=== PATIENT | male | born 1970 | race Caucasian/White ===

== ENCOUNTER 2025-02-18 12:21 | Inpatient (IN) | payer BC, SELFPAY ==
[2025-02-18 07:44] VITALS: BP 159/95
--- NOTE | 2025-02-18 08:11 | ED.GENMED ---
History of Present Illness
General
Chief Complaint: Male Genito-Urinary Symptoms
Source: patient and spouse
Time Seen by Provider: 02/18/25 07:55
History of Present Illness
History of Present Illness:
Note:
CHIEF COMPLAINT(S)
Left groin pain and lump.
HISTORY OF PRESENT ILLNESS
The patient is a 55-year-old male with a history of hypertension and type 2 diabetes who presents with pain and a lump in the left groin area. The symptoms began after moving furniture on Monday, and while taking a shower, the patient felt a lump
that felt inner and potentially like a boil. The pain has increased, and in addition to taking fluids excessively yesterday, the patient reports feeling dehydrated and 'delusional,' with a stated fever of 99.9�F initially recorded outside. The
patient has been managing pain with Ibuprofen and Tylenol but notes significant discomfort, particularly when leaning forward. The patient denies any specific injury but noted discomfort began during the shower after the incident. The patient is
concerned whether the issue is a hernia or an abscess.
CHRONIC MEDICAL CONDITIONS SIGNIFICANTLY AFFECTING CARE
- Hypertension
- Type 2 diabetes
SOCIAL HISTORY
The patient denies smoking tobacco currently but admits to occasional alcohol use. 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
MEDICATIONS
- Lisinopril (for hypertension)
- Metformin (for type 2 diabetes)
- Glipizide (for type 2 diabetes)
PHYSICAL EXAM
- Alert, awake, and oriented; no neurologic deficits; moving all extremities with no edema.
- Temperature: 99.9�F
- Cardiac: S1S2 heart sounds normal, no murmurs, tachycardia present.
- Respiratory: Lungs clear to auscultation, no respiratory distress.
- Abdomen: No costovertebral angle tenderness, no rebound tenderness or guarding; tenderness noted in the left inguinal canal with a mass palpated.
- Extremities: Normal distal pulses, no edema.
PROBLEM LIST
Acute:
- Left groin pain and palpable lump
- Tachycardia
Chronic:
- Hypertension
- Type 2 diabetes
PLAN
- Initiate an intravenous line and conduct blood tests to evaluate infection markers and general health status.
- Administer non-narcotic analgesics for pain relief, considering the patients preference to avoid narcotics due to adverse reactions.
- Assess further for possible hernia or abscess.
- Continue monitoring vital signs and ensure patient is comfortable.
DIFFERENTIAL DIAGNOSIS
The Differential Diagnosis includes, in no particular order and is not limited to:
- Inguinal hernia
- Abscess
- Lymphadenopathy
- Lipoma
- Soft tissue mass
- Testicular torsion
- Varicocele
- Hydrocele
- Epididymitis
- Urinary tract infection
CARE-UPDATE
02/18/25 - 13:12
CT scan shows soft tissue density in the posterior aspect of the left hemiscrotum with soft tissue stranding, suggesting contusion versus inflammation and infection. Ultrasound of testicles indicates normal appearance bilaterally, with noted
left-sided scrotal skin thickening, left hydrocele, and right hydrocele. Patient discussed results and will be admitted under hospitalist care, with urology consultation for scrotal cellulitis and fever, due to concerns for sepsis. Initiated IV
Zosyn per discussion with pharmacists.
Disposition:
DIAGNOSIS
- Scrotal cellulitis with associated fever (ICD-10: L03.319)
SUMMARY OF ENCOUNTER
A 55-year-old male with a history of hypertension and type 2 diabetes presented with left groin pain and a noticeable lump. The symptoms began after moving furniture, leading to the discovery of a lump during a shower. Initial management included
pain relief with Ibuprofen and Tylenol. Due to the development of fever and concerns for potential infection, further evaluation was conducted. Imaging revealed left-sided scrotal skin thickening and hydrocele. The patient exhibited signs of
potential sepsis, prompting admission for further management.
DISPOSITION
Admit
CONSIDERATION FOR ADMISSION
The patient was admitted under hospitalist care for further evaluation and management of scrotal cellulitis and potential sepsis.
ASSESSMENT
The patient presented with left groin pain, a palpable mass, fever, and tachycardia, with imaging suggesting scrotal cellulitis and inflammation, raising concerns for possible sepsis.
EMERGENCY TREATMENTS ADMINISTERED
Intravenous antibiotics (IV Zosyn) were administered per urology consultation for scrotal cellulitis.
MANAGEMENT OF THE PATIENTS CARE WAS DISCUSSED WITH
The case was discussed with the hospitalist and a urology wireless sales consultant for further management of scrotal cellulitis and monitoring for sepsis.
PLAN
- Admit for IV antibiotic therapy and close monitoring for signs of sepsis.
- Urology consultation for further evaluation and management.
- Initiate supportive care with ongoing monitoring of vital signs and symptoms.
INDEPENDENT INTERPRETATION OF TESTS
- My independent interpretation of the CT scan shows a soft tissue density in the posterior aspect of the left hemiscrotum, suggesting contusion versus inflammation and infection.
- My independent interpretation of the ultrasound indicates normal testicular appearance bilaterally, with left-sided scrotal skin thickening and hydrocele.
MEDICATION RECONCILIATION
- Initiated IV Zosyn for treatment of scrotal cellulitis.
MEDICAL DECISION MAKING
Number and Complexity of Problems Addressed:
The patient presented with acute left groin pain and a potential infectious process. Concerns of sepsis necessitated admission and aggressive antibiotic therapy, significantly increasing the complexity of this encounter.
Data:
Reviewed CT scan and ultrasound to guide diagnosis and management plan. Consistency between imaging findings supported the diagnosis of cellulitis.
Risk:
Consideration for hospitalization due to severity of presentation and potential for sepsis was warranted. Radiation exposure from CT scan and the initiation of IV antibiotics were necessary steps in managing the patients condition.
Phy Exam
Physical Exam
Physical Exam:
.
Sepsis
Sepsis Screening
Sepsis Assessment: Sepsis Ruled Out
Sepsis Screen
Sepsis Screen: Sepsis Ruled Out
Date: 02/18/25
Time: 13:16
Course
Orders/Labs/Results
Orders:
Orders
02/18/25 08:08
Ketorolac [Toradol] 15 mg IV NOW STA
02/18/25 08:09
CT Abd/pelvis W Iv Cont Urgent
Comment:
Reason For Exam: llq/ inguinal mass, fever
Urinalysis Reflex To Culture Urgent
02/18/25 08:10
IV Insert/Care/Rem.- Treatment PRN
02/18/25 08:16
Complete Blood Count/With Diff Urgent
Comprehensive Metabolic Panel Urgent
Lactic Acid Q4H
Comment: CANCEL 2nd LACTIC ACID IF 1st LACTIC ACID IS LESS THAN 2
Blood Culture Q30M
TODD Source: Blood/Venous
Specimen Description:
02/18/25 08:26
Lactated Ringers [Lr] 1,000 ml IV BOLUS
02/18/25 08:42
Blood Culture Q30M
TODD Source: Blood/Venous
Specimen Description:
02/18/25 Lunch
2000 calorie (17 carb) Diabetic
At Your Request: Full Participation
Does patient need a safe tray?: No
02/18/25 10:14
Piperacillin/Tazo 4.5 Gram [Zosyn] 4.5 gram in 100 ml IV NOW
02/18/25 10:30
US Scrotum Urgent
Comment:
Reason For Exam: left groin swelling, fever
02/18/25 11:32
Admit/Transfer Patient As Directed
Co-Sign Provider:
Level of Care: Inpatient admission
Assign to:: Medical/Surgical
Physician / Group: Amalia Walter
Diagnosis: sepsis 2/2 left scrotal cellulitis
Reason for Hospitalization: sepsis 2/2 left scrotal cellulitis
Expected length of stay greater than two midnights?: Yes
ELOS- Estimated Length of Stay in days: 3
I certify the patient meets the requirements for IP care: Yes
PRN Pain Medication Management As Directed
May give lesser potent ordered pain med per pt: Yes
preference::
Protocol:: Medication orders for pain may be administered in a
manner that supports deferring to patient preference
when the pt is:
- Requesting an ordered lesser potent pain medication.
Least to most potent pain medications are defined
as: acetaminophen < NSAID < tramadol < opioids
(morphine, oxycodone, hydromorphone).
- Requesting a lesser dose of the same medication IF
ORDERED.
- Requesting a less intrusive route of administration
if both routes are prescribed by the provider (PO <
IV).
02/18/25 11:33
Code Status As Directed
Resuscitation Status: Full Code
02/18/25 11:37
Bedside Glucose Monitoring-ONCE As Directed
02/18/25 11:39
Lactated Ringers [Lr] 500 ml IV BOLUS
02/18/25 12:58
Acetaminophen [Tylenol] 650 mg PO Q4HPRN PRN
Bisacodyl [Dulcolax] 10 mg RECTAL [id number] PRN
Dextrose 50%-Water [Dextrose 50% Syringe] 12.5 grams IV [id number] PRN
Docusate W/Senna [Senokot-S] 1 tablet PO BIDPRN PRN
Glucagon [GlucaGen] 1 mg IM PRN PRN
HYDROmorphone [Dilaudid] 0.5 mg IV Q3HPRN PRN
Lactated Ringers [Lr] 1,000 ml IV 125 mls/hr
Polyethylene Glycol Powder [Miralax] 17 grams PO DAILYPRN PRN
02/18/25 12:58
Activity As Directed
Activity Level: As Tolerated
Bedside Glucose Monitoring As Directed
Frequency: AC&HS
Additional Instructions:: Change to q6h if pt on TPN, tube feeding or not eating
Vital Signs As Directed
Frequency: Per unit guidelines
DX Deep Vein Thrombosis Video Routine
02/18/25 16:30
Insulin Aspart Corrective Low [Novolog Flexpen-Low Resistance] See Protocol SC AC
Piperacillin/Tazo 3.375 Gram [Zosyn] 3.375 gram in 50 ml IV Q6H
02/18/25 17:00
Glipizide [Glucotrol] 10 mg PO BID@0800,1700
02/18/25 20:00
Heparin 5,000 units SC Q12
02/18/25 22:00
Atorvastatin [Lipitor] 40 mg PO HS
02/19/25 06:00
Basic Metabolic Panel IN AM
Complete Blood Count/With Diff IN AM
Glycohemoglobin (HgbA1c) IN AM
Magnesium IN AM
Abnormal Lab Results
02/18/25
08:16
WBC 20.0 H 10^3/uL
(4.8-10.8)
Abs Immat Gran (auto) 0.2 H 10^3/uL
(0-0.05)
Absolute Neuts (auto) 16.9 H 10^3/uL
(1.4-6.5)
Absolute Monos (auto) 1.3 H 10^3/uL
(0.1-0.6)
Immature Gran % 0.8 H %
(0-0.5)
Neutrophils % 84.4 H %
(42.2-75.2)
Lymphocytes % 8.1 L %
(20.5-51.1)
Sodium 133 L mmol/L
(135-145)
BUN 25 H mg/dl
(9-20)
Creatinine 1.6 H mg/dL
(0.7-1.3)
Glucose 320 H mg/dl
(70-99)
Total Bilirubin 1.6 H mg/dl
(0.2-1.3)
AST 16 L U/L
(17-59)
02/18/25 08:16
02/18/25 08:16
Vital Signs
Initial and Last Documented VS:
Initial Vital Signs
Temp Pulse Resp BP Pulse Ox
99.9 F 120 20 159/95 96
02/18/25 07:44 02/18/25 07:44 02/18/25 07:44 02/18/25 07:44 02/18/25 07:44
Last Documented Vital Signs
Temp Pulse Resp BP Pulse Ox
98.4 F 78 18 138/84 98
02/18/25 11:35 02/18/25 11:35 02/18/25 11:35 02/18/25 11:35 02/18/25 11:35
*Pulse Oximetry
Patient hypoxic: no (98% room air)
*Critical Care Note
Total Time (30-74mins, 75-104mins- exclusive of procedures): Not Applicable
ED Attending Note
-
Portions of this chart may have been created with voice recognition software.� Occasional wrong word or��sound alike� substitutions may have occurred due to the inherent limitations of voice recognition software.
Discharge Plan
Departure
Patient Disposition: Admit
Date of Disposition: 02/18/25
Time of Disposition: 10:20
Admit to: Telemetry
Presentation/result/management discussed w/ accepting MD/DO: Hospitalist
Patient with high blood pressure during this ER visit?: Yes
Condition: Fair
Discharge Problem:
Cellulitis of scrotum
Interventions
Interventions:
*Risk Screen - Suicide Last Done: 02/18/25 07:44
*General Assessment Last Done: 02/18/25 12:24
*Neglect/Abuse Screening Last Done: 02/18/25 12:49
*ED- Fall Risk Assessment Last Done: 02/18/25 12:49
*ED COVID-19 Vaccine History Last Done: 02/18/25 07:44
*Nursing Disposition Last Done: 02/18/25 12:49
ED-Male Genitourinary Assessment Last Done: 02/18/25 12:26
Discharge Date and Time
Discharge Date/Time: 02/18/25 12:50
[2025-02-18] MEDS: TORADOL 15 MG IV (08:24)
[2025-02-18 08:26] VITALS: BMI 31.0
[2025-02-18 08:33] LABS: % Basophils 0.4 % (0-2); % Immature Granulocytes 0.8 % (0-0.5); % Lymphocytes 8.1 % (20.5-51.1); % Monocytes 6.3 % (1.7-9.3); % Neutrophils 84.4 % (42.2-75.2); Absolute Basophils 0.1 10^3/uL (0-0.2); Absolute Immature Granulocytes 0.2 10^3/uL (0-0.05); Absolute Lymphocytes 1.6 10^3/uL (1.2-3.4); Absolute Monocytes 1.3 10^3/uL (0.1-0.6); Absolute Neutrophils 16.9 10^3/uL (1.4-6.5); Mean Corp Hgb Conc. 33.3 g/dL (33.0-37.0); Mean Corpuscular Hgb 28.7 pg (27.0-31.0); Mean Platelet Volume 10.1 fL (7.4-10.4); Nucleated Red Blood Cells % 0 % (-); Platelet Count 198 10^3/uL (130-400); Red Blood Cell Count 5.23 10^6/uL (4.70-6.10); Red Cell Dist. Width 13.2 % (11.5-14.5)
[2025-02-18] MEDS: LR 1000 IV ×3 (08:39→19:59)
[2025-02-18 09:01] LABS: ALT (SGPT) 17 U/L (0-50); AST (SGOT) 16 U/L (17-59); Albumin 3.6 g/dl (3.5-5.0); Alkaline Phosphatase 116 U/L (38-126); Blood Urea Nitrogen 25 mg/dl (9-20); Carbon Dioxide 24 mmol/L (22-30); Chloride 102 mmol/L (98-107); Estimated Creatinine Clearance 59 ml/min; Glucose 320 mg/dl (70-99); Potassium 4.4 mmol/L (3.5-5.1); Sodium 133 mmol/L (135-145); Total Bilirubin 1.6 mg/dl (0.2-1.3); Total Protein 6.6 g/dl (6.3-8.2); eGFR 50.57
[2025-02-18 10:18] LABS: Lactic Acid 1.5 mmol/L (0.7-2.0)
[2025-02-18] MEDS: ZOSYN 100 IV (10:29)
--- NOTE | 2025-02-18 11:11 | HPS.HSE ---
Family Physician
-
Family Physician: Merlin Smiley MD
Chief Complaint
-
left scrotal swelling
History of Present Illness
Mr. Rodney Cabrera is a 55 yo man with hx ex-smoker, HTN, DM presents to the ER with left scrotal swelling and fevers.
Patient states on Monday he was listed something heavy and felt a strain in left groin. Yesterday he had increased pain and fevers. Per he felt warm and had some delirium. He has had progressive redness and swelling of left testicle and so
came to the ER.
+ headache earlier today. No chest pain or shortness of breath. No nausea/vomiting/diarrhea; eating and drinking OK. No LE swelling.
Medical History
Past Medical History
Past Medical History: Reports HTN and NIDDM
Past Surgical History: Reports Other
Social History
Tobacco: Former Smoker
Family History
Family History: Not pertinent
Allergies / Home Medications
Allergies reflects when Allergies were last updated in [facility].
Home Medications with original date entered in [facility]
Allergy/Medication List:
Allergies
Allergy/AdvReac Type Severity Reaction Status Date / Time
No Known Allergies Allergy Verified 02/18/25 07:48
Home Medications
atorvastatin 40 mg tablet 40 mg PO HS High Cholesterol 02/18/25
glipizide 10 mg tablet 10 mg PO BID@0800,1700 Diabetes 02/18/25
hydrochlorothiazide 12.5 mg tablet 12.5 mg PO HS Blood Pressure 02/18/25
lisinopril 40 mg tablet 40 mg PO HS Blood Pressure 02/18/25
metformin 1,000 mg tablet 1,000 mg PO BID@0800,1700 Diabetes 02/18/25
Review of Systems
-
History Source: Patient
A 12 point ROS was completed and negative except as noted: Yes
Physical Exam
Vital Signs
Vital Signs
Temp Pulse Resp BP Pulse Ox
99.9 F 120 20 159/95 96
02/18/25 07:44 02/18/25 07:44 02/18/25 07:44 02/18/25 07:44 02/18/25 07:44
Physical Exam
General: No Apparent Distress
Respiratory: Clear; No Wheezes
Cardiac: S1/S2 and Regular Rhythm
GI: Soft and Non Tender
Musculoskeletal: No Edema
Skin: Warm and Dry; No Rash
Neuro: Awake and AO x 3
Psych: Calm
Laboratory Results
-
02/18/25 08:16
02/18/25 08:16
Laboratory Results
Lactic Acid 1.5 mmol/L (0.7-2.0) 02/18/25 08:16
Total Bilirubin 1.6 mg/dl (0.2-1.3) H 02/18/25 08:16
AST 16 U/L (17-59) L 02/18/25 08:16
ALT 17 U/L (0-50) 02/18/25 08:16
Alkaline Phosphatase 116 U/L (38-126) 02/18/25 08:16
Data Reviewed
-
Diagnostic Radiology: Report Reviewed by me
Lab Data: Labs Reviewed by me
Impression/Plan
-
Mr. Rodney Cabrera is a 55 yo man with hx ex-smoker, HTN, DM presents to the ER with left scrotal swelling and fevers.
Triage VS: T 99.9, P 120, RR 20, BP 159/95, SpO2 96%
LABS: WBC 20, Hg 15, PLT 198, Na 133, K+ 4.4, CO2 24, BUN 25, Cr 1.6, Glucose 320, lactate 1.5, T. Bili 1.6, AST 16, ALT 17, Alk Phos 116
Abdomen/Pelvis CT 02/18/25
IMPRESSION: Stranding soft tissue density involving the visualized superior left hemiscrotum. Reported history of recent injury. This could represent stranding from contusion. Main differential consideration of stranding from inflammation/infection.
Of note, the entire scrotum including the testicles are not fully included on the puttc-un-cver of this examination.
There is no evidence for bowel herniation.
Fatty infiltration the liver.
Two 2 mm calcification within the pancreas, compatible with benign dystrophic calcifications. No CT findings to suggest acute pancreatitis.
Mild to moderate atrophy of the left kidney, asymmetric compared to the right.
Bony degenerative changes as described.
Mild to moderate atrophy of the left kidney, asymmetric compared to the right. No gross evidence for significant narrowing of the left renal artery. No other focal abnormality of the kidneys. The visualized pelvicalyceal systems and ureters appear
within normal limits. No abnormality of the urinary bladder.
Scrotal US 02/18/25
IMPRESSION: Normal sonographic appearance of both testes.
Small to moderate-sized right hydrocele. Minimal left hydrocele.
Suggestion of mild left-sided scrotal skin thickening, greater than on the right.
Sepsis secondary to left scrotal cellulitis
-lactate WNL
-admit to med/surg
-CT with stranding left hemiscrotum; US with minimal left hydrocele; mild left-sided scrotal skin thickening
-Urology consulted
-continue IV Zosyn
-IVF
-F/U blood cultures
-F/U UA
NIVIA
-no hydro or bladder abnormality seen on CT
-IVF as above
-hold [employer] lisinopril; HCTZ; Metformin
-no NSAIDs
Essential HTN
-hold [employer]IST lisinopril; HCTZ
NIDDM
-hold [employer]IST Metformin
-[employer]IST Glipizide
-ISS low
HLD - [employer] SPECIALIST Statin
DVT PPx hep subQ
FULL CODE
76 MINUTES spent on patient care
[2025-02-18 11:35] VITALS: BP 138/84
[2025-02-18] MEDS: LR 500 IV (11:55)
[2025-02-18 13:09] LABS: Glucose - Point of Care 315 mg/dl (70-99)
[2025-02-18 13:10] VITALS: BP 129/75
[2025-02-18 13:11] VITALS: BMI 40.8
[2025-02-18] MEDS: NOVOLOG FLEXPEN-LOW RESISTANCE 4 UNITS SC (13:23)
--- NOTE | 2025-02-18 13:34 | PTCARENOTE ---
Received pt as admit from ED. AAOX3. VSS. +2 edema and erythema noted to scrotum. Elevated with towel. Pt denies need for pain medication at this time. IVF infusing per order. Assessment documented. Pt resting in bed, call katz in reach.
--- NOTE | 2025-02-18 14:14 | CM ---
CM reviewed chart and met with pt and his bedside in rm 410. Lives with his in multistory home, [address]. 1st floor bath. Pt independent in ADLs. No history of VN or SNF. CM will continue to follow for all discharge planning needs.
PCP: Merlin Smiley
Pharmacy: [address]
Discharge plan: Anticipate home pending ongoing medical evaluation, continue to follow for needs
[2025-02-18] MEDS: TYLENOL 650 MG PO (15:23)
[2025-02-18 15:57] VITALS: BP 143/83
[2025-02-18] MEDS: ZOSYN 50 IV ×2 (16:30→21:39)
[2025-02-18 16:46] LABS: Urine Albumin 4+ (Neg - Trace); Urine Bilirubin Negative (Negative); Urine Character Clear (Clear); Urine Color Yellow; Urine Glucose 4+ (Negative); Urine Ketone 1+ (Negative); Urine Leukocyte Negative (Negative); Urine Nitrite Negative (Negative); Urine Occult Blood 1+ (Negative); Urine Specific Gravity 1.015 (<1.030); Urine Urobilinogen Negative (Neg - 1+)
[2025-02-18 16:46] LABS: Glucose - Point of Care 379 mg/dl (70-99)
[2025-02-18 17:10] LABS: Urine Squamous Cell 16-20 /LPF (Few)
[2025-02-18 17:11] LABS: Urine Bacteria Few (Negative); Urine Red Blood Cell 0-2 /HPF (0-2)
[2025-02-18] MEDS: GLUCOTROL 10 MG PO (17:23)
[2025-02-18] MEDS: NOVOLOG FLEXPEN 5 UNITS SC (18:31)
[2025-02-18] MEDS: HEPARIN 5000 UNITS SC (19:24)
--- NOTE | 2025-02-18 19:40 | CONS.URO ---
Consultation
-
Date/Time Consultation Performed: 02/18/251939
Performing Provider: Peffer
Reason for Consultation: Cellulitis
Medical History
History of Present Illness
55M admitted for fever and scrotal pain over past few days after some manual work over the weekend
Suspected cellulitis on exam
CT scan showed scrotal skin stranding and some concern for a lesion, for which urology was consulted
Follow up US showed no concerning mass, only scrotal skin thickening
No prior urologic hx
No urinary symptoms
No abscess or purulent drainage
Past Medical History
Past Medical History: HTN and NIDDM
Social History
Tobacco: Former Smoker
Family History
Family History: Reviewed & Not Pertinent
Allergies/Home Medications
Allergies
Allergy/AdvReac Type Severity Reaction Status Date / Time
No Known Allergies Allergy Verified 02/18/25 07:48
Home Medications
�Medication �Instructions �Recorded �Confirmed �Type
atorvastatin 40 mg tablet 40 mg PO HS High Cholesterol 02/18/25 02/18/25 History
glipizide 10 mg tablet 10 mg PO BID@0800,1700 Diabetes 02/18/25 02/18/25 History
hydrochlorothiazide 12.5 mg tablet 12.5 mg PO HS Blood Pressure 02/18/25 02/18/25 History
lisinopril 40 mg tablet 40 mg PO HS Blood Pressure 02/18/25 02/18/25 History
metformin 1,000 mg tablet 1,000 mg PO BID@0800,1700 Diabetes 02/18/25 02/18/25 History
Physical Exam
Vital Signs
Vital Signs
Temp Pulse Resp BP Pulse Ox
100.2 F 106 22 143/83 96
02/18/25 15:57 02/18/25 15:57 02/18/25 15:57 02/18/25 15:57 02/18/25 15:57
Lab / Testing Results
Laboratory Results
02/18/25 08:16
02/18/25 08:16
Physical Exam
General: Well Developed, Well Nourished and No Apparent Distress
Respiratory: Clear and Non Labored Respirations
GI: Soft and Non Tender
Genito-urinary: No Costovertebral Tend and Other (scrotal skin erythematous and slightly tender. Normal testicles b/l. No abscess or collection. No crepitus)
Neuro: AO x 3
Psych: Calm and Intact Judgement
Assessment / Plan
-
55M with sepsis from scrotal cellulitis
No concern on exam or imaging for drainable collection/abscess or Moncho's gangrene
No obstructive uropathy contributing to NIVIA
- Continue antibiotic course for cellulitis
- No urologic intervention necessary
- Will sign off - please call with any further questions
[2025-02-18 21:37] LABS: Glucose - Point of Care 277 mg/dl (70-99)
[2025-02-18] MEDS: LIPITOR 40 MG PO (21:39)
[2025-02-18 23:00] VITALS: BP 156/84
[2025-02-19] MEDS: ZOSYN 50 IV ×2 (03:57→09:54)
[2025-02-19] MEDS: LR 1000 IV (03:58)
[2025-02-19 07:31] LABS: % Basophils 0.4 % (0-2); % Eosinophils 0.7 % (0-6); % Immature Granulocytes 1.3 % (0-0.5); % Lymphocytes 7.2 % (20.5-51.1); % Monocytes 7.1 % (1.7-9.3); % Neutrophils 83.3 % (42.2-75.2); Absolute Basophils 0.1 10^3/uL (0-0.2); Absolute Eosinophils 0.1 10^3/uL (0-0.7); Absolute Immature Granulocytes 0.2 10^3/uL (0-0.05); Absolute Lymphocytes 1.3 10^3/uL (1.2-3.4); Absolute Monocytes 1.3 10^3/uL (0.1-0.6); Absolute Neutrophils 15.2 10^3/uL (1.4-6.5); Hematocrit 39.5 % (39.0-52.0); Hemoglobin 13.4 g/dL (13.0-18.0); Mean Corp Hgb Conc. 33.9 g/dL (33.0-37.0); Mean Corpuscular Volume 85.5 fL (80.0-94.0); Mean Platelet Volume 9.8 fL (7.4-10.4); Nucleated Red Blood Cells % 0 % (-); Platelet Count 187 10^3/uL (130-400); Red Blood Cell Count 4.62 10^6/uL (4.70-6.10); Red Cell Dist. Width 13.2 % (11.5-14.5); White Blood Cell Count 18.3 10^3/uL (4.8-10.8)
[2025-02-19 08:03] LABS: Blood Urea Nitrogen 24 mg/dl (9-20); Calcium 8.7 mg/dl (8.4-10.2); Carbon Dioxide 25 mmol/L (22-30); Chloride 105 mmol/L (98-107); Estimated Creatinine Clearance 73 ml/min; Glucose 220 mg/dl (70-99); Magnesium 1.8 mg/dl (1.6-2.3); Potassium 3.9 mmol/L (3.5-5.1); Sodium 135 mmol/L (135-145); eGFR 54.64
[2025-02-19 08:07] LABS: Glucose - Point of Care 234 mg/dl (70-99)
[2025-02-19] MEDS: NOVOLOG FLEXPEN-LOW RESISTANCE 2 UNITS SC (08:11)
[2025-02-19] MEDS: HEPARIN 5000 UNITS SC ×2 (08:11→20:49)
[2025-02-19] MEDS: GLUCOTROL 10 MG PO (08:11)
[2025-02-19 08:19] VITALS: BP 137/89
[2025-02-19 09:06] LABS: Glycohemoglobin (HgbA1c) 12.8 % (4.0-5.6)
[2025-02-19] MEDS: KCL 20 MEQ PO (10:34)
[2025-02-19] MEDS: LASIX 20 MG IV (10:34)
--- NOTE | 2025-02-19 10:38 | PHA.VAN.IN ---
Assessment
- Assessment
Renal Function: Unknown baseline (1.6-> 1.5 )
Renal Function may be Overestimated due to: obesity
Maximum Temperature: 100.4 - 02/18/25 23:00
Concomitant Antimicrobials: ancef
AUC Dosing Plan
- Dosing Variables
Dosing Weight (kg): 125
Dosing CrCl (ml/min): 73
Vd coefficient (L/kg): 0.6
- Empiric Dosing
Initial / Loading Dose: 1250 mg - administration pending
Maintenance Regimen: 1250 mg q12h
Estimated AUC (mcg*h/mL): 538
Estimated Peak (mcg*h/mL): 30.8
Estimated Trough (mcg/ml): 10.7
in lieu of loading dose start 1250 mg now - then 1250 mg BID at 1800
- Monitoring
No levels ordered at this time: consider levels after 1800 dose tomorrow
Pharmacokinetics Vancomycin I
- -
Patient Age: 55
Patient Sex: Male
Vancomycin Day #: 1
Indication: Skin And Soft Tissue
Requesting Provider: Jose Angel
Height / Weight:
Height 5 ft 9 in
Actual Weight 125.333 kg
Pertinent Past Medical History: BMI ~ 40.8;
- Vital Signs / Lab Results
Temp Pulse Resp BP Pulse Ox
99.1 F 98 18 137/89 94
02/19/25 08:19 02/19/25 08:19 02/19/25 08:19 02/19/25 08:19 02/19/25 08:19
Lab Results - Hematology
02/18/25 02/19/25
08:16 06:46
WBC 20.0 H 18.3 H
Lab Results - Chemistry
02/18/25 02/19/25
08:16 06:46
BUN 25 H 24 H
Creatinine 1.6 H 1.5 H
Estimated Creat Clear 59 73
Albumin 3.6
02/18/25 02/18/25
08:16 12:15
Lactic Acid 1.5 Cancelled
Lab Results - Urine
02/18/25
16:00
Urine Nitrite (Reflex) Negative
Leukocyte Esterase Rfl Negative
Urine WBC (Reflex) 3-5
Ur Squamous Epith Cells 16-20
Urine Bacteria (Reflex) Few A
Microbiology Results
02/18/25 08:42 Blood Culture - Preliminary
Blood/Venous No Growth in 24 hours- Final report to follow
02/18/25 08:16 Blood Culture - Preliminary
Blood/Venous No Growth in 24 hours- Final report to follow
--- NOTE | 2025-02-19 10:40 | W.PN.HOSP.TC ---
Addendum entered and electronically signed by Amalia Walter MD 02/20/25 10:39:
Obesity
-patient reports recent dietary changes
Addendum entered and electronically signed by Amalia Walter MD 02/19/25 12:25:
will order IV Ceftriaxone instead of Cefazolin
Original Note:
Today's Communication/Plan
-
see plan
Assessment / Plan
Assessment / Plan
Mr. Rodney Cabrera is a 55 yo man with hx ex-smoker, HTN, DM presents to the ER with left scrotal swelling and fevers.
Abdomen/Pelvis CT 02/18/25
IMPRESSION: Stranding soft tissue density involving the visualized superior left hemiscrotum. Reported history of recent injury. This could represent stranding from contusion. Main differential consideration of stranding from inflammation/infection.
Of note, the entire scrotum including the testicles are not fully included on the ubdsm-uj-jkxe of this examination.
There is no evidence for bowel herniation.
Fatty infiltration the liver.
Two 2 mm calcification within the pancreas, compatible with benign dystrophic calcifications. No CT findings to suggest acute pancreatitis.
Mild to moderate atrophy of the left kidney, asymmetric compared to the right.
Bony degenerative changes as described.
Mild to moderate atrophy of the left kidney, asymmetric compared to the right. No gross evidence for significant narrowing of the left renal artery. No other focal abnormality of the kidneys. The visualized pelvicalyceal systems and ureters appear
within normal limits. No abnormality of the urinary bladder.
Scrotal US 02/18/25
IMPRESSION: Normal sonographic appearance of both testes.
Small to moderate-sized right hydrocele. Minimal left hydrocele.
Suggestion of mild left-sided scrotal skin thickening, greater than on the right.
Sepsis secondary to left scrotal cellulitis
-lactate WNL
-admit to med/surg
-CT with stranding left hemiscrotum; US with minimal left hydrocele; mild left-sided scrotal skin thickening
-Urology consult appreciated
-change abx to vanc/cefazolin for cellulitis without e/o deeper infection
NIVIA
-no hydro or bladder abnormality seen on CT
-s/p IVF now swollen, will give one dose lasix 20mg IV x 1 (not heart failure; iatrogenic swelling)
-hold FINISH REPAIR WORKER lisinopril; HCTZ; Metformin
-no NSAIDs
Essential HTN
-hold FINISH REPAIR WORKER lisinopril; HCTZ
NIDDM
-hold FINISH REPAIR WORKER Metformin
-FINISH REPAIR WORKER Glipizide
-ISS low
-A1c > 12 --> consult DM MIXER CRANE OPERATOR
HLD - FINISH REPAIR WORKER Statin
DVT PPx hep subQ
FULL CODE
51 minutes spent on patient care
Anticipated Discharge: 24 - 48 hours
Subjective/Interval History
-
Date of Service: February 19, 2025
scrotum remains swollen
he also feels he has lower extremity swelling from fluids
urinating a lot
Objective Data
-
Labs:
Laboratory Results
02/19/25
06:46
WBC 18.3 H
Hgb 13.4
Hct 39.5
Plt Count 187
Sodium 135
Potassium 3.9
Chloride 105
Carbon Dioxide 25
BUN 24 H
Creatinine 1.5 H
Glucose 220 H
Calcium 8.7
Vital Signs:
Vital Signs
Temp Pulse Resp BP Pulse Ox
99.1 F 98 18 137/89 94
02/19/25 08:19 02/19/25 08:19 02/19/25 08:19 02/19/25 08:19 02/19/25 08:19
I&O
02/18/25 02/19/25 02/20/25
06:59 06:59 06:59
Intake Total 240 / 240
Output Total 700 / 700
Balance -460 / -460
Review of Systems
-
History Source: Patient
All other systems: Reviewed and negative
Physical Exam
-
General: No Apparent Distress
HEENT: PERRLA
Respiratory: Clear to Auscultation; Negative Wheezes
Cardiac: Regular Rhythm and S1/S2
GI: Soft and Nontender
Genito-urinary: Other (left scrotum with persistent redness, mildly improved and persistent swelling )
Musculoskeletal: Other (bilateral 1+ pedal edema )
Skin: Warm and Dry; Negative Rash
Neuro: AO x 3
Psych: Calm
Data Reviewed
-
Diagnostic Radiology: Report Reviewed by me
Labs: Labs Reviewed by me
[2025-02-19] MEDS: VANCOCIN 275 MG IV ×2 (11:01→17:14)
[2025-02-19 12:12] LABS: Glucose - Point of Care 344 mg/dl (70-99)
[2025-02-19] MEDS: NOVOLOG FLEXPEN-LOW RESISTANCE 4 UNITS SC (12:15)
--- NOTE | 2025-02-19 13:09 | PN.DE.MGMTRT ---
Insulin Management
- -
02/19/2025 Diabetes Management Consult
Patient admitted 02/18 with scrotal swelling, fever. PMH HTN, diabetes. Prior to admission was taking glipizide 10 mg BID and metformin 1000 mg BID. A1C 12.8%, cr 1.5, eGFR 54.64..
Patient is awake alert and oriented resting in bed able to discuss diabetes care. at bedside and supportive.Patient states his last A1C was 9 something and doctor suggested Mandy. Patient and admit it was over $1,000 per month and
they could not afford it. Patient states he used to test his glucose years ago but has not tested 'in a long time'. Needs a new monitor,
Lengthy discussion with patient regarding options and importance of glucose control. I provided with a list of other GLP-1's to call insurance to see if any other is covered. In light of A1C will start lantus and novolog. 18 units lantus @
hs with novolog 6 units ac and low corrective.
I demonstrated prep and injection technique and provided printed instructions for pen use.
Will change diet from 2000 calorie to 1800. Will ask dietitian to see patient for dietary guidelines.
Discussed with nurse. Patient to prepare and self inject AC novolg with nursing supervision.
Will follow
Diabetes History
- -
Type of Diabetes: 2 requiring insulin
Pre-Admission Diabetes Regimen
02/19/25
06:46
Creatinine 1.5 H
Lab Results
Hemoglobin A1c 12.8 % (4.0-5.6) H 02/19/25 06:46
Insulin Pump Settings
IP Diabetes Regimen
02/18/25 02/18/25 02/18/25
13:08 16:44 21:35
Glucose
POC Glucose 315 H 379 H 277 H
02/19/25 02/19/25 02/19/25
06:46 08:04 12:11
Glucose 220 H
POC Glucose 234 H 344 H
Patient Education
--- NOTE | 2025-02-19 13:42 | CM ---
Chart reviewed and plan is to home no needs when stable.
Plan; Home no needs when stable.
--- NOTE | 2025-02-19 13:48 | PN.CDI ---
CDI
- -
CDI:
Physician Documentation Request
Admit Date: 02/18/25 12:21
Dear Doctor Jose Angel,
Clinical Indicators:
Height: 5 ft 9 in
Weight: 276 lbs 5 oz
BMI:
02/18/25
13:11
Body Mass Index (BMI) 40.8
02/19 RD note, 'BMI 40.8 morbidly obese range (02/18).
If possible, please provide an associated diagnosis related to the abnormal BMI ( > or = to 40), such as:
Morbid obesity
Obesity
BMI is not significant
Other
Use of terms such as suspected, likely, concern for, or probable (associated with a specific diagnosis that is being evaluated, monitored, or treated as if it exists) are acceptable and can be coded in the inpatient setting, when documented at the
time of discharge.
Thank you,
YAHAIRA Ingram RN
CDI Specialist
available via tiger text
Please use your independent medical judgment in providing your response.
[2025-02-19] MEDS: NOVOLOG FLEXPEN 6 UNITS SC ×2 (14:50→17:14)
[2025-02-19 15:54] VITALS: BP 178/83
[2025-02-19] MEDS: ROCEPHIN 2000 MG IV (15:59)
[2025-02-19] MEDS: STERILE WATER FOR INJECTION 20 ML IV (15:59)
[2025-02-19] MEDS: TYLENOL 650 MG PO (16:02)
[2025-02-19] MEDS: CATAPRES 0.1 MG PO (16:10)
[2025-02-19 17:12] LABS: Glucose - Point of Care 267 mg/dl (70-99)
[2025-02-19] MEDS: NOVOLOG FLEXPEN-LOW RESISTANCE 3 UNITS SC (17:14)
[2025-02-19 17:15] VITALS: BP 132/91
[2025-02-19] MEDS: LIPITOR 40 MG PO (20:57)
[2025-02-19 21:25] LABS: Glucose - Point of Care 253 mg/dl (70-99)
[2025-02-19] MEDS: LANTUS 0.18 UNITS SC (21:32)
[2025-02-19 23:45] VITALS: BP 154/103
[2025-02-20 03:39] VITALS: BP 135/65
[2025-02-20] MEDS: VANCOCIN 275 MG IV ×2 (05:50→17:36)
[2025-02-20 07:20] VITALS: BP 152/90
--- NOTE | 2025-02-20 08:15 | PN.DIAED06 ---
Meal Plans - Regular
- Meal Plan
Diabetic Meal Plan Name: 1800 calories
Breakfast - Total Carbohydrate (grams): 45
Breakfast - Starch Carbohydrate: 0
Breakfast - Fruit Carbohydrate: 0
Breakfast - Milk Carbohydrate: 0
Breakfast - Nonstarchy Vegetables: Yes
Breakfast - Meat/Protein: 1
Breakfast - Fat: 2
Morning Snack - Total Carbohydrate (grams): 15
Morning Snack - Starch Carbohydrate: 0
Morning Snack - Fruit Carbohydrate: 0
Morning Snack - Milk Carbohydrate: 0
Morning Snack - Nonstarchy Vegetables: Yes
Morning Snack - Meat/Protein: 0.5
Morning Snack - Fat: 0
Lunch - Total Carbohydrate (grams): 45
Lunch - Starch Carbohydrate: 0
Lunch - Fruit Carbohydrate: 0
Lunch - Milk Carbohydrate: 0
Lunch - Nonstarchy Vegetables: Yes
Lunch - Meat/Protein: 3
Lunch - Fat: 1
Afternoon Snack - Total Carbohydrate (grams): 15
Afternoon Snack - Starch Carbohydrate: 0
Afternoon Snack - Fruit Carbohydrate: 0
Afternoon Snack - Milk Carbohydrate: 0
Afternoon Snack - Nonstarchy Vegetables: Yes
Afternoon Snack - Meat/Protein: 0.5
Afternoon Snack - Fat: 0
Dinner - Total Carbohydrate (grams): 45
Dinner - Starch Carbohydrate: 0
Dinner - Fruit Carbohydrate: 0
Dinner - Milk Carbohydrate: 0
Dinner - Nonstarchy Vegetables: Yes
Dinner - Meat/Protein: 3
Dinner - Fat: 2
Evening Snack - Total Carbohydrate (grams): 15
Evening Snack - Starch Carbohydrate: 0
Evening Snack - Fruit Carbohydrate: 0
Evening Snack - Milk Carbohydrate: 0
Evening Snack - Nonstarchy Vegetables: Yes
Evening Snack - Meat/Protein: 0
Evening Snack - Fat: 0
[2025-02-20 08:19] LABS: Glucose - Point of Care 197 mg/dl (70-99)
[2025-02-20] MEDS: NOVOLOG FLEXPEN-LOW RESISTANCE 1 UNITS SC (08:27)
[2025-02-20] MEDS: HEPARIN 5000 UNITS SC ×2 (08:29→22:39)
[2025-02-20] MEDS: NOVOLOG FLEXPEN SC (08:46)
--- NOTE | 2025-02-20 10:35 | W.PN.HOSP.TC ---
Today's Communication/Plan
-
see plan
IV Vanc/Ceftriaxone
awaiting labs
new start insulin - appreciate DM INDIVIDUALIZED EDUCATION PLAN AIDE
likely DC tomorrow
Assessment / Plan
Assessment / Plan
Mr. Rodney Cabrera is a 55 yo man with hx ex-smoker, HTN, DM presents to the ER with left scrotal swelling and fevers.
Abdomen/Pelvis CT 02/18/25
IMPRESSION: Stranding soft tissue density involving the visualized superior left hemiscrotum. Reported history of recent injury. This could represent stranding from contusion. Main differential consideration of stranding from inflammation/infection.
Of note, the entire scrotum including the testicles are not fully included on the nusff-ng-rcox of this examination.
There is no evidence for bowel herniation.
Fatty infiltration the liver.
Two 2 mm calcification within the pancreas, compatible with benign dystrophic calcifications. No CT findings to suggest acute pancreatitis.
Mild to moderate atrophy of the left kidney, asymmetric compared to the right.
Bony degenerative changes as described.
Mild to moderate atrophy of the left kidney, asymmetric compared to the right. No gross evidence for significant narrowing of the left renal artery. No other focal abnormality of the kidneys. The visualized pelvicalyceal systems and ureters appear
within normal limits. No abnormality of the urinary bladder.
Scrotal US 02/18/25
IMPRESSION: Normal sonographic appearance of both testes.
Small to moderate-sized right hydrocele. Minimal left hydrocele.
Suggestion of mild left-sided scrotal skin thickening, greater than on the right.
Sepsis secondary to left scrotal cellulitis
-lactate WNL
-admit to med/surg
-CT with stranding left hemiscrotum; US with minimal left hydrocele; mild left-sided scrotal skin thickening
-Urology consult appreciated
-change abx to vanc/ceftriaxone for cellulitis without e/o deeper infection
-*awaiting AM labs
NIVIA
-no hydro or bladder abnormality seen on CT
-s/p IVF with swelling s/p one dose lasix 20mg IV x 1 (not heart failure; iatrogenic swelling)
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
-no NSAIDs
-*awaiting AM labs
Essential HTN
-hold SOW FARM BARN TECHNICIAN lisinopril; HCTZ
NIDDM
-hold SOW FARM BARN TECHNICIAN Metformin
-stop Glipizide
-A1c > 12 --> DM INDIVIDUALIZED EDUCATION PLAN AIDE consult appreciated, and patient started on insulin - will DC on insulin
HLD - SOW FARM BARN TECHNICIAN Statin
DVT PPx hep subQ
FULL CODE
51 minutes spent on patient care
Anticipated Discharge: 24 - 48 hours
Subjective/Interval History
-
Date of Service: February 20, 2025
scrotum feels less swollen and tender today per patient
in general he feels less swollen
no chest pain or shortness of breath
Objective Data
-
Labs:
Laboratory Results
02/20/25
10:28
WBC Pending
Hgb Pending
Hct Pending
Plt Count Pending
Sodium Pending
Potassium Pending
Chloride Pending
Carbon Dioxide Pending
BUN Pending
Creatinine Pending
Glucose Pending
Calcium Pending
Vital Signs:
Vital Signs
Temp Pulse Resp BP Pulse Ox
98.2 F 92 16 152/90 94
02/20/25 07:20 02/20/25 07:20 02/20/25 07:20 02/20/25 07:20 02/20/25 07:20
I&O
02/19/25 02/20/25 02/21/25
06:59 06:59 06:59
Intake Total 240 / 240
Output Total 700 / 700 400 / 400
Balance -460 / -460 -400 / -400
Review of Systems
-
History Source: Patient
All other systems: Reviewed and negative
Physical Exam
-
General: No Apparent Distress
HEENT: PERRLA
Respiratory: Clear to Auscultation; Negative Wheezes
Cardiac: Regular Rhythm and S1/S2
GI: Soft and Nontender
Genito-urinary: Other (left scrotum with persistent redness, improved with improved swelling)
Musculoskeletal: Other (bilateral 1+ pedal edema )
Skin: Warm and Dry; Negative Rash
Neuro: AO x 3
Psych: Calm
Data Reviewed
-
Diagnostic Radiology: Report Reviewed by me
Labs: Labs Reviewed by me
--- NOTE | 2025-02-20 10:55 | PN.DE.MGMTRT ---
Insulin Management
- -
02/20/2025 Diabetes Management Consult Follow up
Patient admitted 02/18 with scrotal swelling, fever. PMH HTN, diabetes. Prior to admission was taking glipizide 10 mg BID and metformin 1000 mg BID. A1C 12.8%, cr 1.5, eGFR 54.64..
Patient is awake alert and oriented resting in bed able to discuss diabetes care. Patient states his last A1C was 9 something and doctor suggested Mandy. Patient admits it was over $1,000 per month and they could not afford it. Patient states
he used to test his glucose years ago but has not tested 'in a long time'. Needs a new monitor,
Lengthy discussion with patient regarding options and importance of glucose control.
02/19 Glucose range 220 to 344. Started 18 units lantus @ hs with novolog 6 units ac and low corrective.
02/20 Fasting glucose 197. AC novolog increased to 8 units, not given with breakfast as pharmacy pushed first dose to lunch. Will increase hs lantus to 22 units.
I demonstrated prep and injection technique and provided printed instructions for pen use.
Will change diet from 2000 calorie to 1800. Will ask dietitian to see patient for dietary guidelines.
I provided patient with Nutrition education booklet and 1800 calorie diet and reviewed extensively. Patient verbalized understanding.
Provided Contour next glucose monitor and instructed.
Discussed with nurse. Patient to prepare and self inject AC novolg with nursing supervision.
Will follow
Diabetes History
- -
Type of Diabetes: 2 requiring insulin
Pre-Admission Diabetes Regimen
Lab Results
Hemoglobin A1c 12.8 % (4.0-5.6) H 02/19/25 06:46
Insulin Pump Settings
IP Diabetes Regimen
02/19/25 02/19/25 02/19/25
12:11 17:07 21:23
POC Glucose 344 H 267 H 253 H
02/20/25
08:17
POC Glucose 197 H
Meal type: Breakfast
Amount consumed: 100%
Patient Education
[2025-02-20 11:05] LABS: Blood Urea Nitrogen 23 mg/dl (9-20); Calcium 8.7 mg/dl (8.4-10.2); Carbon Dioxide 26 mmol/L (22-30); Chloride 103 mmol/L (98-107); Estimated Creatinine Clearance 84 ml/min; Glucose 391 mg/dl (70-99); Potassium 4.5 mmol/L (3.5-5.1); Sodium 134 mmol/L (135-145); eGFR > 60.00
[2025-02-20 11:12] LABS: % Basophils 0.4 % (0-2); % Immature Granulocytes 0.8 % (0-0.5); % Lymphocytes 7.9 % (20.5-51.1); % Monocytes 6.2 % (1.7-9.3); % Neutrophils 84.7 % (42.2-75.2); Absolute Basophils 0.1 10^3/uL (0-0.2); Absolute Immature Granulocytes 0.2 10^3/uL (0-0.05); Absolute Lymphocytes 1.5 10^3/uL (1.2-3.4); Absolute Monocytes 1.2 10^3/uL (0.1-0.6); Absolute Neutrophils 15.6 10^3/uL (1.4-6.5); Hematocrit 41.5 % (39.0-52.0); Hemoglobin 13.6 g/dL (13.0-18.0); Mean Corp Hgb Conc. 32.8 g/dL (33.0-37.0); Mean Corpuscular Hgb 28.7 pg (27.0-31.0); Mean Corpuscular Volume 87.6 fL (80.0-94.0); Mean Platelet Volume 9.7 fL (7.4-10.4); Nucleated Red Blood Cells % 0 % (-); Platelet Count 231 10^3/uL (130-400); Red Blood Cell Count 4.74 10^6/uL (4.70-6.10); White Blood Cell Count 18.5 10^3/uL (4.8-10.8)
--- NOTE | 2025-02-20 11:15 | PHA.VAN.FU ---
Vancomycin Assessment / Plan
- Assessment
Renal Function: SCR Decreasing (1.6->1.5->1.3)
In the past 24 hrs, patient has been: Afebrile
Concomitant Antimicrobials: ceftriaxone
- Dosing Plan
Continue: vancomycin 1250 mg q12h - started 1100 02/19
- Monitoring Plan
No level(s) ordered at this time: consider levels after 1800 dose 02/21 if pt still on(likely discharge tomorr
- Follow Up
Pharmacy will continue to follow.
Vancomycin Follow UP
- -
Patient Age: 55
Patient Sex: Male
Vancomycin Day #: 2
Indication: Skin And Soft Tissue
Requesting Provider: Jose Angel
Height / Weight:
Height 5 ft 9 in
Actual Weight 125.333 kg
Pertinent Past Medical History: BMI ~ 40.8;
- Vital Signs / Lab Results
Temp Pulse Resp BP Pulse Ox
98.2 F 92 16 152/90 94
02/20/25 07:20 02/20/25 07:20 02/20/25 07:20 02/20/25 07:20 02/20/25 08:45
Lab Results - Hematology
02/18/25 02/19/25 02/20/25
08:16 06:46 10:38
WBC 20.0 H 18.3 H 18.5 H
Lab Results - Chemistry
02/18/25 02/19/25 02/20/25
08:16 06:46 10:38
BUN 25 H 24 H 23 H
Creatinine 1.6 H 1.5 H 1.3
Estimated Creat Clear 59 73 84
Albumin 3.6
02/18/25 02/18/25
08:16 12:15
Lactic Acid 1.5 Cancelled
Microbiology Results
02/18/25 08:42 Blood Culture - Preliminary
Blood/Venous No Growth in 48 hours- Final report to follow
02/18/25 08:16 Blood Culture - Preliminary
Blood/Venous No Growth in 48 hours- Final report to follow
[2025-02-20 13:52] LABS: Glucose - Point of Care 285 mg/dl (70-99)
[2025-02-20] MEDS: TUMS CHEWABLE TABLET 400 MG PO ×2 (13:52→18:35)
[2025-02-20] MEDS: NOVOLOG FLEXPEN-LOW RESISTANCE 3 UNITS SC (13:53)
[2025-02-20] MEDS: NOVOLOG FLEXPEN 8 UNITS SC ×2 (13:54→17:34)
--- NOTE | 2025-02-20 14:21 | CM ---
Diabetes management asked CM to assist in inquiring patient's rx coverage for long lasting insulin (Semglee, Lantus, Basaglar, Toujeo, Tresiba)
CM called [facility], spoke w/ Suni to review patient's benefit coverage and estimated co pays.
Semglee would require an appeal as it is not included, Lantus and Toujeo are the preferred alternatives w/ a $0 co pay
Basaglar kwikpen would be a $0 co pay, covered, Basaglar tempo pen is not covered
Tresiba is not covered
Updated diabetes SHELL CORE AND MOLDING SUPERVISOR
--- NOTE | 2025-02-20 14:54 | PTCARENOTE ---
Educated patient about steps with injecting insulin. Patient injected himself with insulin for lunch with no issue. Will continue for dinner.
[2025-02-20 15:20] VITALS: BP 157/94
[2025-02-20] MEDS: ROCEPHIN 2000 MG IV (16:04)
[2025-02-20] MEDS: STERILE WATER FOR INJECTION 20 ML IV (16:04)
[2025-02-20 16:06] LABS: Glucose - Point of Care 374 mg/dl (70-99)
[2025-02-20] MEDS: NOVOLOG FLEXPEN-LOW RESISTANCE 5 UNITS SC (17:34)
[2025-02-20 21:20] LABS: Glucose - Point of Care 250 mg/dl (70-99)
[2025-02-20] MEDS: ZESTRIL 20 MG PO (22:38)
[2025-02-20] MEDS: ORETIC 12.5 MG PO (22:38)
[2025-02-20] MEDS: LIPITOR 40 MG PO (22:38)
[2025-02-20] MEDS: LANTUS 0.22 UNITS SC (22:39)
[2025-02-20 23:00] VITALS: BP 153/98
[2025-02-21] MEDS: VANCOCIN 275 MG IV (05:26)
[2025-02-21 07:28] LABS: % Basophils 0.6 % (0-2); % Lymphocytes 10.7 % (20.5-51.1); % Monocytes 7.9 % (1.7-9.3); % Neutrophils 78.8 % (42.2-75.2); Absolute Basophils 0.1 10^3/uL (0-0.2); Absolute Eosinophils 0.2 10^3/uL (0-0.7); Absolute Immature Granulocytes 0.2 10^3/uL (0-0.05); Absolute Lymphocytes 1.7 10^3/uL (1.2-3.4); Absolute Monocytes 1.2 10^3/uL (0.1-0.6); Absolute Neutrophils 12.4 10^3/uL (1.4-6.5); Hematocrit 40.6 % (39.0-52.0); Hemoglobin 13.4 g/dL (13.0-18.0); Mean Corpuscular Hgb 28.8 pg (27.0-31.0); Mean Corpuscular Volume 87.1 fL (80.0-94.0); Mean Platelet Volume 9.7 fL (7.4-10.4); Nucleated Red Blood Cells % 0 % (-); Platelet Count 252 10^3/uL (130-400); Red Blood Cell Count 4.66 10^6/uL (4.70-6.10); Red Cell Dist. Width 13.1 % (11.5-14.5); White Blood Cell Count 15.8 10^3/uL (4.8-10.8)
--- NOTE | 2025-02-21 07:52 | PN.DE.MGMTRT ---
Insulin Management
- -
02/21/2025: Diabetes Management Follow up
Patient admitted 02/18 with scrotal swelling, fever. PMH HTN, diabetes. Prior to admission was taking glipizide 10 mg BID and metformin 1000 mg BID. A1C 12.8%, cr 1.5, eGFR 54.64. Patient states his last A1C was 9 something and doctor suggested
Mandy. Patient admits it was over $1,000 per month and they could not afford it. Patient states he used to test his glucose years ago but has not tested 'in a long time'. Needs a new monitor.
Patient is awake alert and oriented sitting up @ edge of bed, offers no complaints, able to discuss diabetes care.
02/19 Glucose range 220 to 344. Started 18 units Lantus @ hs with NovoLog 6 units AC and low corrective.
02/20 Fasting glucose 197. AC NovoLog increased to 8 units in AM, breakfast dose was not given, HS Lantus was increased to 22 units.
02/20 premeal glucose remained elevated, 197 to 374, requiring 1-5 units of additional corrective insulin
Will increase AC NovoLog to 12 units. Fasting glucose 198 V, 212 POC, will increase Lantus to 25 units. Cont moderate corrective with meals.
Lengthy discussion with patient regarding options and importance of glucose control.
I demonstrated prep and injection technique and provided printed instructions for pen use.
I provided patient with Nutrition education booklet and 1800 calorie diet and reviewed extensively. Patient verbalized understanding.
Provided Contour next glucose monitor and instructed, script added to ambulatory orders.
Discussed with nurse. Patient to prepare and self inject AC NovoLog with nursing supervision.
Will cont to follow
Diabetes History
- -
Type of Diabetes: 2 requiring insulin
Pre-Admission Diabetes Regimen
02/20/25
10:38
Creatinine 1.3
Lab Results
Hemoglobin A1c 12.8 % (4.0-5.6) H 02/19/25 06:46
Insulin Pump Settings
IP Diabetes Regimen
02/20/25 02/20/25 02/20/25
08:17 10:38 13:50
Glucose 391 H
POC Glucose 197 H 285 H
02/20/25 02/20/25
16:05 21:18
Glucose
POC Glucose 374 H 250 H
Meal type: Lunch
Meal type: Breakfast
Amount consumed: 100%
Amount consumed: 100%
Patient Education
[2025-02-21 08:05] VITALS: BP 174/99
[2025-02-21 08:35] LABS: Blood Urea Nitrogen 18 mg/dl (9-20); Carbon Dioxide 27 mmol/L (22-30); Chloride 105 mmol/L (98-107); Estimated Creatinine Clearance 84 ml/min; Glucose 198 mg/dl (70-99); Potassium 4.1 mmol/L (3.5-5.1); Sodium 138 mmol/L (135-145); eGFR > 60.00
[2025-02-21] MEDS: NOVOLOG FLEXPEN-LOW RESISTANCE 2 UNITS SC (08:38)
[2025-02-21] MEDS: HEPARIN 5000 UNITS SC ×2 (08:39→21:03)
[2025-02-21] MEDS: NOVOLOG FLEXPEN 12 UNITS SC ×3 (08:39→17:29)
[2025-02-21 08:43] LABS: Glucose - Point of Care 216 mg/dl (70-99)
[2025-02-21] MEDS: NOVOLOG FLEXPEN SC (08:45)
[2025-02-21 10:49] VITALS: BP 153/105
--- NOTE | 2025-02-21 11:19 | W.PN.HOSP.TC ---
Today's Communication/Plan
-
scrotal US
ID consult
Assessment / Plan
Assessment / Plan
Mr. Rodney Cabrera is a 55 yo man with hx ex-smoker, HTN, DM presents to the ER with left scrotal swelling and fevers.
Abdomen/Pelvis CT 02/18/25
IMPRESSION: Stranding soft tissue density involving the visualized superior left hemiscrotum. Reported history of recent injury. This could represent stranding from contusion. Main differential consideration of stranding from inflammation/infection.
Of note, the entire scrotum including the testicles are not fully included on the dndli-vq-guxl of this examination.
There is no evidence for bowel herniation.
Fatty infiltration the liver.
Two 2 mm calcification within the pancreas, compatible with benign dystrophic calcifications. No CT findings to suggest acute pancreatitis.
Mild to moderate atrophy of the left kidney, asymmetric compared to the right.
Bony degenerative changes as described.
Mild to moderate atrophy of the left kidney, asymmetric compared to the right. No gross evidence for significant narrowing of the left renal artery. No other focal abnormality of the kidneys. The visualized pelvicalyceal systems and ureters appear
within normal limits. No abnormality of the urinary bladder.
Scrotal US 02/18/25
IMPRESSION: Normal sonographic appearance of both testes.
Small to moderate-sized right hydrocele. Minimal left hydrocele.
Suggestion of mild left-sided scrotal skin thickening, greater than on the right.
Sepsis secondary to left scrotal cellulitis
-CT with stranding left hemiscrotum; US with minimal left hydrocele; mild left-sided scrotal skin thickening
-lactate WNL
-admitted to med/surg
-Urology consult appreciated
-abx changed from IV Zosyn to IV Vanc/Ceftriaxone on 02/19
-repeat US today
-with slow improvement will consult ID
NIVIA
-no hydro or bladder abnormality seen on CT
-s/p IVF with swelling s/p one dose lasix 20mg IV x 1 (not heart failure; iatrogenic swelling)
-renal function WNL now
Essential HTN
-resume RETARDER OPERATOR lisinopril; HCTZ
NIDDM
-hold RETARDER OPERATOR Metformin
-stop Glipizide
-A1c > 12 --> DM SENIOR HR GENERALIST consult appreciated, and patient started on insulin - will DC on insulin
HLD - RETARDER OPERATOR Statin
DVT PPx hep subQ
FULL CODE
51 minutes spent on patient care
Anticipated Discharge: 24 - 48 hours
Subjective/Interval History
-
Date of Service: February 21, 2025
overall feeling better but reports scrotum is very swollen still and feels it's becoming more so
Objective Data
-
Labs:
Laboratory Results
02/21/25
07:00
WBC 15.8 H
Hgb 13.4
Hct 40.6
Plt Count 252
Sodium 138
Potassium 4.1
Chloride 105
Carbon Dioxide 27
BUN 18
Creatinine 1.3
Glucose 198 H
Calcium 9.0
Vital Signs:
Vital Signs
Temp Pulse Resp BP Pulse Ox
98.3 F 99 18 153/105 98
02/21/25 08:05 02/21/25 10:49 02/21/25 08:05 02/21/25 10:49 02/21/25 08:05
I&O
02/20/25 02/21/25 02/22/25
06:59 06:59 06:59
Intake Total 480 / 480
Output Total 400 / 400 1700 / 1700
Balance -400 / -400 -1220 / -1220
Review of Systems
-
History Source: Patient
All other systems: Reviewed and negative
Physical Exam
-
General: No Apparent Distress
HEENT: PERRLA
Respiratory: Clear to Auscultation; Negative Wheezes
Cardiac: Regular Rhythm and S1/S2
GI: Soft and Nontender
Genito-urinary: Other (left scrotum with persistent redness and swelling with increased area induration)
Musculoskeletal: Other (bilateral 1+ pedal edema )
Skin: Warm and Dry; Negative Rash
Neuro: AO x 3
Psych: Calm
Data Reviewed
-
Diagnostic Radiology: Report Reviewed by me
Labs: Labs Reviewed by me
--- NOTE | 2025-02-21 11:48 | CM ---
Chart reviewed. Care ongoing at this time.
ID consult
CM will cont to follow for d/c needs
Plan: Home, no needs at this time
[2025-02-21 11:50] LABS: Glucose - Point of Care 278 mg/dl (70-99)
--- NOTE | 2025-02-21 13:07 | PHA.VAN.FU ---
Vancomycin Assessment / Plan
- Assessment
Renal Function: SCR Decreasing
WBC's are: Trending Down
In the past 24 hrs, patient has been: Afebrile
Concomitant Antimicrobials: ceftriaxone
- Dosing Plan
Continue: vanc 1250 mg q12h
- Monitoring Plan
Peak Level: 02/21 2100
Trough Level: 02/22 0530
- Follow Up
Pharmacy will continue to follow.
Vancomycin Follow UP
- -
Patient Age: 55
Patient Sex: Male
Vancomycin Day #: 3
Indication: Skin And Soft Tissue
Requesting Provider: Jose Angel
Height / Weight:
Height 5 ft 9 in
Actual Weight 125.333 kg
Pertinent Past Medical History: BMI ~ 40.8;
- Vital Signs / Lab Results
Temp Pulse Resp BP Pulse Ox
98.3 F 99 18 153/105 98
02/21/25 08:05 02/21/25 10:49 02/21/25 08:05 02/21/25 10:49 02/21/25 12:13
Lab Results - Hematology
02/19/25 02/20/25 02/21/25
06:46 10:38 07:00
WBC 18.3 H 18.5 H 15.8 H
Lab Results - Chemistry
02/19/25 02/20/25 02/21/25
06:46 10:38 07:00
BUN 24 H 23 H 18
Creatinine 1.5 H 1.3 1.3
Estimated Creat Clear 73 84 84
Microbiology Results
02/18/25 08:42 Blood Culture - Preliminary
Blood/Venous No Growth in 72 hours- Final report to follow
02/18/25 08:16 Blood Culture - Preliminary
Blood/Venous No Growth in 72 hours- Final report to follow
[2025-02-21] MEDS: NOVOLOG FLEXPEN-LOW RESISTANCE 3 UNITS SC ×2 (13:40→17:29)
[2025-02-21] MEDS: TYLENOL 650 MG PO (13:43)
[2025-02-21 14:55] VITALS: BP 166/88
[2025-02-21] MEDS: ROCEPHIN 2000 MG IV (16:07)
[2025-02-21] MEDS: STERILE WATER FOR INJECTION 20 ML IV (16:07)
--- NOTE | 2025-02-21 16:41 | CON.ID ---
Consultation
-
Date/Time Consultation Requested: 02/21/2025 1117
Date/Time Consultation Performed: 02/21/2025 1640
Requesting Provider: Dr. Walter
Performing Provider: Dr. Rodriguez
Reason for Consultation: Scrotal cellulitis
Chief Complaint / Past History
History of Present Illness
Rodney Cabrera is a 55-year-old man being evaluated at the request of Dr. Walter regarding left scrotal cellulitis. History is obtained from chart review, along with patient interview. Additional history was obtained from the patient's who is
at the bedside.
The patient reports that 6 days ago he had been moving furniture with his son. Later in the day he felt a small lump on the left side of his scrotum, which he thought might be a boil. The next day he noted that the bump was slightly increased, and
he began to use warm compresses to the area. The next day he reports that he 'felt feverish' although he did go to work, but left left early as he did not feel well. The next day (3 days ago) he reports fever at home, and an increase in the size
of the left scrotal lump. At this point in time he came to the emergency room for further evaluation. Here, he was found to have a leukocytosis, and was started on empiric antibiotics.
At this time, he notes ongoing discomfort of the left scrotal area, although he notes that it is improved. He has noted some mild increase in the swelling, but notes that his fevers are down. He has noted some increase in pain today. No pain with
urination.
Past History
Additional Past Medical History:
HTN
DM type II
HLD
Past Surgical History: None
Allergy History:
No Known Allergies Allergy (Verified 02/18/25 07:48)
Medications Reviewed: Yes
Current Antibiotics:
Ceftriaxone 2 g IV every 24 hours
Discontinued: Zosyn; vancomycin
Social History
Tobacco: Non-Smoker
Alcohol: Occasional
Drug: None
Personal:
Living: With Family
Employment: Employed
Family History
Family History: Not Pertinent
Review of Systems
Vital Signs
Temp Pulse Resp BP Pulse Ox
98.3 F 99 18 153/105 98
02/21/25 08:05 02/21/25 10:49 02/21/25 08:05 02/21/25 10:49 02/21/25 12:13
Physical Exam
Physical Exam
Constitutional: No Acute Distress, Comfortable and Non-toxic
Eyes: No Conjunctival Hemorrhage and Sclera Anicteric
Oral: No Thrush and No Ulcers
Cardiovascular: S1/S2; Negative S3/S4 or Murmur
Pulmonary: Non Labored
Gastrointestinal: Soft and Non Tender
Genito-Urinary: Other (Left scrotal area with marked induration along the entire left side. No fluctuant areas noted. Mild tenderness appreciated.)
Extremities: Negative Edema, Cyanosis or Erythema
Skin: Warm and Dry; Negative Rash or Jaundice
Neurological: Awake and Alert
Psychological: Calm
Lab / Diagnostic Study Results
02/21/25 07:00
02/21/25 07:00
Abs Immat Gran (auto) 0.2 10^3/uL (0-0.05) H 02/21/25 07:00
Absolute Neuts (auto) 12.4 10^3/uL (1.4-6.5) H 02/21/25 07:00
Absolute Lymphs (auto) 1.7 10^3/uL (1.2-3.4) 02/21/25 07:00
Absolute Monos (auto) 1.2 10^3/uL (0.1-0.6) H 02/21/25 07:00
Absolute Basos (auto) 0.1 10^3/uL (0-0.2) 02/21/25 07:00
Immature Gran % 1.0 % (0-0.5) H 02/21/25 07:00
Neutrophils % 78.8 % (42.2-75.2) H 02/21/25 07:00
Lymphocytes % 10.7 % (20.5-51.1) L 02/21/25 07:00
Monocytes % 7.9 % (1.7-9.3) 02/21/25 07:00
Eosinophils % 1.0 % (0-6) 02/21/25 07:00
Basophils % 0.6 % (0-2) 02/21/25 07:00
Lactic Acid Cancelled 02/18/25 12:15
Ur Squamous Epith Cells 16-20 /LPF (Few) 02/18/25 16:00
Microbiology Results
Micro:
02/18/25 08:42 Blood Culture - Preliminary
Blood/Venous No Growth in 72 hours- Final report to follow
02/18/25 08:16 Blood Culture - Preliminary
Blood/Venous No Growth in 72 hours- Final report to follow
Imaging:
02/18/2025 CT abdomen/pelvis: Stranding soft tissue density involving the visualized superior left hemiscrotum.
Assessment / Plan
Left scrotal cellulitis
- Suspect staph or strep as etiology
Leukocytosis
Fever; improved
HTN
DM type II
HLD
Recommendations:
Overall appearance would be consistent with a staph or strep infection (although suspect staph, possibly MRSA)
Discontinue further ceftriaxone.
Begin daptomycin 1000 mg IV every 24 hours
Warm compress/K-pad to the area.
Follow white count and temperature curve.
Will hold atorvastatin while patient is on daptomycin.
Further recommendations as additional data is returned.
[2025-02-21 17:24] LABS: Glucose - Point of Care 296 mg/dl (70-99)
[2025-02-21] MEDS: CUBICIN 20 MG IV (18:05)
[2025-02-21] MEDS: ORETIC 12.5 MG PO (21:03)
[2025-02-21] MEDS: ZESTRIL 40 MG PO (21:04)
[2025-02-21 21:05] LABS: Glucose - Point of Care 276 mg/dl (70-99)
[2025-02-21] MEDS: LANTUS 0.22 UNITS SC (21:07)
[2025-02-21 21:40] LABS: Vancomycin Peak 11.6 ug/ml (18-26)
[2025-02-21 23:14] VITALS: BP 146/85
[2025-02-22 02:39] LABS: Glucose - Point of Care 235 mg/dl (70-99)
[2025-02-22] MEDS: TYLENOL 650 MG PO ×2 (02:42→11:45)
[2025-02-22 05:20] LABS: % Basophils 0.7 % (0-2); % Eosinophils 1.7 % (0-6); % Immature Granulocytes 1.5 % (0-0.5); % Lymphocytes 11.1 % (20.5-51.1); % Monocytes 7.3 % (1.7-9.3); % Neutrophils 77.7 % (42.2-75.2); Absolute Basophils 0.1 10^3/uL (0-0.2); Absolute Eosinophils 0.3 10^3/uL (0-0.7); Absolute Immature Granulocytes 0.2 10^3/uL (0-0.05); Absolute Lymphocytes 1.7 10^3/uL (1.2-3.4); Absolute Monocytes 1.1 10^3/uL (0.1-0.6); Absolute Neutrophils 11.8 10^3/uL (1.4-6.5); Hematocrit 41.8 % (39.0-52.0); Hemoglobin 13.9 g/dL (13.0-18.0); Mean Corp Hgb Conc. 33.3 g/dL (33.0-37.0); Mean Corpuscular Hgb 28.8 pg (27.0-31.0); Mean Corpuscular Volume 86.5 fL (80.0-94.0); Mean Platelet Volume 9.7 fL (7.4-10.4); Nucleated Red Blood Cells % 0 % (-); Platelet Count 257 10^3/uL (130-400); Red Blood Cell Count 4.83 10^6/uL (4.70-6.10); White Blood Cell Count 15.1 10^3/uL (4.8-10.8)
[2025-02-22 05:39] LABS: Blood Urea Nitrogen 20 mg/dl (9-20); Calcium 9.2 mg/dl (8.4-10.2); Carbon Dioxide 25 mmol/L (22-30); Chloride 104 mmol/L (98-107); Estimated Creatinine Clearance 91 ml/min; Glucose 251 mg/dl (70-99); Potassium 3.9 mmol/L (3.5-5.1); Sodium 137 mmol/L (135-145); eGFR > 60.00
[2025-02-22 05:48] LABS: Vancomycin Trough 8.7 ug/ml (5-20)
[2025-02-22 06:00] VITALS: BMI 40.2
[2025-02-22 07:15] VITALS: BP 168/104
[2025-02-22 07:35] LABS: Glucose - Point of Care 224 mg/dl (70-99)
[2025-02-22] MEDS: NOVOLOG FLEXPEN-LOW RESISTANCE 2 UNITS SC (08:24)
[2025-02-22] MEDS: NOVOLOG FLEXPEN 12 UNITS SC ×3 (08:25→17:21)
[2025-02-22] MEDS: HEPARIN 5000 UNITS SC ×2 (08:25→21:19)
--- NOTE | 2025-02-22 11:04 | W.PN.HOSP.TC ---
Today's Communication/Plan
-
IV Daptomycin
appreciate ID
Assessment / Plan
Assessment / Plan
Mr. Rodney Cabrera is a 55 yo man with hx ex-smoker, HTN, DM presents to the ER with left scrotal swelling and fevers.
Abdomen/Pelvis CT 02/18/25
IMPRESSION: Stranding soft tissue density involving the visualized superior left hemiscrotum. Reported history of recent injury. This could represent stranding from contusion. Main differential consideration of stranding from inflammation/infection.
Of note, the entire scrotum including the testicles are not fully included on the kyiaj-un-alna of this examination.
There is no evidence for bowel herniation.
Fatty infiltration the liver.
Two 2 mm calcification within the pancreas, compatible with benign dystrophic calcifications. No CT findings to suggest acute pancreatitis.
Mild to moderate atrophy of the left kidney, asymmetric compared to the right.
Bony degenerative changes as described.
Mild to moderate atrophy of the left kidney, asymmetric compared to the right. No gross evidence for significant narrowing of the left renal artery. No other focal abnormality of the kidneys. The visualized pelvicalyceal systems and ureters appear
within normal limits. No abnormality of the urinary bladder.
Scrotal US 02/18/25
IMPRESSION: Normal sonographic appearance of both testes.
Small to moderate-sized right hydrocele. Minimal left hydrocele.
Suggestion of mild left-sided scrotal skin thickening, greater than on the right.
Sepsis secondary to left scrotal cellulitis
-CT with stranding left hemiscrotum; US with minimal left hydrocele; mild left-sided scrotal skin thickening
-lactate WNL
-admitted to med/surg
-Urology consult appreciated
-abx changed from IV Zosyn to IV Vanc/Ceftriaxone on 02/19; persistent leukocytosis and swelling; ID consulted on 02/21 and IV antibiotics changed to Daptomycin
-appreciate ID consult
NIVIA
-no hydro or bladder abnormality seen on CT
-s/p IVF with swelling s/p one dose lasix 20mg IV x 1 (not heart failure; iatrogenic swelling)
-renal function WNL now
Essential HTN
-resume ELECTRONIC MAINTENANCE SUPERVISOR lisinopril; HCTZ
NIDDM
-hold ELECTRONIC MAINTENANCE SUPERVISOR Metformin
-stop Glipizide
-A1c > 12 --> DM FUNDS TRANSFER CLERK consult appreciated, and patient started on insulin - will DC on insulin
HLD - ELECTRONIC MAINTENANCE SUPERVISOR Statin
DVT PPx hep subQ
FULL CODE
51 minutes spent on patient care
Anticipated Discharge: 24 - 48 hours
Subjective/Interval History
-
Date of Service: February 22, 2025
persistent pain/swelling left testicle
Objective Data
-
Labs:
Laboratory Results
02/22/25
04:52
WBC 15.1 H
Hgb 13.9
Hct 41.8
Plt Count 257
Sodium 137
Potassium 3.9
Chloride 104
Carbon Dioxide 25
BUN 20
Creatinine 1.2
Glucose 251 H
Calcium 9.2
Vital Signs:
Vital Signs
Temp Pulse Resp BP Pulse Ox
97.8 F 91 18 168/104 97
02/22/25 07:15 02/22/25 07:15 02/22/25 07:15 02/22/25 07:15 02/22/25 08:00
I&O
02/21/25 02/22/25 02/23/25
06:59 06:59 06:59
Intake Total 480 / 480 1440 / 1440
Output Total 1700 / 1700 1350 / 1350
Balance -1220 / -1220 90 / 90
Review of Systems
-
History Source: Patient
All other systems: Reviewed and negative
Physical Exam
-
General: No Apparent Distress
HEENT: PERRLA
Respiratory: Clear to Auscultation; Negative Wheezes
Cardiac: Regular Rhythm and S1/S2
GI: Soft and Nontender
Genito-urinary: Other (left scrotum with persistent redness and swelling with increased area induration)
Musculoskeletal: No Edema
Skin: Warm and Dry; Negative Rash
Neuro: AO x 3
Psych: Calm
Data Reviewed
-
Diagnostic Radiology: Report Reviewed by me
Labs: Labs Reviewed by me
[2025-02-22 11:49] VITALS: BP 164/100
--- NOTE | 2025-02-22 12:07 | W.PN.ID1 ---
Date of Service
Date of Service: February 22, 2025
Today's Communication
Continue daptomycin
Assessment / Plan
Left scrotal cellulitis
- Suspect staph or strep as etiology
Leukocytosis
Fever; improved
HTN
DM type II
HLD
Recommendations:
Overall appearance would be consistent with a staph or strep infection (although suspect staph, possibly MRSA)
Continue daptomycin 1000 mg IV every 24 hours
Warm compress/K-pad to the area.
Follow white count and temperature curve.
Will hold atorvastatin while patient is on daptomycin.
Monitor for clinical improvement.
����������������������������������������������������������
Chief Complaint
-: Other (Left scrotal cellulitis)
Subjective / Review of Systems
Patient seen and examined. Notes continued left scrotal discomfort.
Review of Systems: No Fever and No Chills
Vital Signs / Physical Exam
Vital Signs
Vital Signs
Temp Pulse Resp BP Pulse Ox
97.8 F 94 18 164/100 97
02/22/25 07:15 02/22/25 11:49 02/22/25 07:15 02/22/25 11:49 02/22/25 08:00
Physical Exam
Constitutional: No Acute Distress, Comfortable and Non-toxic
Eyes: Sclera Anicteric
Pulmonary: Non Labored
Gastrointestinal: Non Distended
Neurological: Awake and Alert
Psychological: Calm
Objective Data
Lab Data
Lab Results
Laboratory Tests
02/21/25
07:00
WBC 15.8 H
02/22/25 04:52
02/22/25 04:52
Estimated Creat Clear 91 ml/min 02/22/25 04:52
Lactic Acid Cancelled 02/18/25 12:15
Total Bilirubin 1.6 mg/dl (0.2-1.3) H 02/18/25 08:16
AST 16 U/L (17-59) L 02/18/25 08:16
ALT 17 U/L (0-50) 02/18/25 08:16
Alkaline Phosphatase 116 U/L (38-126) 02/18/25 08:16
Most recent labs reviewed.
Micro Results:
02/18/25 08:42 Blood Culture - Preliminary
Blood/Venous No Growth in 4 days- Final report to follow
02/18/25 08:16 Blood Culture - Preliminary
Blood/Venous No Growth in 4 days- Final report to follow
Imaging:
02/18/2025 CT abdomen/pelvis: Stranding soft tissue density involving the visualized superior left hemiscrotum.
[2025-02-22 12:20] LABS: Glucose - Point of Care 314 mg/dl (70-99)
[2025-02-22] MEDS: NOVOLOG FLEXPEN-LOW RESISTANCE 4 UNITS SC ×2 (13:14→17:22)
[2025-02-22 15:00] VITALS: BP 165/102
[2025-02-22 16:27] LABS: Glucose - Point of Care 305 mg/dl (70-99)
[2025-02-22] MEDS: TUMS CHEWABLE TABLET 400 MG PO (18:28)
[2025-02-22] MEDS: CUBICIN 20 MG IV (18:28)
--- NOTE | 2025-02-22 19:34 | PTCARENOTE ---
Pt complaining of 10/10 heartburn pain with frequent belching. EKG performed and showed NSR. PRN tums administered. Pt states relief after tums.
[2025-02-22] MEDS: ORETIC 12.5 MG PO (21:19)
[2025-02-22] MEDS: ZESTRIL 20 MG PO (21:19)
[2025-02-22 21:27] LABS: Glucose - Point of Care 206 mg/dl (70-99)
[2025-02-22] MEDS: LANTUS 0.22 UNITS SC (21:27)
[2025-02-22] MEDS: PROTONIX 40 MG PO (22:18)
[2025-02-22 23:22] VITALS: BP 132/73
[2025-02-23 05:58] LABS: % Eosinophils 1.4 % (0-6); % Immature Granulocytes 3.4 % (0-0.5); % Lymphocytes 16.7 % (20.5-51.1); % Monocytes 7.4 % (1.7-9.3); % Neutrophils 70.1 % (42.2-75.2); Absolute Basophils 0.1 10^3/uL (0-0.2); Absolute Eosinophils 0.2 10^3/uL (0-0.7); Absolute Immature Granulocytes 0.5 10^3/uL (0-0.05); Absolute Lymphocytes 2.4 10^3/uL (1.2-3.4); Absolute Monocytes 1.1 10^3/uL (0.1-0.6); Absolute Neutrophils 10.2 10^3/uL (1.4-6.5); Hematocrit 43.9 % (39.0-52.0); Hemoglobin 14.7 g/dL (13.0-18.0); Mean Corp Hgb Conc. 33.5 g/dL (33.0-37.0); Mean Corpuscular Hgb 28.7 pg (27.0-31.0); Mean Corpuscular Volume 85.6 fL (80.0-94.0); Mean Platelet Volume 9.5 fL (7.4-10.4); Nucleated Red Blood Cells % 0 % (-); Platelet Count 325 10^3/uL (130-400); Red Blood Cell Count 5.13 10^6/uL (4.70-6.10); Red Cell Dist. Width 12.7 % (11.5-14.5); White Blood Cell Count 14.6 10^3/uL (4.8-10.8)
[2025-02-23 06:14] LABS: Blood Urea Nitrogen 19 mg/dl (9-20); Calcium 9.5 mg/dl (8.4-10.2); Carbon Dioxide 26 mmol/L (22-30); Chloride 102 mmol/L (98-107); Estimated Creatinine Clearance 90 ml/min; Glucose 205 mg/dl (70-99); Potassium 4.3 mmol/L (3.5-5.1); Sodium 136 mmol/L (135-145); eGFR > 60.00
[2025-02-23 07:53] LABS: Glucose - Point of Care 208 mg/dl (70-99)
[2025-02-23] MEDS: TYLENOL 650 MG PO (08:48)
[2025-02-23 08:49] VITALS: BP 142/95
[2025-02-23] MEDS: NOVOLOG FLEXPEN-LOW RESISTANCE 2 UNITS SC (08:49)
[2025-02-23] MEDS: HEPARIN 5000 UNITS SC ×2 (08:50→21:52)
[2025-02-23] MEDS: ZESTRIL 20 MG PO ×2 (08:50→21:50)
[2025-02-23] MEDS: NOVOLOG FLEXPEN 12 UNITS SC ×3 (08:50→17:36)
[2025-02-23] MEDS: PROTONIX 40 MG PO (08:50)
--- NOTE | 2025-02-23 11:03 | W.PN.ID1 ---
Date of Service
Date of Service: February 23, 2025
Today's Communication
Continue antibiotics
Assessment / Plan
Left scrotal cellulitis
- Suspect staph or strep as etiology
Leukocytosis
Fever; improved
HTN
DM type II
HLD
Recommendations:
Overall appearance would be consistent with a staph or strep infection (although suspect staph, possibly MRSA)
Continue daptomycin 1000 mg IV every 24 hours
Warm compress/K-pad to the area.
Follow white count and temperature curve. White count mildly improved today. Decreased pain is encouraging.
Will hold atorvastatin while patient is on daptomycin.
Continue to monitor for clinical improvement.
����������������������������������������������������������
Chief Complaint
-: Other (Left scrotal cellulitis)
Subjective / Review of Systems
Patient seen and examined. Reports feeling somewhat improved today, with decreased pain of the left scrotal area no fevers or chills. Has been using warming pad to the area intermittently
Vital Signs / Physical Exam
Vital Signs
Vital Signs
Temp Pulse Resp BP Pulse Ox
97.5 F 92 18 142/95 98
02/23/25 08:49 02/23/25 08:49 02/23/25 08:49 02/23/25 08:49 02/23/25 08:49
Physical Exam
Constitutional: No Acute Distress, Comfortable and Non-toxic
Eyes: Sclera Anicteric
Pulmonary: Non Labored
Gastrointestinal: Non Distended
Neurological: Awake and Alert
Psychological: Calm
Objective Data
Lab Data
Lab Results
02/23/25 05:04
02/23/25 05:04
Estimated Creat Clear 90 ml/min 02/23/25 05:04
Lactic Acid Cancelled 02/18/25 12:15
Total Bilirubin 1.6 mg/dl (0.2-1.3) H 02/18/25 08:16
AST 16 U/L (17-59) L 02/18/25 08:16
ALT 17 U/L (0-50) 02/18/25 08:16
Alkaline Phosphatase 116 U/L (38-126) 02/18/25 08:16
Most recent labs reviewed.
Micro Results:
02/18/25 08:42 Blood Culture - Final
Blood/Venous No Growth - Final Report
02/18/25 08:16 Blood Culture - Final
Blood/Venous No Growth - Final Report
Imaging:
02/18/2025 CT abdomen/pelvis: Stranding soft tissue density involving the visualized superior left hemiscrotum.
--- NOTE | 2025-02-23 12:17 | W.PN.HOSP.TC ---
Today's Communication/Plan
-
IV Daptomycin, appreciate ID
Assessment / Plan
Assessment / Plan
Mr. Rodney Cabrera is a 55 yo man with hx ex-smoker, HTN, DM presents to the ER with left scrotal swelling and fevers admitted for sepsis 2/2 scrotal cellulitis.
Abdomen/Pelvis CT 02/18/25
IMPRESSION: Stranding soft tissue density involving the visualized superior left hemiscrotum. Reported history of recent injury. This could represent stranding from contusion. Main differential consideration of stranding from inflammation/infection.
Of note, the entire scrotum including the testicles are not fully included on the evybr-qk-hojj of this examination.
There is no evidence for bowel herniation.
Fatty infiltration the liver.
Two 2 mm calcification within the pancreas, compatible with benign dystrophic calcifications. No CT findings to suggest acute pancreatitis.
Mild to moderate atrophy of the left kidney, asymmetric compared to the right.
Bony degenerative changes as described.
Mild to moderate atrophy of the left kidney, asymmetric compared to the right. No gross evidence for significant narrowing of the left renal artery. No other focal abnormality of the kidneys. The visualized pelvicalyceal systems and ureters appear
within normal limits. No abnormality of the urinary bladder.
Scrotal US 02/18/25
IMPRESSION: Normal sonographic appearance of both testes.
Small to moderate-sized right hydrocele. Minimal left hydrocele.
Suggestion of mild left-sided scrotal skin thickening, greater than on the right.
Sepsis secondary to left scrotal cellulitis
-CT with stranding left hemiscrotum; US with minimal left hydrocele; mild left-sided scrotal skin thickening
-lactate WNL
-admitted to med/surg
-Urology consult appreciated
-abx changed from IV Zosyn to IV Vanc/Ceftriaxone on 02/19; persistent leukocytosis and swelling; ID consulted on 02/21 and IV antibiotics changed to Daptomycin
-appreciate ID consult - continue IV Daptomycin
NIVIA
-no hydro or bladder abnormality seen on CT
-s/p IVF with swelling s/p one dose lasix 20mg IV x 1 (not heart failure; iatrogenic swelling)
-renal function WNL now
Essential HTN
-resumed CONTACT LENS INSPECTOR lisinopril; HCTZ
-I changed Lisinopril to 20mg PO BID to better have daytime control HTN
NIDDM
-hold CONTACT LENS INSPECTOR Metformin
-stop Glipizide
-A1c > 12 --> DM LIQUOR COMMISSIONER consult appreciated, and patient started on insulin - will DC on insulin, patient has been practicing injections
HLD - CONTACT LENS INSPECTOR Statin
DVT PPx hep subQ
FULL CODE
51 minutes spent on patient care
Anticipated Discharge: 24 - 48 hours
Subjective/Interval History
-
Date of Service: February 23, 2025
finally starting to feel better
less pain and swelling
Objective Data
-
Labs:
Laboratory Results
02/23/25
05:04
WBC 14.6 H
Hgb 14.7
Hct 43.9
Plt Count 325 D
Sodium 136
Potassium 4.3
Chloride 102
Carbon Dioxide 26
BUN 19
Creatinine 1.2
Glucose 205 H
Calcium 9.5
Vital Signs:
Vital Signs
Temp Pulse Resp BP Pulse Ox
97.5 F 92 18 142/95 98
02/23/25 08:49 02/23/25 08:49 02/23/25 08:49 02/23/25 08:49 02/23/25 08:49
I&O
02/22/25 02/23/25 02/24/25
06:59 06:59 06:59
Intake Total 1440 / 1440 900 / 900
Output Total 1350 / 1350 1475 / 1475
Balance 90 / 90 -575 / -575
Review of Systems
-
History Source: Patient
All other systems: Reviewed and negative
Physical Exam
-
General: No Apparent Distress
HEENT: PERRLA
Respiratory: Clear to Auscultation; Negative Wheezes
Cardiac: Regular Rhythm and S1/S2
GI: Soft and Nontender
Genito-urinary: Other (left scrotum with redness and swelling)
Musculoskeletal: No Edema
Skin: Warm and Dry; Negative Rash
Neuro: AO x 3
Psych: Calm
Data Reviewed
-
Diagnostic Radiology: Report Reviewed by me
Labs: Labs Reviewed by me
[2025-02-23 13:53] LABS: Glucose - Point of Care 342 mg/dl (70-99)
[2025-02-23] MEDS: NOVOLOG FLEXPEN-LOW RESISTANCE 4 UNITS SC ×2 (13:53→17:36)
[2025-02-23 16:53] VITALS: BP 148/91
[2025-02-23 17:36] LABS: Glucose - Point of Care 330 mg/dl (70-99)
[2025-02-23] MEDS: CUBICIN 20 MG IV (17:40)
[2025-02-23 21:10] LABS: Glucose - Point of Care 230 mg/dl (70-99)
[2025-02-23] MEDS: LANTUS 0.22 UNITS SC (21:53)
[2025-02-23] MEDS: ORETIC 12.5 MG PO (22:03)
[2025-02-23 23:04] VITALS: BP 141/81
[2025-02-24] MEDS: TYLENOL 650 MG PO ×3 (01:27→18:17)
[2025-02-24 06:36] LABS: % Eosinophils 2.5 % (0-6); % Immature Granulocytes 4.3 % (0-0.5); % Lymphocytes 17.3 % (20.5-51.1); % Monocytes 7.4 % (1.7-9.3); % Neutrophils 67.5 % (42.2-75.2); Absolute Basophils 0.2 10^3/uL (0-0.2); Absolute Eosinophils 0.4 10^3/uL (0-0.7); Absolute Immature Granulocytes 0.6 10^3/uL (0-0.05); Absolute Lymphocytes 2.5 10^3/uL (1.2-3.4); Absolute Monocytes 1.1 10^3/uL (0.1-0.6); Absolute Neutrophils 9.9 10^3/uL (1.4-6.5); Hematocrit 42.6 % (39.0-52.0); Hemoglobin 14.3 g/dL (13.0-18.0); Mean Corp Hgb Conc. 33.6 g/dL (33.0-37.0); Mean Corpuscular Hgb 28.8 pg (27.0-31.0); Mean Corpuscular Volume 85.7 fL (80.0-94.0); Mean Platelet Volume 9.1 fL (7.4-10.4); Nucleated Red Blood Cells % 0 % (-); Platelet Count 343 10^3/uL (130-400); Red Blood Cell Count 4.97 10^6/uL (4.70-6.10); Red Cell Dist. Width 12.9 % (11.5-14.5); White Blood Cell Count 14.7 10^3/uL (4.8-10.8)
[2025-02-24 07:31] LABS: Blood Urea Nitrogen 22 mg/dl (9-20); Calcium 9.2 mg/dl (8.4-10.2); Carbon Dioxide 28 mmol/L (22-30); Chloride 101 mmol/L (98-107); Estimated Creatinine Clearance 77 ml/min; Glucose 247 mg/dl (70-99); Potassium 4.3 mmol/L (3.5-5.1); Sodium 136 mmol/L (135-145); eGFR 59.36
--- NOTE | 2025-02-24 07:40 | PN.DE.MGMTRT ---
Insulin Management
- -
02/24/2025: Diabetes Management Follow up
Patient admitted 02/18 with scrotal swelling, fever. PMH HTN, diabetes. Prior to admission was taking glipizide 10 mg BID and metformin 1000 mg BID. A1C 12.8%, cr 1.5, eGFR 54.64. Patient states his last A1C was 9 something and doctor suggested
Mandy. Patient admits it was over $1,000 per month and they could not afford it. Patient states he used to test his glucose years ago but has not tested 'in a long time'. Needs a new monitor.
Patient is awake alert and oriented sitting up @ edge of bed, offers no complaints, able to discuss diabetes care.
02/23 Glucose range 208 to 342. Received 22 units lantus @ hs with NovoLog 12 units AC and low corrective.
02/24 Fasting glucose 247 this AM. Will increase AC NovoLog to 20 units, will increase Lantus to 26 units. Cont moderate corrective with meals.
Lengthy discussion with patient regarding options and importance of glucose control.
I demonstrated prep and injection technique and provided printed instructions for pen use.
I provided patient with Nutrition education booklet and 1800 calorie diet and reviewed extensively. Patient verbalized understanding.
Provided Contour next glucose monitor and instructed, script added to ambulatory orders.
Discussed with nurse. Patient to prepare and self inject AC NovoLog with nursing supervision.
Will cont to follow
Diabetes History
- -
Type of Diabetes: 2 requiring insulin
Pre-Admission Diabetes Regimen
02/24/25
06:29
Creatinine 1.4 H
Lab Results
Hemoglobin A1c 12.8 % (4.0-5.6) H 02/19/25 06:46
Insulin Pump Settings
IP Diabetes Regimen
02/23/25 02/23/25 02/23/25
07:51 13:52 17:34
Glucose
POC Glucose 208 H 342 H 330 H
02/23/25 02/24/25
21:08 06:29
Glucose 247 H
POC Glucose 230 H
Meal type: Breakfast
Amount consumed: 100%
Patient Education
[2025-02-24 08:15] VITALS: BP 148/94
[2025-02-24] MEDS: NOVOLOG FLEXPEN 16 UNITS SC ×2 (08:18→12:23)
[2025-02-24] MEDS: NOVOLOG FLEXPEN-LOW RESISTANCE 3 UNITS SC (08:18)
[2025-02-24] MEDS: HEPARIN 5000 UNITS SC ×2 (08:19→21:00)
[2025-02-24] MEDS: PROTONIX 40 MG PO (08:19)
[2025-02-24] MEDS: ZESTRIL 20 MG PO ×2 (08:19→21:00)
[2025-02-24 08:40] LABS: Glucose - Point of Care 251 mg/dl (70-99)
[2025-02-24] MEDS: NOVOLOG FLEXPEN SC (08:41)
--- NOTE | 2025-02-24 08:44 | W.PN.HOSP.TC ---
Today's Communication/Plan
-
See plan
Assessment / Plan
Assessment / Plan
Physical Exam
General: No Apparent Distress
HEENT: Normocephalic
Respiratory: Clear to Auscultation Bilaterally
Cardiac: Regular Rhythm and S1/S2
GI: Soft and Nontender. Positive bowel sounds.
Genito-urinary: Other (left scrotum with redness and swelling)
Musculoskeletal: No Edema
Skin: Warm and Dry
Neuro: AO x 3
Psych: Calm
Assessment/Plan
Mr. Rodney Cabrera is a 55 yo man with hx ex-smoker, HTN, DM presents to the ER with left scrotal swelling and fevers admitted for sepsis 2/2 scrotal cellulitis.
Abdomen/Pelvis CT 02/18/25
IMPRESSION: Stranding soft tissue density involving the visualized superior left hemiscrotum. Reported history of recent injury. This could represent stranding from contusion. Main differential consideration of stranding from inflammation/infection.
Of note, the entire scrotum including the testicles are not fully included on the vzjar-pk-maby of this examination.
There is no evidence for bowel herniation.
Fatty infiltration the liver.
Two 2 mm calcification within the pancreas, compatible with benign dystrophic calcifications. No CT findings to suggest acute pancreatitis.
Mild to moderate atrophy of the left kidney, asymmetric compared to the right.
Bony degenerative changes as described.
Mild to moderate atrophy of the left kidney, asymmetric compared to the right. No gross evidence for significant narrowing of the left renal artery. No other focal abnormality of the kidneys. The visualized pelvicalyceal systems and ureters appear
within normal limits. No abnormality of the urinary bladder.
Scrotal US 02/18/25
IMPRESSION: Normal sonographic appearance of both testes.
Small to moderate-sized right hydrocele. Minimal left hydrocele.
Suggestion of mild left-sided scrotal skin thickening, greater than on the right.
Sepsis secondary to left scrotal cellulitis
-CT with stranding left hemiscrotum; US with minimal left hydrocele; mild left-sided scrotal skin thickening
-lactate WNL
-admitted to med/surg
-Urology consult appreciated
-abx changed from IV Zosyn to IV Vanc/Ceftriaxone on 02/19; patient had persistent leukocytosis and swelling; ID consulted on 02/21 and IV antibiotics changed to Daptomycin
-appreciate ID consult - continue IV Daptomycin. Ertapenem added.
NIVIA
-no hydro or bladder abnormality seen on CT
-s/p IVF with swelling s/p one dose lasix 20mg IV x 1 (not heart failure; iatrogenic swelling)
-renal function WNL now
Essential HTN
-resumed FLOTATION TENDER lisinopril; HCTZ stopped given rising creatinine; start Amlodipine
-Dr. Walter changed Lisinopril to 20mg PO BID (was on 40 mg PO HS) to better have daytime control HTN
NIDDM
-hold FLOTATION TENDER Metformin
-stop Glipizide
-A1c > 12 --> DM COOK VACUUM KETTLE consult appreciated, and patient started on insulin - will DC on insulin, patient has been practicing injections
HLD - Hold Atorvastatin while on Daptomycin.
DVT PPx hep subQ
FULL CODE
Anticipated Discharge: > 48 hours
Subjective/Interval History
-
Date of Service: February 24, 2025
Patient was seen and examined. He reported some discomfort in the scrotal area, but overall feeling better.
Objective Data
-
Labs:
Laboratory Results
02/24/25
06:29
WBC 14.7 H
Hgb 14.3
Hct 42.6
Plt Count 343
Sodium 136
Potassium 4.3
Chloride 101
Carbon Dioxide 28
BUN 22 H
Creatinine 1.4 H
Glucose 247 H
Calcium 9.2
Vital Signs:
Vital Signs
Temp Pulse Resp BP Pulse Ox
98 F 82 18 148/94 98
02/24/25 08:15 02/24/25 08:19 02/24/25 08:15 02/24/25 08:19 02/24/25 08:15
I&O
02/23/25 02/24/25 02/25/25
06:59 06:59 06:59
Intake Total 900 / 900 1680 / 1680
Output Total 1475 / 1475 700 / 700
Balance -575 / -575 980 / 980
[2025-02-24 12:02] LABS: Glucose - Point of Care 396 mg/dl (70-99)
[2025-02-24] MEDS: NOVOLOG FLEXPEN-LOW RESISTANCE 5 UNITS SC (12:22)
--- NOTE | 2025-02-24 14:41 | W.PN.ID1 ---
Date of Service
Date of Service: February 24, 2025
Today's Communication
Continue daptomycin. Add ertapenem. See below�
Assessment / Plan
Left scrotal cellulitis
- Suspect staph or strep as etiology
Leukocytosis
Fever; improved
HTN
DM type II
HLD
Recommendations:
Overall appearance would be consistent with a staph or strep infection (although suspect staph, possibly MRSA)
Continue daptomycin 1000 mg IV every 24 hours.
To date, not significant improvement, though.
Warm compress/K-pad to the area.
Follow white count and temperature curve.
Will hold atorvastatin while patient is on daptomycin.
Will add ertapenem.
Consider repeat CT imaging of the area, and possibly asking Urology to reassess.
����������������������������������������������������������
Chief Complaint
-: Other (Left scrotal cellulitis)
Subjective / Review of Systems
Patient seen and examined. Reports ongoing swelling and induration in the left scrotal area.
Review of Systems: No Fever and No Chills
Vital Signs / Physical Exam
Vital Signs
Vital Signs
Temp Pulse Resp BP Pulse Ox
98 F 82 18 148/94 98
02/24/25 08:15 02/24/25 08:19 02/24/25 08:15 02/24/25 08:19 02/24/25 08:15
Physical Exam
Constitutional: No Acute Distress, Comfortable and Non-toxic
Eyes: Sclera Anicteric
Pulmonary: Non Labored
Gastrointestinal: Non Distended
Genito-Urinary: Other (Ongoing marked induration of the left scrotal area. Moderate tenderness. No fluctuance)
Neurological: Awake and Alert
Psychological: Calm
Objective Data
Lab Data
Lab Results
02/24/25 06:29
02/24/25 06:29
Estimated Creat Clear 77 ml/min 02/24/25 06:29
Lactic Acid Cancelled 02/18/25 12:15
Total Bilirubin 1.6 mg/dl (0.2-1.3) H 02/18/25 08:16
AST 16 U/L (17-59) L 02/18/25 08:16
ALT 17 U/L (0-50) 02/18/25 08:16
Alkaline Phosphatase 116 U/L (38-126) 02/18/25 08:16
Most recent labs reviewed.
Micro Results:
02/18/25 08:42 Blood Culture - Final
Blood/Venous No Growth - Final Report
02/18/25 08:16 Blood Culture - Final
Blood/Venous No Growth - Final Report
Imaging:
02/18/2025 CT abdomen/pelvis: Stranding soft tissue density involving the visualized superior left hemiscrotum.
--- NOTE | 2025-02-24 15:20 | CM ---
Patient continues on IV ABX. Medical staff monitoring for improvement of symptoms. Patient still requiring acute care. Patient physically functioning at baseline level.
Plan: Case management will continue to follow and assist with discharge planning. Will watch for any IV ABX needs.
[2025-02-24] MEDS: INVANZ 60 MG IV (15:25)
[2025-02-24 15:46] VITALS: BP 128/79
[2025-02-24] MEDS: NORVASC 2.5 MG PO (17:27)
[2025-02-24] MEDS: CUBICIN 20 MG IV (17:27)
[2025-02-24 17:44] LABS: Glucose - Point of Care 318 mg/dl (70-99)
[2025-02-24] MEDS: NOVOLOG FLEXPEN 20 UNITS SC (17:51)
[2025-02-24] MEDS: NOVOLOG FLEXPEN-LOW RESISTANCE 4 UNITS SC (17:51)
[2025-02-24 21:19] LABS: Glucose - Point of Care 203 mg/dl (70-99)
[2025-02-24] MEDS: LANTUS 0.26 UNITS SC (21:27)
[2025-02-24 23:31] VITALS: BP 128/77
[2025-02-25] MEDS: TYLENOL 650 MG PO ×2 (01:25→08:35)
[2025-02-25 07:20] VITALS: BP 162/92
[2025-02-25 07:34] LABS: % Basophils 0.9 % (0-2); % Immature Granulocytes 4.6 % (0-0.5); % Lymphocytes 16.2 % (20.5-51.1); % Monocytes 6.4 % (1.7-9.3); % Neutrophils 71.9 % (42.2-75.2); Absolute Basophils 0.2 10^3/uL (0-0.2); Absolute Immature Granulocytes 0.8 10^3/uL (0-0.05); Absolute Lymphocytes 2.8 10^3/uL (1.2-3.4); Absolute Monocytes 1.1 10^3/uL (0.1-0.6); Absolute Neutrophils 12.6 10^3/uL (1.4-6.5); Hematocrit 46.4 % (39.0-52.0); Hemoglobin 15.5 g/dL (13.0-18.0); Mean Corp Hgb Conc. 33.4 g/dL (33.0-37.0); Mean Corpuscular Hgb 28.9 pg (27.0-31.0); Mean Corpuscular Volume 86.4 fL (80.0-94.0); Nucleated Red Blood Cells % 0 % (-); Platelet Count 397 10^3/uL (130-400); Red Blood Cell Count 5.37 10^6/uL (4.70-6.10); White Blood Cell Count 17.5 10^3/uL (4.8-10.8)
[2025-02-25 07:54] LABS: Blood Urea Nitrogen 22 mg/dl (9-20); Calcium 9.4 mg/dl (8.4-10.2); Carbon Dioxide 25 mmol/L (22-30); Chloride 102 mmol/L (98-107); Estimated Creatinine Clearance 83 ml/min; Glucose 217 mg/dl (70-99); Magnesium 2.1 mg/dl (1.6-2.3); Potassium 4.6 mmol/L (3.5-5.1); Sodium 136 mmol/L (135-145); eGFR > 60.00
--- NOTE | 2025-02-25 08:18 | PN.DE.MGMTRT ---
Insulin Management
- -
02/25/2025: Diabetes Management Follow up
Patient admitted 02/18 with scrotal swelling, fever. PMH HTN, diabetes. Prior to admission was taking glipizide 10 mg BID and metformin 1000 mg BID. A1C 12.8%, cr 1.5, eGFR 54.64. Patient states his last A1C was 9 something and doctor suggested
Mandy. Patient admits it was over $1,000 per month and they could not afford it. Patient states he used to test his glucose years ago but has not tested 'in a long time'. Needs a new monitor.
Patient is awake alert and oriented sitting up @ edge of bed, offers no complaints, able to discuss diabetes care.
02/24 Glucose range 203 to 396. Received 26 units lantus @ hs with NovoLog 20 units AC and low corrective.
02/25 Fasting glucose 217 this AM. Will increase AC NovoLog to 24 units, will increase Lantus to 30 units. Cont low corrective with meals.
I demonstrated prep and injection technique and provided printed instructions for pen use. Patient states he is comfortable self injecting insulin.
I provided patient with Nutrition education booklet and 1800 calorie diet and reviewed extensively. Patient verbalized understanding.
Provided Contour next glucose monitor and instructed, script added to ambulatory orders.
Discussed with nurse. Patient to prepare and self inject AC NovoLog with nursing supervision.
Will cont to follow
Diabetes History
- -
Type of Diabetes: 2 requiring insulin
Pre-Admission Diabetes Regimen
02/25/25
07:06
Creatinine 1.3
Lab Results
Hemoglobin A1c 12.8 % (4.0-5.6) H 02/19/25 06:46
Insulin Pump Settings
IP Diabetes Regimen
02/24/25 02/24/25 02/24/25
08:29 12:00 17:42
Glucose
POC Glucose 251 H 396 H 318 H
02/24/25 02/25/25
21:17 07:06
Glucose 217 H
POC Glucose 203 H
Meal type: Lunch
Meal type: Breakfast
Amount consumed: 100%
Amount consumed: 100%
Patient Education
[2025-02-25 08:20] LABS: Glucose - Point of Care 201 mg/dl (70-99)
[2025-02-25] MEDS: PROTONIX 40 MG PO (08:34)
[2025-02-25] MEDS: NORVASC 2.5 MG PO (08:35)
[2025-02-25] MEDS: ZESTRIL 20 MG PO ×2 (08:35→21:13)
[2025-02-25] MEDS: HEPARIN 5000 UNITS SC ×2 (08:35→21:13)
[2025-02-25] MEDS: NOVOLOG FLEXPEN-LOW RESISTANCE 2 UNITS SC ×2 (09:48→18:36)
[2025-02-25] MEDS: NOVOLOG FLEXPEN 20 UNITS SC (09:48)
[2025-02-25 12:02] LABS: Glucose - Point of Care 327 mg/dl (70-99)
[2025-02-25] MEDS: NOVOLOG FLEXPEN-LOW RESISTANCE 4 UNITS SC (12:22)
[2025-02-25 14:06] LABS: Glucose - Point of Care 261 mg/dl (70-99)
--- NOTE | 2025-02-25 14:22 | W.PN.HOSP.TC ---
Today's Communication/Plan
-
Repeat CT Pelvis
Urology re-evaluation since affected area is not improving much, as discussed with ID
Continue antibiotics
Assessment / Plan
Assessment / Plan
Physical Exam
General: No Apparent Distress
HEENT: Normocephalic
Respiratory: Clear to Auscultation Bilaterally
Cardiac: Regular Rhythm and S1/S2
GI: Soft and Nontender. Positive bowel sounds.
Genito-urinary: Other (left scrotum with redness and swelling)
Musculoskeletal: No Edema
Skin: Warm and Dry
Neuro: AO x 3
Psych: Calm
Assessment/Plan
Mr. Rodney Cabrera is a 55 yo man with hx ex-smoker, HTN, DM presents to the ER with left scrotal swelling and fevers admitted for sepsis 2/2 scrotal cellulitis.
Abdomen/Pelvis CT 02/18/25
IMPRESSION: Stranding soft tissue density involving the visualized superior left hemiscrotum. Reported history of recent injury. This could represent stranding from contusion. Main differential consideration of stranding from inflammation/infection.
Of note, the entire scrotum including the testicles are not fully included on the [id number] of this examination.
There is no evidence for bowel herniation.
Fatty infiltration the liver.
Two 2 mm calcification within the pancreas, compatible with benign dystrophic calcifications. No CT findings to suggest acute pancreatitis.
Mild to moderate atrophy of the left kidney, asymmetric compared to the right.
Bony degenerative changes as described.
Mild to moderate atrophy of the left kidney, asymmetric compared to the right. No gross evidence for significant narrowing of the left renal artery. No other focal abnormality of the kidneys. The visualized pelvicalyceal systems and ureters appear
within normal limits. No abnormality of the urinary bladder.
Scrotal US 02/18/25
IMPRESSION: Normal sonographic appearance of both testes.
Small to moderate-sized right hydrocele. Minimal left hydrocele.
Suggestion of mild left-sided scrotal skin thickening, greater than on the right.
Sepsis secondary to left scrotal cellulitis with suspected staph or strep infection (although suspect staph, possibly MRSA)
-CT with stranding left hemiscrotum; US with minimal left hydrocele; mild left-sided scrotal skin thickening
-Urology consult appreciated
-abx changed from IV Zosyn to IV Vanc/Ceftriaxone on 02/19; patient had persistent leukocytosis and swelling; ID consulted on 02/21 and IV antibiotics changed to Daptomycin
-appreciate ID consult - continue IV Daptomycin. Ertapenem added on 02/24/25.
-Discussed with Dr. Rodriguez on 02/25/25 -- given patient's scrotal infection is not improving much: recheck CT Pelvis with IV contrast, requested urology re-evaluation
NIVIA
-no hydro or bladder abnormality seen on CT
-s/p IVF with swelling s/p one dose lasix 20mg IV x 1 (not heart failure; iatrogenic swelling)
-HCTZ stopped
Essential HTN
-resumed SILICATOR lisinopril; HCTZ stopped given rising creatinine; started Amlodipine 02/24/25
-Dr. Walter changed Lisinopril to 20mg PO BID (was on 40 mg PO HS) to better have daytime control HTN
NIDDM
-hold SILICATOR Metformin
-stop Glipizide
-A1c > 12 --> DM BUSINESS INFORMATION ANALYST consult appreciated, and patient started on insulin - will DC on insulin, patient has been practicing injections
HLD - Hold Atorvastatin while on Daptomycin.
DVT Prophylaxis: Heparin SUBQ
Code Status: FULL CODE
Anticipated Discharge: > 48 hours
Subjective/Interval History
-
Date of Service: February 25, 2025
Patient was seen and examined. He reported that his scrotum infection has not been improving much.
Objective Data
-
Labs:
Laboratory Results
02/25/25
07:06
WBC 17.5 H
Hgb 15.5
Hct 46.4
Plt Count 397
Sodium 136
Potassium 4.6
Chloride 102
Carbon Dioxide 25
BUN 22 H
Creatinine 1.3
Glucose 217 H
Calcium 9.4
Vital Signs:
Vital Signs
Temp Pulse Resp BP Pulse Ox
97.9 F 92 16 162/92 98
02/25/25 07:20 02/25/25 08:35 02/25/25 07:20 02/25/25 08:35 02/25/25 07:20
I&O
02/24/25 02/25/25 02/26/25
06:59 06:59 06:59
Intake Total 1680 / 1680 1200 / 1200
Output Total 700 / 700 150 / 150
Balance 980 / 980 1050 / 1050
--- NOTE | 2025-02-25 14:25 | W.PN.ID1 ---
Date of Service
Date of Service: February 25, 2025
Today's Communication
Continue antibiotic. See below
Assessment / Plan
Left scrotal cellulitis
- Suspect staph or strep as etiology
Leukocytosis
- increasing
Fever; improved
HTN
DM type II
HLD
Recommendations:
Overall appearance would be consistent with a staph or strep infection (although suspect staph, possibly MRSA)
Continue daptomycin 1000 mg IV every 24 hours.
To date, not significant improvement, though.
Ertapenem added yesterday.
Warm compress/K-pad to the area.
Follow white count and temperature curve.
Will hold atorvastatin while patient is on daptomycin.
Consider repeat CT imaging of the area, and possibly asking Urology to reassess.
����������������������������������������������������������
Chief Complaint
-: Other (Left scrotal cellulitis)
Subjective / Review of Systems
Patient seen and examined. Reports ongoing left scrotal discomfort.
Review of Systems: No Fever and No Chills
Vital Signs / Physical Exam
Vital Signs
Vital Signs
Temp Pulse Resp BP Pulse Ox
97.9 F 92 16 162/92 98
02/25/25 07:20 02/25/25 08:35 02/25/25 07:20 02/25/25 08:35 02/25/25 07:20
Physical Exam
Constitutional: No Acute Distress, Comfortable and Non-toxic
Eyes: Sclera Anicteric
Pulmonary: Non Labored
Gastrointestinal: Non Distended
Genito-Urinary: Other (Ongoing marked induration of the left scrotal area. Moderate tenderness. No fluctuance palpated.)
Extremities: Negative Edema or Cyanosis
Neurological: Awake and Alert
Psychological: Calm
Objective Data
Lab Data
Lab Results
02/25/25 07:06
02/25/25 07:06
Estimated Creat Clear 83 ml/min 02/25/25 07:06
Lactic Acid Cancelled 02/18/25 12:15
Total Bilirubin 1.6 mg/dl (0.2-1.3) H 02/18/25 08:16
AST 16 U/L (17-59) L 02/18/25 08:16
ALT 17 U/L (0-50) 02/18/25 08:16
Alkaline Phosphatase 116 U/L (38-126) 02/18/25 08:16
Most recent labs reviewed.
Micro Results:
02/18/25 08:42 Blood Culture - Final
Blood/Venous No Growth - Final Report
02/18/25 08:16 Blood Culture - Final
Blood/Venous No Growth - Final Report
Imaging:
02/18/2025 CT abdomen/pelvis: Stranding soft tissue density involving the visualized superior left hemiscrotum.
[2025-02-25] MEDS: NOVOLOG FLEXPEN SC (14:41)
[2025-02-25] MEDS: NOVOLOG FLEXPEN 24 UNITS SC ×2 (14:49→18:36)
[2025-02-25 15:20] VITALS: BP 137/82
[2025-02-25] MEDS: INVANZ 60 MG IV (17:11)
[2025-02-25 18:09] LABS: Glucose - Point of Care 244 mg/dl (70-99)
[2025-02-25] MEDS: CUBICIN 20 MG IV (18:23)
--- NOTE | 2025-02-25 20:25 | W.PN.URO.CBU ---
Today's Communication / Plan
-
situation d/w pt
Rec: continued abx
Assessment / Plan
-
persistent left hemiscrotal cellulitis w/o abscess development [yet]
Diagnosis
-
Date of Service: February 25, 2025
-
Patient Diagnosis:
Left scrotal cellulitis
Subjective
-
persistent pain
Objective
-
Vital Signs
Temp Pulse Resp BP Pulse Ox
97.8 F 107 18 137/82 97
02/25/25 15:20 02/25/25 15:20 02/25/25 15:20 02/25/25 15:20 02/25/25 15:20
Intake and Output
02/24/25 02/25/25 02/26/25
06:59 06:59 06:59
Intake Total 1680 / 1680 1200 / 1200
Output Total 700 / 700 150 / 150
Balance 980 / 980 1050 / 1050
Intake:
Oral fluids 1680 / 1680 1200 / 1200
Output:
Urine, Voided 700 / 700 150 / 150
Other:
Number of approximated SMALL 1
amounts of urine
Number of approximated MODERATE 3
amounts of urine
Laboratory Results
02/25/25 07:06
02/25/25 07:06
CT: no abscess detected
Physical Exam
-
General - well developed, well nourished, no acute distress
Abdomen - soft, non-tender, positive bowel sounds, no distention
Genitalia -Left hemiscrotum is enlarged and indurated; tissue is erythematous without evidence of necrosis or abscess
[2025-02-25 21:17] LABS: Glucose - Point of Care 149 mg/dl (70-99)
[2025-02-25] MEDS: LANTUS 0.3 UNITS SC (21:19)
[2025-02-25 23:18] VITALS: BP 127/72
[2025-02-26] MEDS: TYLENOL 650 MG PO ×3 (01:10→15:45)
--- NOTE | 2025-02-26 04:24 | DOWNTIME ---
Addendum entered by Batsheva Story RN 02/26/25 14:22:
Correction: Downtime was 02/26/2025 from 0100 to 02/26/2025 at 0415
Original Note:
There was a [employer] Downtime on 02/25/2025 from 0100 to 02/26/2025 at 0415. Downtime documentation of patient's care, including medication administrations, has been reconciled in the electronic record per guidelines. Refer to the
patient's paper chart under the miscellaneous tab to see printed paper medication records and downtime forms.
[2025-02-26 07:27] LABS: Glucose - Point of Care 157 mg/dl (70-99)
[2025-02-26 07:37] VITALS: BP 149/89
--- NOTE | 2025-02-26 07:37 | PN.DE.MGMTRT ---
Insulin Management
- -
02/26/2025: Diabetes Management Follow up
Patient admitted 02/18 with scrotal swelling, fever - scrotal cellulitis. PMH HTN, diabetes. Prior to admission was taking glipizide 10 mg BID and metformin 1000 mg BID. A1C 12.8%, cr 1.5, eGFR 54.64. Patient states his last A1C was 9 something
and doctor suggested Mandy. Patient admits it was over $1,000 per month and they could not afford it. Patient states he used to test his glucose years ago but has not tested 'in a long time'. Needs a new monitor.
Patient is awake alert and oriented sitting up @ edge of bed, offers no complaints, able to discuss diabetes care.
02/25 Glucose range 217 to 149. Received increased dose of Lantus 30 units @ hs with increased dose of NovoLog 24 units AC and low corrective.
02/26 Fasting glucose 157 this AM. Received 24 units novolog with breakfast @ 10 AM, 12 noon glucose 331. Will increase AC NovoLog 26 units, with Lantus to 30 units @ HS. Cont low corrective with meals.
I demonstrated prep and injection technique and provided printed instructions for pen use. Patient states he is comfortable self injecting insulin.
I provided patient with Nutrition education booklet and 1800 calorie diet and reviewed extensively. Patient verbalized understanding.
Provided Contour next glucose monitor and instructed, script added to ambulatory orders.
Discussed with nurse. Patient to prepare and self inject AC NovoLog with nursing supervision.
Will cont to follow
Diabetes History
- -
Type of Diabetes: 2 requiring insulin
Pre-Admission Diabetes Regimen
02/25/25
07:06
Creatinine 1.3
Lab Results
Hemoglobin A1c 12.8 % (4.0-5.6) H 02/19/25 06:46
Insulin Pump Settings
IP Diabetes Regimen
02/25/25 02/25/25 02/25/25
07:06 08:19 12:01
Glucose 217 H
POC Glucose 201 H 327 H
02/25/25 02/25/25 02/25/25
14:04 18:08 21:16
Glucose
POC Glucose 261 H 244 H 149 H
02/26/25
07:26
Glucose
POC Glucose 157 H
Patient Education
[2025-02-26 07:57] LABS: % Basophils 0.6 % (0-2); % Immature Granulocytes 3.8 % (0-0.5); % Lymphocytes 9.8 % (20.5-51.1); % Monocytes 5.4 % (1.7-9.3); % Neutrophils 80.4 % (42.2-75.2); Absolute Basophils 0.1 10^3/uL (0-0.2); Absolute Immature Granulocytes 0.5 10^3/uL (0-0.05); Absolute Lymphocytes 1.3 10^3/uL (1.2-3.4); Absolute Monocytes 0.7 10^3/uL (0.1-0.6); Absolute Neutrophils 10.7 10^3/uL (1.4-6.5); Hematocrit 45.1 % (39.0-52.0); Hemoglobin 14.9 g/dL (13.0-18.0); Mean Corpuscular Hgb 28.3 pg (27.0-31.0); Mean Corpuscular Volume 85.7 fL (80.0-94.0); Mean Platelet Volume 9.2 fL (7.4-10.4); Nucleated Red Blood Cells % 0 % (-); Platelet Count 346 10^3/uL (130-400); Red Blood Cell Count 5.26 10^6/uL (4.70-6.10); Red Cell Dist. Width 12.9 % (11.5-14.5); White Blood Cell Count 13.3 10^3/uL (4.8-10.8)
[2025-02-26 08:19] LABS: Glucose - Point of Care 147 mg/dl (70-99)
[2025-02-26 08:35] LABS: Blood Urea Nitrogen 22 mg/dl (9-20); Carbon Dioxide 24 mmol/L (22-30); Chloride 104 mmol/L (98-107); Estimated Creatinine Clearance 77 ml/min; Glucose 152 mg/dl (70-99); Potassium 4.5 mmol/L (3.5-5.1); Sodium 136 mmol/L (135-145); eGFR 59.36
[2025-02-26] MEDS: PROTONIX 40 MG PO (09:10)
[2025-02-26] MEDS: HEPARIN 5000 UNITS SC ×2 (09:10→19:34)
[2025-02-26] MEDS: NORVASC 2.5 MG PO (09:10)
[2025-02-26] MEDS: ZESTRIL 20 MG PO ×2 (09:10→19:35)
[2025-02-26] MEDS: NOVOLOG FLEXPEN-LOW RESISTANCE 1 UNITS SC ×2 (10:00→17:58)
[2025-02-26] MEDS: NOVOLOG FLEXPEN 24 UNITS SC (10:00)
--- NOTE | 2025-02-26 11:55 | W.PN.ID1 ---
Date of Service
Date of Service: February 26, 2025
Today's Communication
Continue abx.
Assessment / Plan
Left scrotal cellulitis
- Suspect staph or strep as etiology
Leukocytosis
- increasing
Fever; improved
HTN
DM type II
HLD
Recommendations:
Overall appearance would be consistent with a staph or strep infection (although suspect staph, possibly MRSA)
Little improvement despite 7 days anti-staphylococcal therapy.
Continue daptomycin 1000 mg IV every 24 hours (d#6)
Continue Ertapenem (d#3)
Continue warm compress/K-pad to the area.
Follow white count and temperature curve.
Holding atorvastatin while patient is on daptomycin.
����������������������������������������������������������
Chief Complaint
-: Other (Left scrotal cellulitis)
Subjective / Review of Systems
Patient seen and examined. Continues to have left scrotal swelling and discomfort.
Review of Systems: No Fever and No Chills
Vital Signs / Physical Exam
Vital Signs
Vital Signs
Temp Pulse Resp BP Pulse Ox
98.1 F 97 20 149/89 94
02/26/25 07:37 02/26/25 07:37 02/26/25 07:37 02/26/25 07:37 02/26/25 07:37
Physical Exam
Constitutional: No Acute Distress, Comfortable and Non-toxic
Eyes: Sclera Anicteric
Pulmonary: Non Labored
Gastrointestinal: Non Distended
Genito-Urinary: Other (Ongoing marked induration of the left scrotal area. Moderate tenderness. No fluctuance palpated. Erythema persists.)
Extremities: Negative Edema or Cyanosis
Neurological: Awake and Alert
Psychological: Calm
Objective Data
Lab Data
Lab Results
02/26/25 07:03
02/26/25 07:03
Estimated Creat Clear 77 ml/min 02/26/25 07:03
Lactic Acid Cancelled 02/18/25 12:15
Total Bilirubin 1.6 mg/dl (0.2-1.3) H 02/18/25 08:16
AST 16 U/L (17-59) L 02/18/25 08:16
ALT 17 U/L (0-50) 02/18/25 08:16
Alkaline Phosphatase 116 U/L (38-126) 02/18/25 08:16
Most recent labs reviewed.
Micro Results:
02/18/25 08:42 Blood Culture - Final
Blood/Venous No Growth - Final Report
02/18/25 08:16 Blood Culture - Final
Blood/Venous No Growth - Final Report
Imaging:
02/25/2025 CT pelvis with IV contrast: Swelling of the scrotum, particularly on the left, including scrotal wall and some accompanying stranding and edema. Small volume left sided hydrocele. No findings on CT to confirm intrascrotal air or
air-fluid level. No focal fluid collection seen. Please see full dictation for additional detail.
02/18/2025 CT abdomen/pelvis: Stranding soft tissue density involving the visualized superior left hemiscrotum.
CT Scan: Image Reviewed and Report Reviewed
[2025-02-26 11:57] LABS: Glucose - Point of Care 331 mg/dl (70-99)
--- NOTE | 2025-02-26 13:43 | PN.CDI ---
CDI
- -
CDI:
Physician Documentation Request
Admit Date: 02/18/25 12:21
Dear Doctor Nadine,
Clinical Indicators:
Patient admitted with Sepsis due to left scrotal cellulitis.
Cr/GFR trend:
02/18/25 02/19/25 02/20/25
08:16 06:46 10:38
Creatinine 1.6 H 1.5 H 1.3
eGFR 50.57 54.64 > 60.00
02/22/25 02/24/25 02/25/25
04:52 06:29 07:06
Creatinine 1.2 1.4 H 1.3
eGFR > 60.00 59.36 > 60.00
Please clarify which of the following most accurately represents the patient's renal status:
CKD (please specify stage)
Elevated creatinine only
NIVIA (documentation complete)
Other, please specify
Criteria for NIVIA*
1 Increase in serum creatinine by > or = to 0.3 mg/dL (> or = to 26.5 micromol/L) within 48 hours, OR
2 Increase in serum creatinine to > or = to 1.5 times baseline, which is known or presumed to have occurred within 7 days, OR
3 Urine volume < 0.5 nL/kg/hour for six hours
Stages of Chronic Kidney Disease*
Level Description GFR
G1 Normal or High >90
G2 Mildly decreased 60-89
G3a Mildly to moderately decreased 45-59
G3b Moderately to severely decreased 30-44
G4 Severely decreased 15-29
G5 Kidney failure <15
Use of terms such as suspected, likely, concern for, or probable (associated with a specific diagnosis that is being evaluated, monitored, or treated as if it exists) are acceptable and can be coded in the inpatient setting, when documented at the
time of discharge.
Thank you,
YAHAIRA Ingram RN
CDI Specialist
available via tiger text
Please use your independent medical judgment in providing your response.
*Source: Kidney Disease: Improving Global Outcomes (KDIGO) 2012
[2025-02-26 14:13] LABS: Glucose - Point of Care 243 mg/dl (70-99)
[2025-02-26] MEDS: NOVOLOG FLEXPEN SC (14:14)
[2025-02-26] MEDS: NOVOLOG FLEXPEN-LOW RESISTANCE 2 UNITS SC (14:17)
[2025-02-26] MEDS: NOVOLOG FLEXPEN 26 UNITS SC ×2 (14:24→17:59)
--- NOTE | 2025-02-26 15:04 | W.PN.HOSP.TC ---
Today's Communication/Plan
-
Continue antibiotics
See plan
Appreciate ID and urology
Assessment / Plan
Assessment / Plan
Physical Exam
General: No Apparent Distress
HEENT: Normocephalic
Respiratory: Clear to Auscultation Bilaterally
Cardiac: Regular Rhythm and S1/S2
GI: Soft and Nontender. Positive bowel sounds.
Genito-urinary: Other (left scrotum with redness and swelling)
Musculoskeletal: No Edema
Skin: Warm and Dry
Neuro: AO x 3
Psych: Calm
Assessment/Plan
Mr. Rodney Cabrera is a 55 yo man with hx ex-smoker, HTN, DM presents to the ER with left scrotal swelling and fevers admitted for sepsis 2/2 scrotal cellulitis.
Abdomen/Pelvis CT 02/18/25
IMPRESSION: Stranding soft tissue density involving the visualized superior left hemiscrotum. Reported history of recent injury. This could represent stranding from contusion. Main differential consideration of stranding from inflammation/infection.
Of note, the entire scrotum including the testicles are not fully included on the [id number] of this examination.
There is no evidence for bowel herniation.
Fatty infiltration the liver.
Two 2 mm calcification within the pancreas, compatible with benign dystrophic calcifications. No CT findings to suggest acute pancreatitis.
Mild to moderate atrophy of the left kidney, asymmetric compared to the right.
Bony degenerative changes as described.
Mild to moderate atrophy of the left kidney, asymmetric compared to the right. No gross evidence for significant narrowing of the left renal artery. No other focal abnormality of the kidneys. The visualized pelvicalyceal systems and ureters appear
within normal limits. No abnormality of the urinary bladder.
Scrotal US 02/18/25
IMPRESSION: Normal sonographic appearance of both testes.
Small to moderate-sized right hydrocele. Minimal left hydrocele.
Suggestion of mild left-sided scrotal skin thickening, greater than on the right.
Sepsis secondary to left scrotal cellulitis with suspected staph or strep infection (although suspect staph, possibly MRSA)
-CT with stranding left hemiscrotum; US with minimal left hydrocele; mild left-sided scrotal skin thickening
-Urology consult appreciated
-abx changed from IV Zosyn to IV Vanc/Ceftriaxone on 02/19; patient had persistent leukocytosis and swelling; ID consulted on 02/21 and IV antibiotics changed to Daptomycin
-appreciate ID consult - continue IV Daptomycin. Ertapenem added on 02/24/25.
-Discussed with Dr. Rodriguez on 02/25/25 -- given patient's scrotal infection is not improving much: recheck CT Pelvis with IV contrast, requested urology re-evaluation
Concern for Possible NIVIA
-no hydro or bladder abnormality seen on CT
-s/p IVF with swelling s/p one dose lasix 20mg IV x 1 (not heart failure; iatrogenic swelling)
-HCTZ stopped
Essential Hypertension
-resumed SPACE AND MISSILE OPERATIONS lisinopril; HCTZ stopped given rising creatinine; started Amlodipine 02/24/25
-Dr. Watler changed Lisinopril to 20mg PO BID (was on 40 mg PO HS) to better have daytime control HTN
NIDDM
-hold SPACE AND MISSILE OPERATIONS Metformin
-stop Glipizide
-A1c > 12 --> DM PERSONAL INJURY SPECIALIST consult appreciated, and patient started on insulin - will DC on insulin, patient has been practicing injections
HLD - Hold Atorvastatin while on Daptomycin.
DVT Prophylaxis: Heparin SUBQ
Code Status: FULL CODE
Anticipated Discharge: > 48 hours
Subjective/Interval History
-
Date of Service: February 26, 2025
Patient was seen and examined. He reported that his scrotal symptoms haven't really improved. He denied any fever, chills or any other new symptoms.
Objective Data
-
Labs:
Laboratory Results
02/26/25
07:03
WBC 13.3 H
Hgb 14.9
Hct 45.1
Plt Count 346
Sodium 136
Potassium 4.5
Chloride 104
Carbon Dioxide 24
BUN 22 H
Creatinine 1.4 H
Glucose 152 H
Calcium 9.0
Vital Signs:
Vital Signs
Temp Pulse Resp BP Pulse Ox
98.1 F 97 20 149/89 94
02/26/25 07:37 02/26/25 07:37 02/26/25 07:37 02/26/25 07:37 02/26/25 13:01
I&O
02/25/25 02/26/25 02/27/25
06:59 06:59 06:59
Intake Total 1200 / 1200 480 / 480 480 / 480
Output Total 150 / 150 700 / 700
Balance 1050 / 1050 -220 / -220 480 / 480
[2025-02-26 15:45] VITALS: BP 129/82
[2025-02-26] MEDS: INVANZ 60 MG IV (15:45)
--- NOTE | 2025-02-26 17:11 | W.PN.URO.CBU ---
Today's Communication / Plan
-
OR tomorrow
Assessment / Plan
-
55M with scrotal cellulitis poorly responsive to IV antibiotics
Negative repeat imaging multiple times over the past week
Exam today with a distinct region of soft fluctuance at L lateral aspect of scrotum consistent with developing abscess
Follow up repeat scrotal US results
NPO at [facility]
OR tomorrow for scrotal exploration, incision and drainage of scrotal abscess
Diagnosis
-
Date of Service: February 26, 2025
-
Patient Diagnosis:
Left scrotal cellulitis
Subjective
-
no improvement over the past week on antibiotics
Urology consulted again for re-eval
Objective
-
Vital Signs
Temp Pulse Resp BP Pulse Ox
98 F 105 22 129/82 100
02/26/25 15:45 02/26/25 15:45 02/26/25 15:45 02/26/25 15:45 02/26/25 15:45
Intake and Output
02/25/25 02/26/25 02/27/25
06:59 06:59 06:59
Intake Total 1200 / 1200 480 / 480 480 / 480
Output Total 150 / 150 700 / 700
Balance 1050 / 1050 -220 / -220 480 / 480
Intake:
Oral fluids 1200 / 1200 480 / 480 480 / 480
Output:
Urine, Voided 150 / 150 700 / 700
Other:
Number of approximated MODERATE 1
amounts of urine
Laboratory Results
02/26/25 07:03
02/26/25 07:03
Physical Exam
-
General - well developed, well nourished, no acute distress
Chest - clear bilaterally
Abdomen - soft, non-tender
Scrotal skin indurated diffusely with a region of soft fluctuance at L lateral aspect of scrotum consistent with developing abscess
--- NOTE | 2025-02-26 17:25 | CM ---
Per activity documentation, patient functioning at Independent level. Will watch for needs at discharge. Patient should be able to return home. Will determine if there are any needs prior to discharge in regard to medications or anything else for
successful transfer to home.
Plan: Case management will continue to follow and assist with discharge planning. Home when cleared. Will watch for needs.
[2025-02-26 17:49] LABS: Glucose - Point of Care 175 mg/dl (70-99)
[2025-02-26] MEDS: CUBICIN 20 MG IV (17:58)
[2025-02-26 21:23] LABS: Glucose - Point of Care 148 mg/dl (70-99)
[2025-02-26] MEDS: 0.45%NACL 1000 IV (21:43)
[2025-02-26] MEDS: LANTUS 0.3 UNITS SC (21:43)
[2025-02-26 23:40] VITALS: BP 121/75
[2025-02-27] VITALS (12 sets, daily range): BP systolic 123–171; BP diastolic 72–104
[2025-02-27] MEDS: TYLENOL 650 MG PO ×2 (05:22→23:47)
[2025-02-27 05:28] LABS: Glucose - Point of Care 120 mg/dl (70-99)
[2025-02-27] MEDS: NOVOLOG FLEXPEN-LOW RESISTANCE SC (05:33)
[2025-02-27] MEDS: NOVOLOG FLEXPEN SC ×2 (06:49→11:10)
--- NOTE | 2025-02-27 08:22 | PN.DE.MGMTRT ---
Insulin Management
- -
02/27/2025: Diabetes Management Follow up
Patient admitted 02/18 with scrotal swelling, fever - scrotal cellulitis. PMH HTN, diabetes. Prior to admission was taking glipizide 10 mg BID and metformin 1000 mg BID. A1C 12.8%, cr 1.5, eGFR 54.64. Patient states his last A1C was 9 something
and doctor suggested Mandy. Patient admits it was over $1,000 per month and they could not afford it. Patient states he used to test his glucose years ago but has not tested 'in a long time'. Needs a new monitor.
Patient is awake alert and oriented sitting up @ edge of bed, offers no complaints, able to discuss diabetes care.
02/26 Glucose range 148 to 331. Received increased dose of Lantus 30 units @ hs with increased dose of NovoLog 26 units AC and low corrective.
02/27 Fasting glucose 120 this AM. Patient NPO for OR today. Will resume current regimen s/p OR,
I demonstrated prep and injection technique and provided printed instructions for pen use. Patient states he is comfortable self injecting insulin.
I provided patient with Nutrition education booklet and 1800 calorie diet and reviewed extensively. Patient verbalized understanding.
Provided Contour next glucose monitor and instructed, script added to ambulatory orders.
Discussed with nurse. Patient to prepare and self inject AC NovoLog with nursing supervision.
Will cont to follow
Diabetes History
- -
Type of Diabetes: 2 requiring insulin
Pre-Admission Diabetes Regimen
02/26/25
07:03
Creatinine 1.4 H
Lab Results
Hemoglobin A1c 12.8 % (4.0-5.6) H 02/19/25 06:46
Insulin Pump Settings
IP Diabetes Regimen
02/26/25 02/26/25 02/26/25
07:03 11:56 14:11
Glucose 152 H
POC Glucose 331 H 243 H
02/26/25 02/26/25 02/27/25
17:48 21:22 05:26
Glucose
POC Glucose 175 H 148 H 120 H
Meal type: Breakfast
Meal type: Dinner
Meal type: Breakfast
Amount consumed: 100%
Amount consumed: 100%
Patient Education
[2025-02-27] MEDS: HEPARIN 5000 UNITS SC (08:31)
[2025-02-27] MEDS: ZESTRIL 20 MG PO ×2 (08:32→19:54)
[2025-02-27] MEDS: NORVASC 2.5 MG PO (08:32)
[2025-02-27] MEDS: PROTONIX 40 MG PO (08:32)
[2025-02-27 08:48] LABS: Blood Urea Nitrogen 23 mg/dl (9-20); Calcium 9.2 mg/dl (8.4-10.2); Carbon Dioxide 23 mmol/L (22-30); Chloride 106 mmol/L (98-107); Estimated Creatinine Clearance 77 ml/min; Glucose 164 mg/dl (70-99); Potassium 4.4 mmol/L (3.5-5.1); Sodium 136 mmol/L (135-145); eGFR 59.36
[2025-02-27 09:07] LABS: % Basophils 0.7 % (0-2); % Eosinophils 1.2 % (0-6); % Immature Granulocytes 2.5 % (0-0.5); % Lymphocytes 9.9 % (20.5-51.1); % Monocytes 4.9 % (1.7-9.3); % Neutrophils 80.8 % (42.2-75.2); Absolute Basophils 0.1 10^3/uL (0-0.2); Absolute Eosinophils 0.2 10^3/uL (0-0.7); Absolute Immature Granulocytes 0.4 10^3/uL (0-0.05); Absolute Lymphocytes 1.4 10^3/uL (1.2-3.4); Absolute Monocytes 0.7 10^3/uL (0.1-0.6); Absolute Neutrophils 11.8 10^3/uL (1.4-6.5); Hematocrit 43.3 % (39.0-52.0); Hemoglobin 14.1 g/dL (13.0-18.0); Mean Corp Hgb Conc. 32.6 g/dL (33.0-37.0); Mean Corpuscular Hgb 28.5 pg (27.0-31.0); Mean Corpuscular Volume 87.7 fL (80.0-94.0); Mean Platelet Volume 9.4 fL (7.4-10.4); Nucleated Red Blood Cells % 0 % (-); Platelet Count 381 10^3/uL (130-400); Red Blood Cell Count 4.94 10^6/uL (4.70-6.10); Red Cell Dist. Width 13.1 % (11.5-14.5); White Blood Cell Count 14.6 10^3/uL (4.8-10.8)
--- NOTE | 2025-02-27 09:36 | W.PN.URO.CBU ---
Today's Communication / Plan
-
OR for drainage of scrotal abscess
Assessment / Plan
-
55M with scrotal cellulitis poorly responsive to IV antibiotics
Negative repeat imaging multiple times over the past week
Exam 02/26 he has developed distinct region of soft fluctuance at L lateral aspect of scrotum consistent with developing abscess
NPO
OR today for scrotal exploration, incision and drainage of scrotal abscess
Diagnosis
-
Date of Service: February 27, 2025
-
Patient Diagnosis:
Left scrotal cellulitis
Scrotal abscess
Subjective
-
pain stable, controlled
No new sx
Objective
-
Vital Signs
Temp Pulse Resp BP Pulse Ox
97.9 F 87 22 129/75 97
02/27/25 07:40 02/27/25 08:32 02/27/25 07:40 02/27/25 08:32 02/27/25 07:40
Intake and Output
02/26/25 02/27/25 02/28/25
06:59 06:59 06:59
Intake Total 480 / 480 960 / 960
Output Total 700 / 700
Balance -220 / -220 960 / 960
Intake:
Oral fluids 480 / 480 960 / 960
Output:
Urine, Voided 700 / 700
Other:
Number of approximated MODERATE 3
amounts of urine
Laboratory Results
02/27/25 07:40
02/27/25 07:40
Physical Exam
-
General - well developed, well nourished, no acute distress
Chest - clear bilaterally
Abdomen - soft, non-tender
Scrotal induration with fluctuant region at L lateral aspect
[2025-02-27 11:44] LABS: Glucose - Point of Care 164 mg/dl (70-99)
[2025-02-27] MEDS: NOVOLOG FLEXPEN-LOW RESISTANCE 1 UNITS SC (11:47)
--- NOTE | 2025-02-27 13:31 | W.IMMPOSTOP ---
Addendum entered and electronically signed by Hector Roman Jr., MD 02/27/25 15:35:
will hold subq heparin for 48hrs due to incision/bleeding risk
Original Note:
Surgical Immed Post Op Note
-
Primary Surgeon:
sherwin
Assisting Surgeon:
ruenes
Pre-op Diagnosis:
scrotal abscess
Post-op Diagnosis:
same
Procedure Performed:
scrotal abscess drainage/exploration
Anesthesia Type:
gen
Specimen / Cultures:
wound cx
Estimated Blood Loss:
20cc
Complications:
none
Operative Findings:
Incision and drainage of left side of scrotum revealed large pus filled cavity
necrotic tissue removed
washed out and packed
cx's taken
will need wound care and outpt wound care center consult/VN
while inpatient daily dressing changes until wound stability/infx control ensured
[2025-02-27 13:46] LABS: Glucose - Point of Care 164 mg/dl (70-99)
[2025-02-27] MEDS: FLOMAX 0.4 MG PO (15:16)
[2025-02-27] MEDS: INVANZ 60 MG IV (16:03)
--- NOTE | 2025-02-27 16:53 | W.PN.HOSP.TC ---
Today's Communication/Plan
-
Scrotal drainage and exploration today with infected area noted
Follow cultures from surgery today
Continue antibiotics
Assessment / Plan
Assessment / Plan
Physical Exam
General: No Apparent Distress
HEENT: Normocephalic
Respiratory: Clear to Auscultation Bilaterally
Cardiac: Regular Rhythm and S1/S2
GI: Soft and Nontender. Positive bowel sounds.
Genito-urinary: Other (left scrotum with redness and swelling and induration)
Musculoskeletal: No Edema
Skin: Warm and Dry
Neuro: AO x 3
Psych: Calm
Assessment/Plan
Mr. Rodney Cabrera is a 55 yo man with hx ex-smoker, HTN, DM presents to the ER with left scrotal swelling and fevers admitted for sepsis 2/2 scrotal cellulitis.
Abdomen/Pelvis CT 02/18/25
IMPRESSION: Stranding soft tissue density involving the visualized superior left hemiscrotum. Reported history of recent injury. This could represent stranding from contusion. Main differential consideration of stranding from inflammation/infection.
Of note, the entire scrotum including the testicles are not fully included on the [id number] of this examination.
There is no evidence for bowel herniation.
Fatty infiltration the liver.
Two 2 mm calcification within the pancreas, compatible with benign dystrophic calcifications. No CT findings to suggest acute pancreatitis.
Mild to moderate atrophy of the left kidney, asymmetric compared to the right.
Bony degenerative changes as described.
Mild to moderate atrophy of the left kidney, asymmetric compared to the right. No gross evidence for significant narrowing of the left renal artery. No other focal abnormality of the kidneys. The visualized pelvicalyceal systems and ureters appear
within normal limits. No abnormality of the urinary bladder.
Scrotal US 02/18/25
IMPRESSION: Normal sonographic appearance of both testes.
Small to moderate-sized right hydrocele. Minimal left hydrocele.
Suggestion of mild left-sided scrotal skin thickening, greater than on the right.
Sepsis secondary to left scrotal cellulitis with suspected staph or strep infection (although suspect staph, possibly MRSA)
Scrotal abscess status post drainage/exploration (found to have large pus filled cavity and necrotic tissue) on 02/27/25
-CT with stranding left hemiscrotum; US with minimal left hydrocele; mild left-sided scrotal skin thickening
-Urology consult appreciated
-abx changed from IV Zosyn to IV Vanc/Ceftriaxone on 02/19; patient had persistent leukocytosis and swelling; ID consulted on 02/21 and IV antibiotics changed to Daptomycin
-appreciate ID consult - continue IV Daptomycin. Ertapenem added on 02/24/25.
-Follow cultures from OR (OR was on 02/27/25)
-Post-op (drainage/exploration was on 02/27/25): will need wound care and outpatient wound care center consult/VN and while inpatient, daily dressing changes until wound stability/infection control ensured
Concern for Possible NIVIA
-no hydro or bladder abnormality seen on CT
-s/p IVF with swelling s/p one dose lasix 20mg IV x 1 (not heart failure; iatrogenic swelling)
-HCTZ stopped
Essential Hypertension
-resumed OFFICE MESSENGER lisinopril; HCTZ stopped given rising creatinine; started Amlodipine 02/24/25
-Dr. Walter changed Lisinopril to 20mg PO BID (was on 40 mg PO HS) to better have daytime control HTN
NIDDM
-hold OFFICE MESSENGER Metformin
-stop Glipizide
-A1c > 12 --> DM DIRECTOR OF RESPIRATORY THERAPY consult appreciated, and patient started on insulin - will DC on insulin, patient has been practicing injections
HLD - Hold Atorvastatin while on Daptomycin.
DVT Prophylaxis: HOLD subcutaneous heparin for 48 hrs (through March 01, 2025 afternoon) due to incision/bleeding risk
Code Status: FULL CODE
Anticipated Discharge: > 48 hours
Subjective/Interval History
-
Date of Service: February 27, 2025
Patient was seen and examined. He reported his scrotal symptoms are about the same. He denied any other symptoms or complaints.
Objective Data
-
Labs:
Laboratory Results
02/27/25
07:40
WBC 14.6 H
Hgb 14.1
Hct 43.3
Plt Count 381
Sodium 136
Potassium 4.4
Chloride 106
Carbon Dioxide 23
BUN 23 H
Creatinine 1.4 H
Glucose 164 H
Calcium 9.2
Vital Signs:
Vital Signs
Temp Pulse Resp BP Pulse Ox
97.5 F 84 18 160/101 97
02/27/25 16:02 02/27/25 16:02 02/27/25 16:02 02/27/25 16:02 02/27/25 16:02
I&O
02/26/25 02/27/25 02/28/25
06:59 06:59 06:59
Intake Total 480 / 480 960 / 960
Output Total 700 / 700
Balance -220 / -220 960 / 960
[2025-02-27 17:02] LABS: Glucose - Point of Care 256 mg/dl (70-99)
[2025-02-27] MEDS: NOVOLOG FLEXPEN-LOW RESISTANCE 3 UNITS SC (18:23)
[2025-02-27] MEDS: NOVOLOG FLEXPEN 26 UNITS SC (18:23)
[2025-02-27] MEDS: CUBICIN 20 MG IV (18:24)
--- NOTE | 2025-02-27 18:40 | W.PN.ID1 ---
Date of Service
Date of Service: February 27, 2025
Today's Communication
Continue antibiotics. Await cultures.
Assessment / Plan
Left scrotal cellulitis
- Suspect staph or strep as etiology
Leukocytosis
- increasing
Fever; improved
HTN
DM type II
HLD
Recommendations:
Overall appearance would be consistent with a staph or strep infection (although suspect staph, possibly MRSA)
Little improvement despite 7 days anti-staphylococcal therapy.
Continue daptomycin 1000 mg IV every 24 hours (d#7)
Continue Ertapenem (d#4)
Await culture data.
Follow white count and temperature curve.
Holding atorvastatin while patient is on daptomycin.
����������������������������������������������������������
Chief Complaint
-: Other (Left scrotal cellulitis/abscess)
Subjective / Review of Systems
Patient seen and examined. Taken to the OR today for I&D. Patient overall feeling markedly improved.
Review of Systems: No Fever
Vital Signs / Physical Exam
Vital Signs
Vital Signs
Temp Pulse Resp BP Pulse Ox
97.7 F 99 18 156/95 96
02/27/25 18:00 02/27/25 18:00 02/27/25 18:00 02/27/25 18:00 02/27/25 18:00
Physical Exam
Constitutional: No Acute Distress, Comfortable and Non-toxic
Eyes: Sclera Anicteric
Pulmonary: Non Labored
Gastrointestinal: Non Distended
Genito-Urinary: Other (Left scrotal area dressed.)
Extremities: Negative Edema or Cyanosis
Neurological: Awake and Alert
Psychological: Calm
Objective Data
Lab Data
Lab Results
02/27/25 07:40
02/27/25 07:40
Estimated Creat Clear 77 ml/min 02/27/25 07:40
Lactic Acid Cancelled 02/18/25 12:15
Total Bilirubin 1.6 mg/dl (0.2-1.3) H 02/18/25 08:16
AST 16 U/L (17-59) L 02/18/25 08:16
ALT 17 U/L (0-50) 02/18/25 08:16
Alkaline Phosphatase 116 U/L (38-126) 02/18/25 08:16
Most recent labs reviewed.
Micro Results:
02/27/25 13:05 Wound Culture - Pending
Scrotum Gram Stain - Preliminary
02/27/25 13:05 Anaerobic Culture - Pending
Scrotum
02/18/25 08:42 Blood Culture - Final
Blood/Venous No Growth - Final Report
02/18/25 08:16 Blood Culture - Final
Blood/Venous No Growth - Final Report
Imaging:
02/25/2025 CT pelvis with IV contrast: Swelling of the scrotum, particularly on the left, including scrotal wall and some accompanying stranding and edema. Small volume left sided hydrocele. No findings on CT to confirm intrascrotal air or
air-fluid level. No focal fluid collection seen. Please see full dictation for additional detail.
02/18/2025 CT abdomen/pelvis: Stranding soft tissue density involving the visualized superior left hemiscrotum.
[2025-02-27] MEDS: COLACE PO (19:54)
[2025-02-27 21:40] LABS: Glucose - Point of Care 300 mg/dl (70-99)
[2025-02-27] MEDS: TORADOL IV (21:53)
[2025-02-27] MEDS: LANTUS 0.3 UNITS SC (21:54)
[2025-02-28 02:55] LABS: Glucose - Point of Care 257 mg/dl (70-99)
[2025-02-28 03:17] VITALS: BP 108/65
[2025-02-28] MEDS: TORADOL IV ×2 (06:23→16:34)
[2025-02-28] MEDS: DILAUDID 1 MG IV (07:17)
--- NOTE | 2025-02-28 07:23 | PN.DE.MGMTRT ---
Insulin Management
- -
02/28/2025: Diabetes Management Follow up
Patient admitted 02/18 with scrotal swelling, fever - scrotal cellulitis. PMH HTN, diabetes. Prior to admission was taking glipizide 10 mg BID and metformin 1000 mg BID. A1C 12.8%, cr 1.5, eGFR 54.64. Patient states his last A1C was 9 something
and doctor suggested Mandy. Patient admits it was over $1,000 per month and they could not afford it. Patient states he used to test his glucose years ago but has not tested 'in a long time'. Needs a new monitor.
Patient is awake alert and oriented sitting up @ edge of bed, offers no complaints, able to discuss diabetes care.
02/27 Fasting glucose 120 this AM. Patient NPO most of day, for OR.
02/28 POD 1 s/p I&D L side of scrotum. Doing well. Glucose trended up late last night to 300. Fasting glucose 231. Will lantus 30 units @ HS increase novolog 30 units AC .
02/19 I demonstrated prep and injection technique and provided printed instructions for pen use. Patient states he is comfortable self injecting insulin.
I provided patient with Nutrition education booklet and 1800 calorie diet and reviewed extensively. Patient verbalized understanding.
Provided Contour next glucose monitor and instructed, script added to ambulatory orders.
Discussed with nurse. Patient to prepare and self inject AC NovoLog with nursing supervision.
Will cont to follow
Diabetes History
- -
Type of Diabetes: 2 requiring insulin
Pre-Admission Diabetes Regimen
02/27/25
07:40
Creatinine 1.4 H
Lab Results
Hemoglobin A1c 12.8 % (4.0-5.6) H 02/19/25 06:46
Insulin Pump Settings
IP Diabetes Regimen
02/27/25 02/27/25 02/27/25
07:40 11:43 13:44
Glucose 164 H
POC Glucose 164 H 164 H
02/27/25 02/27/2525
17:01 21:39 02:52
Glucose
POC Glucose 256 H 300 H 257 H
Meal type: Lunch
Meal type: Breakfast
Patient Education
[2025-02-28 07:35] VITALS: BP 147/92
--- NOTE | 2025-02-28 07:45 | WOUNDNOTE ---
WO RN note: Patient admitted with sepsis, L scrotal cellulitis, s/p I+D L scrotum yesterday by Dr. Roman. Patient lives with his who will help with wound care along with VN at home when discharged.
See H&P for complete history.
PMH: HTN, NIDDM, obesity.
Wound Location and type/assessment: L scrotal full thickness surgical wound, clean with moderate ss drainage. Back and medial thigh rash, RN Nakita stated they think it's from the CHG wipes pre op. Patient denies itch.
Appetite: good.
Pressure redistribution devices in place: [employer] Accumax. Patient ambulatory.
Plan: Dr. Roman was at bedside and he changed patient's L scrotal packing with dry 2 inch Bob, then covered with 4x4 gauze pads and ABD pad. Secured with stockinet shorts. Patient tolerated wound care fairly well. DMITRY Mace present during wound
care. Instructed patient hand hygiene with wound care when he and his start doing the wound care at home. Dr. Roman stated no further WO RN visits indicated as he will order the wound care. Plan is patient to shower and lightly pack with
gauze daily at home at discharge. Patient to follow up with Dr. Roman and Wound care center. Amery texted ID Dr. Rodriguez re: rash patient's inner thighs and back incase there's a concern the antibiotic is the cause. Will sign off. Call if needed.
--- NOTE | 2025-02-28 07:46 | W.PN.URO.CBU ---
Today's Communication / Plan
-
daily dressing changes
antibx
Assessment / Plan
-
scrotal cellulitis developed into abscess
s/p I+D
pt much improved clinically
packing changed at bedside with wound care- large cavity- but clean with no infection or tissue
may restart subq heparin tomorrow if no bleeding
track wbc and cx's- ID following
urology will perfomr daily dressing changes over the weekend- and if stable- then convert to nursing-teach (says she is willing to learn)
for discharge will need VN (order entered) and outpt wound care consult
will follow
Diagnosis
-
Date of Service: February 28, 2025
-
Patient Diagnosis:
Left scrotal cellulitis
Scrotal abscess
s/p I+D and debridement 02/27
Subjective
-
no fevers
minimal pain
pt says he feels much better
Objective
-
Vital Signs
Temp Pulse Resp BP Pulse Ox
97.4 F 70 18 108/65 97
02/28/25 03:17 02/28/25 03:17 02/28/25 03:17 02/28/25 03:17 02/28/25 03:17
Intake and Output
02/27/25 02/28/25 03/01/25
06:59 06:59 06:59
Intake Total 960 / 960 800 / 800
Output Total 1250 / 1250
Balance 960 / 960 -450 / -450
Intake:
Oral fluids 960 / 960 800 / 800
Output:
Urine, Voided 1250 / 1250
Other:
Number of approximated MODERATE 3 3
amounts of urine
Review of Systems
-
Constitutional: Fatigue
Respiratory: No Symptoms
Cardiac: No Symptoms
Abdomen/GI: No Symptoms
: No Symptoms
Skin: Rash (on inner thighs and back believed secondary to preop clorohex)
Physical Exam
-
General - NAD
ABD - soft, non-tender
Genitalia - mild edema- no sig induration/no crepitus/fluctuance- dusky red appearence of left delmi-scrotum- improved from yesterday
--- NOTE | 2025-02-28 07:50 | WOUNDNOTE ---
SCROTUM (LEFT SIDE)(wound undermines proximally)(patient's L hand in picture).
--- NOTE | 2025-02-28 07:52 | WOUNDNOTE ---
SCROTUM (LEFT SIDE)(wound tunnels proximally)
--- NOTE | 2025-02-28 07:53 | WOUNDNOTE ---
SCROTUM (LEFT SIDE)(wound tunnels proximally)(patient's L hand in picture).
[2025-02-28 07:59] LABS: Glucose - Point of Care 242 mg/dl (70-99)
[2025-02-28 08:06] LABS: % Basophils 0.4 % (0-2); % Immature Granulocytes 2.3 % (0-0.5); % Lymphocytes 11.2 % (20.5-51.1); % Monocytes 3.6 % (1.7-9.3); % Neutrophils 82.5 % (42.2-75.2); Absolute Basophils 0.1 10^3/uL (0-0.2); Absolute Immature Granulocytes 0.4 10^3/uL (0-0.05); Absolute Lymphocytes 1.8 10^3/uL (1.2-3.4); Absolute Monocytes 0.6 10^3/uL (0.1-0.6); Absolute Neutrophils 13.3 10^3/uL (1.4-6.5); Hematocrit 42.7 % (39.0-52.0); Hemoglobin 14.2 g/dL (13.0-18.0); Mean Corp Hgb Conc. 33.3 g/dL (33.0-37.0); Mean Corpuscular Hgb 28.5 pg (27.0-31.0); Mean Corpuscular Volume 85.6 fL (80.0-94.0); Nucleated Red Blood Cells % 0 % (-); Platelet Count 371 10^3/uL (130-400); Red Blood Cell Count 4.99 10^6/uL (4.70-6.10); Red Cell Dist. Width 12.9 % (11.5-14.5); White Blood Cell Count 16.1 10^3/uL (4.8-10.8)
[2025-02-28 08:33] LABS: Blood Urea Nitrogen 31 mg/dl (9-20); Calcium 9.2 mg/dl (8.4-10.2); Carbon Dioxide 26 mmol/L (22-30); Chloride 105 mmol/L (98-107); Estimated Creatinine Clearance 83 ml/min; Glucose 251 mg/dl (70-99); Sodium 136 mmol/L (135-145); eGFR > 60.00
[2025-02-28] MEDS: NORVASC 2.5 MG PO (09:15)
[2025-02-28] MEDS: FLOMAX 0.4 MG PO (09:15)
[2025-02-28] MEDS: COLACE 100 MG PO (09:15)
[2025-02-28] MEDS: PROTONIX 40 MG PO (09:16)
[2025-02-28] MEDS: ZESTRIL 20 MG PO ×2 (09:16→20:42)
[2025-02-28] MEDS: NOVOLOG FLEXPEN 26 UNITS SC ×2 (10:15→13:51)
[2025-02-28 10:17] LABS: Glucose - Point of Care 231 mg/dl (70-99)
[2025-02-28] MEDS: NOVOLOG FLEXPEN-LOW RESISTANCE 2 UNITS SC ×2 (10:17→18:26)
[2025-02-28 11:20] VITALS: BP 141/75
--- NOTE | 2025-02-28 12:42 | W.PN.ID1 ---
Date of Service
Date of Service: February 28, 2025
Today's Communication
Continue antibiotics. See below�
Assessment / Plan
Left scrotal cellulitis
- Suspect staph or strep as etiology
Leukocytosis
- increasing, but suspect secondary to surgery 02/27/25
Fever; improved
HTN
DM type II
HLD
Recommendations:
Clinical improvement noted.
Continue daptomycin (d#8) // Ertapenem (d#5)
Given severity of infection, including the finding of necrosis, would continue for at least an additional week of antibiotics.
Home infusion sheet placed on paper chart. PICC line can be placed once patient nears discharge.
Local care to the wound.
Hold atorvastatin while patient is on daptomycin.
����������������������������������������������������������
Chief Complaint
-: Other (Left scrotal cellulitis/abscess)
Subjective / Review of Systems
Patient seen and examined. Reports feeling improved. Pain decreasing
Vital Signs / Physical Exam
Vital Signs
Vital Signs
Temp Pulse Resp BP Pulse Ox
97.7 F 95 16 146/90 95
02/28/25 07:35 02/28/25 09:15 02/28/25 07:35 02/28/25 09:15 02/28/25 07:35
Physical Exam
Constitutional: No Acute Distress
Eyes: Sclera Anicteric
Pulmonary: Non Labored
Gastrointestinal: Non Distended
Genito-Urinary: Other (Left scrotal area dressed. Packing in place. Overall marked decrease in induration)
Extremities: Negative Edema or Cyanosis
Neurological: Awake and Alert
Psychological: Calm
Objective Data
Lab Data
Lab Results
02/28/25 07:31
02/28/25 07:31
Estimated Creat Clear 83 ml/min 02/28/25 07:31
Lactic Acid Cancelled 02/18/25 12:15
Total Bilirubin 1.6 mg/dl (0.2-1.3) H 02/18/25 08:16
AST 16 U/L (17-59) L 02/18/25 08:16
ALT 17 U/L (0-50) 02/18/25 08:16
Alkaline Phosphatase 116 U/L (38-126) 02/18/25 08:16
Most recent labs reviewed.
Micro Results:
02/27/25 13:05 Anaerobic Culture - Preliminary
Scrotum Culture pending. Anaerobic cultures are examined after 3
days incubation. Additional information to follow.
02/27/25 13:05 Wound Culture - Preliminary
Scrotum No growth
Gram Stain - Preliminary
02/18/25 08:42 Blood Culture - Final
Blood/Venous No Growth - Final Report
02/18/25 08:16 Blood Culture - Final
Blood/Venous No Growth - Final Report
Imaging:
02/25/2025 CT pelvis with IV contrast: Swelling of the scrotum, particularly on the left, including scrotal wall and some accompanying stranding and edema. Small volume left sided hydrocele. No findings on CT to confirm intrascrotal air or
air-fluid level. No focal fluid collection seen. Please see full dictation for additional detail.
02/18/2025 CT abdomen/pelvis: Stranding soft tissue density involving the visualized superior left hemiscrotum.
[2025-02-28 13:48] LABS: Glucose - Point of Care 257 mg/dl (70-99)
[2025-02-28] MEDS: NOVOLOG FLEXPEN-LOW RESISTANCE 3 UNITS SC (13:52)
[2025-02-28 15:00] VITALS: BP 118/79
[2025-02-28] MEDS: INVANZ 60 MG IV (16:36)
--- NOTE | 2025-02-28 16:50 | PTCARENOTE ---
Received patient this am AAOx3. Dr. Roman saw patient this am and change patients dressing. Pt OOB ambulating in room independently with a steady gait. Pt offered no complaints. Tolerated diet well. Made patient comfortable. Cont to assess patient
status.
[2025-02-28] MEDS: CUBICIN 20 MG IV (17:41)
[2025-02-28 17:44] LABS: Glucose - Point of Care 245 mg/dl (70-99)
--- NOTE | 2025-02-28 17:52 | CM ---
Addendum entered by YVONNE Ocasio 02/28/25 18:03:
Patient's stated that she would like instructions on how to pack patient's wound before they leave.
Original Note:
Received consult for VN/wound care. Met with patient and his at bedside. He stated that his preference would be VN. His will do the wound care on the days that he doesn't have services. Will make referral. Patient stated that he was
told that he may not leave until early next week.
Plan: Case management will continue to follow and assist with discharge planning. Home with VN.
[2025-02-28] MEDS: NOVOLOG FLEXPEN 30 UNITS SC (18:27)
--- NOTE | 2025-02-28 19:04 | W.PN.HOSP.TC ---
Today's Communication/Plan
-
See plan
Assessment / Plan
Assessment / Plan
Physical Exam
General: No Apparent Distress
HEENT: Normocephalic
Respiratory: Clear to Auscultation Bilaterally
Cardiac: Regular Rhythm and S1/S2
GI: Soft and Nontender. Positive bowel sounds.
Genito-urinary: Other (left scrotum with redness and swelling and induration)
Musculoskeletal: No Edema
Skin: Warm and Dry
Neuro: AO x 3
Psych: Calm
Assessment/Plan
Mr. Rodney Cabrera is a 55 yo man with hx ex-smoker, HTN, DM presents to the ER with left scrotal swelling and fevers admitted for sepsis 2/2 scrotal cellulitis.
Abdomen/Pelvis CT 02/18/25
IMPRESSION: Stranding soft tissue density involving the visualized superior left hemiscrotum. Reported history of recent injury. This could represent stranding from contusion. Main differential consideration of stranding from inflammation/infection.
Of note, the entire scrotum including the testicles are not fully included on the [id number]-yy-qisa of this examination.
There is no evidence for bowel herniation.
Fatty infiltration the liver.
Two 2 mm calcification within the pancreas, compatible with benign dystrophic calcifications. No CT findings to suggest acute pancreatitis.
Mild to moderate atrophy of the left kidney, asymmetric compared to the right.
Bony degenerative changes as described.
Mild to moderate atrophy of the left kidney, asymmetric compared to the right. No gross evidence for significant narrowing of the left renal artery. No other focal abnormality of the kidneys. The visualized pelvicalyceal systems and ureters appear
within normal limits. No abnormality of the urinary bladder.
Scrotal US 02/18/25
IMPRESSION: Normal sonographic appearance of both testes.
Small to moderate-sized right hydrocele. Minimal left hydrocele.
Suggestion of mild left-sided scrotal skin thickening, greater than on the right.
Sepsis secondary to left scrotal cellulitis with suspected staph or strep infection (although suspect staph, possibly MRSA)
Scrotal abscess status post drainage/exploration (found to have large pus filled cavity and necrotic tissue) on 02/27/25
-CT with stranding left hemiscrotum; US with minimal left hydrocele; mild left-sided scrotal skin thickening
-Urology consult appreciated
-abx changed from IV Zosyn to IV Vanc/Ceftriaxone on 02/19; patient had persistent leukocytosis and swelling; ID consulted on 02/21 and IV antibiotics changed to Daptomycin
-appreciate ID consult - continue IV Daptomycin. Ertapenem added on 02/24/25.
-Follow cultures from OR (OR was on 02/27/25)
-Post-op (drainage/exploration was on 02/27/25): will need wound care and outpatient wound care center consult/VN and while inpatient, daily dressing changes until wound stability/infection control ensured
-Urology recommended performing daily dressing changes over the weekend - and if stable - then convert to nursing-teach (says she is willing to learn)
-At time of discharge, patient will need VN and outpatient wound care consult
-PICC line needs to be placed on patient is closer to discharge (for home IV antibiotics for at least another 1 week), ID placed home infusion sheet on paper chart.
Concern for Possible NIVIA
-no hydro or bladder abnormality seen on CT
-s/p IVF with swelling s/p one dose lasix 20mg IV x 1 (not heart failure; iatrogenic swelling)
-HCTZ stopped
Essential Hypertension
-resumed REGULATOR TESTER lisinopril; HCTZ stopped given rising creatinine; started Amlodipine 02/24/25
-Dr. Walter changed Lisinopril to 20mg PO BID (was on 40 mg PO HS) to better have daytime control HTN
NIDDM
-hold REGULATOR TESTER Metformin
-stop Glipizide
-A1c > 12 --> DM AUXILIARY ENGINEER consult appreciated, and patient started on insulin - will DC on insulin, patient has been practicing injections
HLD - Hold Atorvastatin while on Daptomycin.
DVT Prophylaxis: HOLD subcutaneous heparin for 48 hrs (through March 01, 2025 afternoon) due to incision/bleeding risk
Code Status: FULL CODE
Anticipated Discharge: > 48 hours
Subjective/Interval History
-
Date of Service: February 28, 2025
Patient was seen and examined. He reported feeling much better after the surgery yesterday.
Objective Data
-
Labs:
Laboratory Results
02/28/25
07:31
WBC 16.1 H
Hgb 14.2
Hct 42.7
Plt Count 371
Sodium 136
Potassium 5.0
Chloride 105
Carbon Dioxide 26
BUN 31 H
Creatinine 1.3
Glucose 251 H
Calcium 9.2
Vital Signs:
Vital Signs
Temp Pulse Resp BP Pulse Ox
98.5 F 97 18 118/79 98
02/28/25 15:00 02/28/25 15:00 02/28/25 15:00 02/28/25 15:00 02/28/25 15:00
I&O
02/27/25 02/28/25 03/01/25
06:59 06:59 06:59
Intake Total 960 / 960 800 / 800
Output Total 1250 / 1250
Balance 960 / 960 -450 / -450
[2025-02-28 19:49] VITALS: BP 105/68
[2025-02-28] MEDS: COLACE PO (20:45)
[2025-02-28 21:45] LABS: Glucose - Point of Care 140 mg/dl (70-99)
[2025-02-28] MEDS: LANTUS 0.3 UNITS SC (22:02)
[2025-02-28] MEDS: TORADOL 30 MG IV (22:05)
[2025-02-28 23:45] VITALS: BP 107/66
[2025-03-01] MEDS: TORADOL 30 MG IV (06:06)
[2025-03-01 07:22] LABS: Glucose - Point of Care 137 mg/dl (70-99)
[2025-03-01 07:54] VITALS: BP 132/76
[2025-03-01 08:00] LABS: % Basophils 0.6 % (0-2); % Immature Granulocytes 2.3 % (0-0.5); % Lymphocytes 22.3 % (20.5-51.1); % Monocytes 5.8 % (1.7-9.3); Absolute Basophils 0.1 10^3/uL (0-0.2); Absolute Eosinophils 0.2 10^3/uL (0-0.7); Absolute Immature Granulocytes 0.2 10^3/uL (0-0.05); Absolute Lymphocytes 2.4 10^3/uL (1.2-3.4); Absolute Monocytes 0.6 10^3/uL (0.1-0.6); Absolute Neutrophils 7.1 10^3/uL (1.4-6.5); Hematocrit 40.7 % (39.0-52.0); Hemoglobin 13.2 g/dL (13.0-18.0); Mean Corp Hgb Conc. 32.4 g/dL (33.0-37.0); Mean Corpuscular Hgb 28.3 pg (27.0-31.0); Mean Corpuscular Volume 87.2 fL (80.0-94.0); Mean Platelet Volume 9.1 fL (7.4-10.4); Nucleated Red Blood Cells % 0 % (-); Platelet Count 373 10^3/uL (130-400); Red Blood Cell Count 4.67 10^6/uL (4.70-6.10); Red Cell Dist. Width 13.2 % (11.5-14.5); White Blood Cell Count 10.6 10^3/uL (4.8-10.8)
[2025-03-01] MEDS: NOVOLOG FLEXPEN-LOW RESISTANCE SC ×2 (08:29→17:51)
[2025-03-01] MEDS: ZESTRIL 20 MG PO (08:57)
[2025-03-01] MEDS: NORVASC 2.5 MG PO (08:57)
[2025-03-01] MEDS: FLOMAX 0.4 MG PO (08:57)
[2025-03-01] MEDS: PROTONIX 40 MG PO (08:57)
[2025-03-01] MEDS: COLACE PO ×2 (09:03→20:42)
[2025-03-01 09:10] LABS: Blood Urea Nitrogen 37 mg/dl (9-20); Calcium 8.8 mg/dl (8.4-10.2); Carbon Dioxide 26 mmol/L (22-30); Chloride 106 mmol/L (98-107); Creatine Phosphokinase 74 U/L (55-170); Estimated Creatinine Clearance 68 ml/min; Glucose 131 mg/dl (70-99); Potassium 4.8 mmol/L (3.5-5.1); Sodium 138 mmol/L (135-145); eGFR 50.57
[2025-03-01] MEDS: ULTRAM 25 MG PO (09:18)
[2025-03-01] MEDS: NOVOLOG FLEXPEN 30 UNITS SC ×3 (10:17→17:50)
--- NOTE | 2025-03-01 10:43 | W.PN.HOSP.TC ---
Today's Communication/Plan
-
NIVIA -- hold Lisinopril, stop Toradol, start IV fluids
Increase Amlodipine frequency to 2.5 mg Q12H given holding Lisinopril now, if needed can increase Amlodipine to 5 mg BID
Low Sodium, Diabetic Diet
Resume Heparin Subq for DVT prophylaxis
Assessment / Plan
Assessment / Plan
Physical Exam
General: No Apparent Distress
HEENT: Normocephalic
Respiratory: Clear to Auscultation Bilaterally
Cardiac: Regular Rhythm and S1/S2
GI: Soft and Nontender. Positive bowel sounds.
Genito-urinary: Other (left scrotum with dressing)
Musculoskeletal: No Edema
Skin: Warm and Dry
Neuro: AO x 3
Psych: Calm
Assessment/Plan
Mr. Rodney Cabrera is a 55 yo man with hx ex-smoker, HTN, DM presents to the ER with left scrotal swelling and fevers admitted for sepsis 2/2 scrotal cellulitis.
Abdomen/Pelvis CT 02/18/25
IMPRESSION: Stranding soft tissue density involving the visualized superior left hemiscrotum. Reported history of recent injury. This could represent stranding from contusion. Main differential consideration of stranding from inflammation/infection.
Of note, the entire scrotum including the testicles are not fully included on the [id number] of this examination.
There is no evidence for bowel herniation.
Fatty infiltration the liver.
Two 2 mm calcification within the pancreas, compatible with benign dystrophic calcifications. No CT findings to suggest acute pancreatitis.
Mild to moderate atrophy of the left kidney, asymmetric compared to the right.
Bony degenerative changes as described.
Mild to moderate atrophy of the left kidney, asymmetric compared to the right. No gross evidence for significant narrowing of the left renal artery. No other focal abnormality of the kidneys. The visualized pelvicalyceal systems and ureters appear
within normal limits. No abnormality of the urinary bladder.
Scrotal US 02/18/25
IMPRESSION: Normal sonographic appearance of both testes.
Small to moderate-sized right hydrocele. Minimal left hydrocele.
Suggestion of mild left-sided scrotal skin thickening, greater than on the right.
Sepsis secondary to left scrotal cellulitis with suspected staph or strep infection (although suspect staph, possibly MRSA)
Scrotal abscess status post drainage/exploration (found to have large pus filled cavity and necrotic tissue) on 02/27/25
-CT with stranding left hemiscrotum; US with minimal left hydrocele; mild left-sided scrotal skin thickening
-Urology consult appreciated
-abx changed from IV Zosyn to IV Vanc/Ceftriaxone on 02/19; patient had persistent leukocytosis and swelling; ID consulted on 02/21 and IV antibiotics changed to Daptomycin
-appreciate ID consult - continue IV Daptomycin. Ertapenem added on 02/24/25.
-Follow cultures from OR (OR was on 02/27/25) -- no growth so far
-Post-op (drainage/exploration was on 02/27/25): will need wound care and outpatient wound care center consult/VN and while inpatient, daily dressing changes until wound stability/infection control ensured
-Urology recommended performing daily dressing changes over the weekend (03/01/25 and 03/02/25) - and if stable - then convert to nursing-teach (says she is willing to learn)
-At time of discharge, patient will need VN and outpatient wound care consult
-PICC line needs to be placed on patient is closer to discharge (for home IV antibiotics for at least another 1 week), ID placed home infusion sheet on paper chart.
NIVIA
-no hydro or bladder abnormality seen on CT
-s/p IVF with swelling s/p one dose lasix 20mg IV x 1 (not heart failure; iatrogenic swelling)
-HCTZ stopped
-Creatinine increased to 1.6 on 03/01/25 --> held Lisinopril, stopped IV Toradol (ordered by urology)
-Started NSS IV fluids @ 75 cc/hr
-Monitor for urinary retention
Essential Hypertension
-Holding Lisinopril starting 03/01/25 given NIVIA; HCTZ stopped given rising creatinine
-Increased Amlodipine to 2.5 mg Q12H since holding Lisinopril given NIVIA
NIDDM
-hold PHARMACY COORDINATOR Metformin
-stop Glipizide
-A1c > 12 --> DM AUTO PARKER consult appreciated, and patient started on insulin - will DC on insulin, patient has been practicing injections
HLD - Hold Atorvastatin while on Daptomycin.
DVT Prophylaxis: Okay to resume Heparin Subq this evening as per urology
Code Status: FULL CODE
Anticipated Discharge: 24 - 48 hours
Subjective/Interval History
-
Date of Service: March 01, 2025
Patient was seen and examined. He reported feeling well, denied any new symptoms or complaints.
Objective Data
-
Labs:
Laboratory Results
03/01/25
07:18
WBC 10.6
Hgb 13.2
Hct 40.7
Plt Count 373
Sodium 138
Potassium 4.8
Chloride 106
Carbon Dioxide 26
BUN 37 H
Creatinine 1.6 H
Glucose 131 H
Calcium 8.8
Vital Signs:
Vital Signs
Temp Pulse Resp BP Pulse Ox
98 F 81 16 132/76 96
03/01/25 07:54 03/01/25 07:54 03/01/25 07:54 03/01/25 07:54 03/01/25 07:54
I&O
02/28/25 03/01/25 03/02/25
06:59 06:59 06:59
Intake Total 800 / 800 780 / 780 480 / 480
Output Total 1250 / 1250
Balance -450 / -450 780 / 780 480 / 480
--- NOTE | 2025-03-01 11:47 | W.PN.URO.CBU ---
Today's Communication / Plan
-
rhonda blas tomorrow and call to be there
Assessment / Plan
-
scrotal cellulitis developed into abscess
s/p I+D
pt much improved clinically
packing changed at bedside with wound care- large cavity- but clean with no infection or tissue
may restart subq heparin tomorrow if no bleeding
track wbc and cx's- ID following
urology will perfomr daily dressing changes over the weekend- and if stable- then convert to nursing-teach (says she is willing to learn)
for discharge will need VN (order entered) and outpt wound care consult
will follow
Diagnosis
-
Date of Service: March 01, 2025
-
Patient Diagnosis:
Post Op Day:
Patient Diagnosis:
Left scrotal cellulitis
Scrotal abscess
s/p I+D and debridement 02/27
Subjective
-
feeling much better over all
Objective
-
Vital Signs
Temp Pulse Resp BP Pulse Ox
98 F 81 16 132/76 96
03/01/25 07:54 03/01/25 07:54 03/01/25 07:54 03/01/25 07:54 03/01/25 07:54
Intake and Output
02/28/25 03/01/25 03/02/25
06:59 06:59 06:59
Intake Total 800 / 800 780 / 780 480 / 480
Output Total 1250 / 1250
Balance -450 / -450 780 / 780 480 / 480
Intake:
Oral fluids 800 / 800 720 / 720 480 / 480
IV piggybacks 60 / 60
Output:
Urine, Voided 1250 / 1250
Other:
Number of approximated MODERATE 3 1 1
amounts of urine
Laboratory Results
03/01/25 07:18
03/01/25 07:18
Review of Systems
-
: Other (less pain)
Physical Exam
-
General - well developed, well nourished, no acute distress
Chest - clear bilaterally
Abdomen - soft, non-tender, positive bowel sounds, no CVAT, no incisional pain or distention
Genitalia -removed dressing inspected no necrotic areas repacked wound
Rectal - normal
Skin - warm & dry with no rash
Neuro - AOx3, no motor deficits
Extremities - no clubbing, no cyanosis, no edema
Incision - clean, dry
Dressing - clean, dry, intact
Care Review
Data Reviewed
Discussed with: Hospitalist and Nursing
[2025-03-01] MEDS: NSS 1000 IV (12:16)
[2025-03-01 12:59] LABS: Glucose - Point of Care 245 mg/dl (70-99)
[2025-03-01] MEDS: NOVOLOG FLEXPEN-LOW RESISTANCE 2 UNITS SC (14:27)
[2025-03-01 15:14] VITALS: BP 139/82
[2025-03-01] MEDS: INVANZ 60 MG IV (16:43)
--- NOTE | 2025-03-01 17:00 | PTCARENOTE ---
03/01- Patient transferred and oriented to unit without issue. AAOX3; Independent; MedSurg. Patient just urinated on his own without difficulty or pain. Urine is Clear/[place] at this time. No need for Bladder Scan/Straight Cath at this time.
Continue to monitor urination. Surgical site dressing on L-scrotum CDI. Penis/urethra skin CDI. Scrotal dressing freshly changed today by Urology. Patient denies any needs or pain at this time.
--- NOTE | 2025-03-01 17:16 | PTCARENOTE ---
Possible exposure to CDiff from roommate. Pt transported to private room 430 with all belongings from the room.
[2025-03-01 17:46] LABS: Glucose - Point of Care 79 mg/dl (70-99)
[2025-03-01] MEDS: CUBICIN 20 MG IV (17:51)
[2025-03-01] MEDS: HEPARIN 5000 UNITS SC (20:42)
[2025-03-01 22:12] LABS: Glucose - Point of Care 123 mg/dl (70-99)
[2025-03-01] MEDS: LANTUS 0.3 UNITS SC (22:14)
[2025-03-01] MEDS: NORVASC PO (22:21)
[2025-03-01 23:36] VITALS: BP 154/88
[2025-03-02] MEDS: NSS 1000 IV (02:43)
[2025-03-02 06:24] LABS: Hematocrit 41.2 % (39.0-52.0); Hemoglobin 13.5 g/dL (13.0-18.0); Mean Corp Hgb Conc. 32.8 g/dL (33.0-37.0); Mean Corpuscular Hgb 28.5 pg (27.0-31.0); Mean Corpuscular Volume 86.9 fL (80.0-94.0); Mean Platelet Volume 9.2 fL (7.4-10.4); Platelet Count 393 10^3/uL (130-400); Red Blood Cell Count 4.74 10^6/uL (4.70-6.10); Red Cell Dist. Width 13.1 % (11.5-14.5); White Blood Cell Count 9.6 10^3/uL (4.8-10.8)
[2025-03-02 06:58] LABS: Blood Urea Nitrogen 33 mg/dl (9-20); Calcium 8.6 mg/dl (8.4-10.2); Carbon Dioxide 21 mmol/L (22-30); Chloride 111 mmol/L (98-107); Estimated Creatinine Clearance 77 ml/min; Glucose 122 mg/dl (70-99); Sodium 138 mmol/L (135-145); eGFR 59.36
[2025-03-02] MEDS: NORVASC 2.5 MG PO ×2 (07:47→20:39)
[2025-03-02] MEDS: PROTONIX 40 MG PO (07:49)
[2025-03-02] MEDS: COLACE PO ×2 (07:49→20:39)
[2025-03-02] MEDS: FLOMAX 0.4 MG PO (07:49)
[2025-03-02] MEDS: HEPARIN 5000 UNITS SC (07:49)
[2025-03-02 07:50] VITALS: BP 156/96
[2025-03-02] MEDS: NOVOLOG FLEXPEN-LOW RESISTANCE SC ×2 (07:50→17:55)
[2025-03-02 07:59] LABS: Glucose - Point of Care 131 mg/dl (70-99)
--- NOTE | 2025-03-02 08:11 | W.PN.HOSP.TC ---
Today's Communication/Plan
-
I spoke extensively with rn case manager hospice about discharging patient on 03/02/25, and she said she still has to do paperwork to set up home IV antibiotics
Continue antibiotics
NIVIA improved
Doing well
Assessment / Plan
Assessment / Plan
Physical Exam
General: No Apparent Distress
HEENT: Normocephalic
Respiratory: Clear to Auscultation Bilaterally
Cardiac: Regular Rhythm and S1/S2
GI: Soft and Nontender. Positive bowel sounds.
Genito-urinary: Other (left scrotum with dressing)
Musculoskeletal: No Edema
Skin: Warm and Dry
Neuro: AO x 3
Psych: Calm
Assessment/Plan
Mr. Rodney Cabrera is a 55 yo man with hx ex-smoker, HTN, DM presents to the ER with left scrotal swelling and fevers admitted for sepsis 2/2 scrotal cellulitis.
Abdomen/Pelvis CT 02/18/25
IMPRESSION: Stranding soft tissue density involving the visualized superior left hemiscrotum. Reported history of recent injury. This could represent stranding from contusion. Main differential consideration of stranding from inflammation/infection.
Of note, the entire scrotum including the testicles are not fully included on the [id number] of this examination.
There is no evidence for bowel herniation.
Fatty infiltration the liver.
Two 2 mm calcification within the pancreas, compatible with benign dystrophic calcifications. No CT findings to suggest acute pancreatitis.
Mild to moderate atrophy of the left kidney, asymmetric compared to the right.
Bony degenerative changes as described.
Mild to moderate atrophy of the left kidney, asymmetric compared to the right. No gross evidence for significant narrowing of the left renal artery. No other focal abnormality of the kidneys. The visualized pelvicalyceal systems and ureters appear
within normal limits. No abnormality of the urinary bladder.
Scrotal US 02/18/25
IMPRESSION: Normal sonographic appearance of both testes.
Small to moderate-sized right hydrocele. Minimal left hydrocele.
Suggestion of mild left-sided scrotal skin thickening, greater than on the right.
Sepsis secondary to left scrotal cellulitis with suspected staph or strep infection (although suspect staph, possibly MRSA)
Scrotal abscess status post drainage/exploration (found to have large pus filled cavity and necrotic tissue) on 02/27/25
-CT with stranding left hemiscrotum; US with minimal left hydrocele; mild left-sided scrotal skin thickening
-Urology consult appreciated
-abx changed from IV Zosyn to IV Vanc/Ceftriaxone on 02/19; patient had persistent leukocytosis and swelling; ID consulted on 02/21 and IV antibiotics changed to Daptomycin
-appreciate ID consult - continue IV Daptomycin. Ertapenem added on 02/24/25.
-Follow cultures from OR (OR was on 02/27/25) -- no growth so far
-Post-op (drainage/exploration was on 02/27/25): will need wound care and outpatient wound care center consult/VN and while inpatient, daily dressing changes until wound stability/infection control ensured
-Urology recommended performing daily dressing changes over the weekend (03/01/25 and 03/02/25) - and if stable - then convert to nursing-teach (says she is willing to learn)
-At time of discharge, patient will need VN and outpatient wound care consult
-PICC line needs to be placed on patient is closer to discharge (for home IV antibiotics for at least another 1 week), ID placed home infusion sheet on paper chart.
-I spoke extensively with rn case manager hospice on 03/02/25, and she said she still has to do paperwork to set up home IV antibiotics
NIVIA
-no hydro or bladder abnormality seen on CT
-s/p IVF with swelling s/p one dose lasix 20mg IV x 1 (not heart failure; iatrogenic swelling)
-HCTZ stopped
-Creatinine increased to 1.6 on 03/01/25 --> on 03/01/25, held Lisinopril, stopped IV Toradol (ordered by urology)
-Started NSS IV fluids @ 75 cc/hr --> creatinine improved on 03/02/25 and patient did not want any more IV fluids, so stopped IV fluids, patient said he will do more PO hydration
-Creatinine is now improving with the above measures
-Monitor for urinary retention
Non-Anion Gap Metabolic Acidosis
-Suspected from normal saline IV fluids as above, now stopped as above
Essential Hypertension
-Holding Lisinopril starting 03/01/25 given NIVIA; HCTZ stopped given rising creatinine
-Increased Amlodipine to 2.5 mg Q12H since holding Lisinopril given NIVIA
-After the above changes, blood pressure has been acceptable to date
NIDDM
-hold DOOR MANAGER Metformin
-stop Glipizide
-A1c > 12 --> DM INTERLOCKING MACHINE OPERATOR consult appreciated, and patient started on insulin - will DC on insulin, patient has been practicing injections
HLD - Hold Atorvastatin while on Daptomycin.
DVT Prophylaxis: Resumed Heparin SUBQ on 03/01/25 evening
Code Status: FULL CODE
Anticipated Discharge: Within 24 hours
Subjective/Interval History
-
Date of Service: March 02, 2025
Patient was seen and examined. He reported feeling well and denied any symptoms or complaints.
Objective Data
-
Labs:
Laboratory Results
03/02/25
05:44
WBC 9.6
Hgb 13.5
Hct 41.2
Plt Count 393
Sodium 138
Potassium 5.0
Chloride 111 H
Carbon Dioxide 21 L
BUN 33 H
Creatinine 1.4 H
Glucose 122 H
Calcium 8.6
Vital Signs:
Vital Signs
Temp Pulse Resp BP Pulse Ox
98.5 F 86 12 156/96 98
03/01/25 23:36 03/02/25 07:50 03/02/25 07:50 03/02/25 07:50 03/02/25 07:50
I&O
03/01/25 03/02/25 03/03/25
06:59 06:59 06:59
Intake Total 780 / 780 1380 / 1380
Output Total 780 / 780
Balance 780 / 780 600 / 600
[2025-03-02 08:48] VITALS: BP 152/89
[2025-03-02] MEDS: NOVOLOG FLEXPEN 30 UNITS SC ×3 (10:09→17:54)
[2025-03-02] MEDS: TYLENOL 650 MG PO (11:16)
--- NOTE | 2025-03-02 11:45 | W.PN.URO.CBU ---
Today's Communication / Plan
-
looks good continue present care
Assessment / Plan
-
scrotal cellulitis developed into abscess
s/p I+D
pt much improved clinically
packing changed at bedside with wound care- large cavity- but clean with no infection or tissue
may restart subq heparin tomorrow if no bleeding
track wbc and cx's- ID following
urology will perfomr daily dressing changes over the weekend- and if stable- then convert to nursing-teach (says she is willing to learn)
for discharge will need VN (order entered) and outpt wound care consult
will follow
Diagnosis
-
Date of Service: March 02, 2025
-
Patient Diagnosis:
Post Op Day:
Patient Diagnosis:
Post Op Day:
Patient Diagnosis:
Left scrotal cellulitis
Scrotal abscess
s/p I+D and debridement 02/27
Subjective
-
improving no systemic complaints
Objective
-
Vital Signs
Temp Pulse Resp BP Pulse Ox
98.3 F 86 16 152/89 94
03/02/25 08:48 03/02/25 08:48 03/02/25 08:48 03/02/25 08:48 03/02/25 08:48
Intake and Output
03/01/25 03/02/25 03/03/25
06:59 06:59 06:59
Intake Total 780 / 780 1380 / 1380
Output Total 780 / 780
Balance 780 / 780 600 / 600
Intake:
Oral fluids 720 / 720 480 / 480
IV fluids (Total) 900 / 900
IV piggybacks 60 / 60
Output:
Urine, Voided 780 / 780
Other:
Number of approximated MODERATE 1 1
amounts of urine
Laboratory Results
03/02/25 05:44
03/02/25 05:44
Review of Systems
-
: Other (scrotal pain on dressing changes other parr improved)
Physical Exam
-
General - well developed, well nourished, no acute distress
Chest - clear bilaterally
Abdomen - soft, non-tender, positive bowel sounds, no CVAT, no incisional pain or distention
Genitalia - normal
Rectal - normal
Skin - warm & dry with no rash
Neuro - AOx3, no motor deficits
Extremities - no clubbing, no cyanosis, no edema
Incision - clean, dry
Dressing - clean, dry, intact
Care Review
Data Reviewed
Discussed with: Hospitalist, Nursing and Family
[2025-03-02 12:27] LABS: Glucose - Point of Care 213 mg/dl (70-99)
[2025-03-02] MEDS: NOVOLOG FLEXPEN-LOW RESISTANCE 2 UNITS SC (12:57)
--- NOTE | 2025-03-02 15:08 | CM ---
Chart reviewed and script for IV ABX located on chart, skilled nursing case manager met with patient to review infusion options and patient is agreeable to [facility], referral sent to [facility] including script and progress notes and skilled nursing case manager will wait for
insurance approval and cost of medication after insurance is reviewed. [facility]
Plan; Referral sent to [facility] for home IV ABX. [facility]
[2025-03-02 15:20] VITALS: BP 133/83
[2025-03-02] MEDS: INVANZ 60 MG IV (16:40)
[2025-03-02 17:41] LABS: Glucose - Point of Care 128 mg/dl (70-99)
[2025-03-02] MEDS: CUBICIN 20 MG IV (17:57)
[2025-03-02] MEDS: HEPARIN SC (20:39)
[2025-03-02 21:19] LABS: Glucose - Point of Care 91 mg/dl (70-99)
[2025-03-02] MEDS: LANTUS 0.3 UNITS SC (22:22)
[2025-03-02 23:04] VITALS: BP 128/75
--- NOTE | 2025-03-03 07:08 | PN.DE.MGMTRT ---
Insulin Management
- -
03/03/2025: Diabetes Management Follow up
Patient admitted 02/18 with scrotal swelling, fever - scrotal cellulitis. PMH HTN, diabetes. Prior to admission was taking glipizide 10 mg BID and metformin 1000 mg BID. A1C 12.8%, cr 1.5, eGFR 54.64. Patient states his last A1C was 9 something
and doctor suggested Mandy. Patient admits it was over $1,000 per month and they could not afford it. Patient states he used to test his glucose years ago but has not tested 'in a long time'. Needs a new monitor.
Patient is awake alert and oriented sitting up in chair, offers no complaints, able to discuss diabetes care.
POD #4 s/p I&D L side of scrotum. Doing well. States his blood sugar was 91 at bedtime and that he was symptomatic and was given orange juice.
Fasting glucose 131 this AM. Premeal 128 to 213 yesterday.
Will reduce Lantus to 28 units @ HS. Cont NovoLog 30 units AC.
Discussed current A1C and expected goal A1C to reduce risk for poor wound healing and recurrent infections
Review testing pattern and expected results with patient. Instructed him to contact PCP for dose adjustment if he notices blood glucose consistently <80
02/19 I demonstrated prep and injection technique and provided printed instructions for pen use. Patient states he is comfortable self injecting insulin.
I provided patient with Nutrition education booklet and 1800 calorie diet and reviewed extensively. Patient verbalized understanding.
Provided Contour next glucose monitor and instructed, script added to ambulatory orders.
Discussed with nurse. Patient to prepare and self inject AC NovoLog with nursing supervision.
Will cont to follow
Diabetes History
- -
Type of Diabetes: 2 requiring insulin
Pre-Admission Diabetes Regimen
Lab Results
Hemoglobin A1c 12.8 % (4.0-5.6) H 02/19/25 06:46
Insulin Pump Settings
IP Diabetes Regimen
03/02/25 03/02/25 03/02/25
07:58 12:26 17:39
POC Glucose 131 H 213 H 128 H
03/02/25
21:18
POC Glucose 91
Patient Education
[2025-03-03 07:52] VITALS: BP 136/84
[2025-03-03 07:58] LABS: Glucose - Point of Care 131 mg/dl (70-99)
[2025-03-03 08:06] LABS: Hematocrit 42.6 % (39.0-52.0); Hemoglobin 13.8 g/dL (13.0-18.0); Mean Corp Hgb Conc. 32.4 g/dL (33.0-37.0); Mean Corpuscular Hgb 28.4 pg (27.0-31.0); Mean Corpuscular Volume 87.7 fL (80.0-94.0); Mean Platelet Volume 8.8 fL (7.4-10.4); Platelet Count 398 10^3/uL (130-400); Red Blood Cell Count 4.86 10^6/uL (4.70-6.10); White Blood Cell Count 8.6 10^3/uL (4.8-10.8)
[2025-03-03] MEDS: NOVOLOG FLEXPEN-LOW RESISTANCE SC (08:26)
[2025-03-03] MEDS: NOVOLOG FLEXPEN 30 UNITS SC ×2 (08:26→12:28)
[2025-03-03] MEDS: HEPARIN SC (08:27)
[2025-03-03] MEDS: NORVASC 2.5 MG PO (08:27)
[2025-03-03] MEDS: FLOMAX 0.4 MG PO (08:27)
[2025-03-03] MEDS: PROTONIX 40 MG PO (08:27)
[2025-03-03] MEDS: COLACE PO (08:29)
--- NOTE | 2025-03-03 08:51 | CM ---
Addendum entered by Dianne Fleming 03/03/25 12:16:
Patient spoke with [facility] and plan is to home with home infusion, Angela from [facility] to come to hospital today at 1:30pm to meet with patient and spouse to set up and teach home infusion therapy.
Addendum entered by Dianne Fleming 03/03/25 10:09:
Per [facility] patient has a deductible of $4,000 only met $800 at this time,once patient meets deductible patient is covered 100%, [facility] to review with patient.
Original Note:
Call placed to [facility] to review cost of IV ABX still waiting on [facility] to review cost of medication, and clear patient to home and provide medication in home for patient, patient has been set up with [facility].
Plan; Home with IV ABX from [facility] and [facility].
[2025-03-03 09:24] LABS: Blood Urea Nitrogen 22 mg/dl (9-20); Calcium 8.9 mg/dl (8.4-10.2); Carbon Dioxide 23 mmol/L (22-30); Chloride 108 mmol/L (98-107); Estimated Creatinine Clearance 83 ml/min; Glucose 124 mg/dl (70-99); Potassium 5.1 mmol/L (3.5-5.1); Sodium 139 mmol/L (135-145); eGFR > 60.00
[2025-03-03] MEDS: TYLENOL 650 MG PO (10:07)
--- NOTE | 2025-03-03 11:14 | W.PN.HOSP.TC ---
Addendum entered and electronically signed by Greg Mike MD 03/03/25 13:25:
Total time spent on d/c = 40 min. This included today's physical exam, progress note, review of laboratory and diagnostic data, preparation of discharge documents and prescriptions, and discussions about the pt's hospital course and discharge plan
with the patient and other medical care manager involved in the patient's care.
Original Note:
Today's Communication/Plan
-
Goal for discharge today.
Assessment / Plan
Assessment / Plan
Gen: NAD, AAOx3.
Eyes: EOMI, PERRLA, no scleral icterus.
Neck: supple.
CV: RRR, +S1/S2, no m/r/g.
Resp: CTAB, no rales, wheezes, or rhonchi.
Abd: +BS, soft, NT, ND
Skin: No rashes.
: deferred
Neuro: CN 2-12 intact, non-focal.
Psych: Normal mood and affect.
02/27/25 13:05 Scrotum Anaerobic Culture - Preliminary
NO ANAEROBES ISOLATED
02/27/25 13:05 Scrotum Wound Culture - Preliminary
No growth
02/27/25 13:05 Scrotum Gram Stain - Preliminary
02/18/25 08:42 Blood/Venous Blood Culture - Final
No Growth - Final Report
02/18/25 08:16 Blood/Venous Blood Culture - Final
No Growth - Final Report
CT A/P 02/18/25: Stranding soft tissue density involving the visualized superior left hemiscrotum. Reported history of recent injury. This could represent stranding from contusion. Main differential consideration of stranding from
inflammation/infection. Of note, the entire scrotum including the testicles are not fully included on the [id number] of this examination. There is no evidence for bowel herniation. Fatty infiltration the liver. Two 2 mm calcification within the
pancreas, compatible with benign dystrophic calcifications. No CT findings to suggest acute pancreatitis. Mild to moderate atrophy of the left kidney, asymmetric compared to the right.
Bony degenerative changes as described.
Mild to moderate atrophy of the left kidney, asymmetric compared to the right. No gross evidence for significant narrowing of the left renal artery. No other focal abnormality of the kidneys. The visualized pelvicalyceal systems and ureters appear
within normal limits. No abnormality of the urinary bladder.
Scrotal US 02/18/25: Normal sonographic appearance of both testes.
Small to moderate-sized right hydrocele. Minimal left hydrocele.
Suggestion of mild left-sided scrotal skin thickening, greater than on the right.
Sepsis due to L scrotal cellulitis/abscess with suspected staph or strep infection (although suspect staph, possibly MRSA)
-scrotal abscess status post drainage/exploration (found to have large pus filled cavity and necrotic tissue) on 02/27/25
-CT with stranding left hemiscrotum; US with minimal left hydrocele; mild left-sided scrotal skin thickening
-Urology following
-abx changed from IV Zosyn to IV Vanc/Ceftriaxone on 02/19; patient had persistent leukocytosis and swelling; ID consulted on 02/21 and IV antibiotics changed to Daptomycin, Ertapenem added on 02/24/25.
-culture data no growth as above
-daily dressing changes
-place midline
NIVIA:
-no hydro or bladder abnormality seen on CT
-s/p IVF with swelling s/p one dose lasix 20mg IV x 1 (not heart failure; iatrogenic swelling)
-HCTZ stopped
-Cr increased to 1.6 on 03/01/25, held Lisinopril, stopped IV Toradol (ordered by urology)
-Started NSS IV fluids @ 75 cc/hr, Cr improved on 03/02/25, IVFs stopped
-NIVIA has resolved
-Non-AG Metabolic Acidosis, likely due to NS, resolved
DM2:
-a1c 12
-cont Lantus
-seen by diabetes NITROGEN OPERATOR
Other problems:
Morbid obesity due to excess calories
Essential Hypertension: cont Norvasc
HLD: holding statin while on Daptomycin
FULL/heparin
Anticipated Discharge: Today
Subjective/Interval History
-
Date of Service: March 03, 2025
No new complaints.
Objective Data
-
Labs:
Laboratory Results
03/03/25
07:19
WBC 8.6
Hgb 13.8
Hct 42.6
Plt Count 398
Sodium 139
Potassium 5.1
Chloride 108 H
Carbon Dioxide 23
BUN 22 H
Creatinine 1.3
Glucose 124 H
Calcium 8.9
Vital Signs:
Vital Signs
Temp Pulse Resp BP Pulse Ox
98.5 F 83 16 136/84 95
03/03/25 07:52 03/03/25 07:52 03/03/25 07:52 03/03/25 07:52 03/03/25 07:52
I&O
03/02/25 03/03/25 03/04/25
06:59 06:59 06:59
Intake Total 1380 / 1380 480 / 480
Output Total 780 / 780 375 / 375
Balance 600 / 600 105 / 105
--- NOTE | 2025-03-03 11:47 | VATNOTE ---
Reviewed need for PICC line versus midline with MD and Camp Maintenance Supervisor, both OK for midline placement for this patient home antibiotic needs.
[2025-03-03] MEDS: NOVOLOG FLEXPEN-LOW RESISTANCE 2 UNITS SC (12:28)
[2025-03-03 12:29] LABS: Glucose - Point of Care 223 mg/dl (70-99)
--- NOTE | 2025-03-03 13:16 | PN.CDI ---
CDI
- -
CDI:
Physician Documentation Request
Admit Date: 02/18/25 12:21
Dear Doctor Abel,
Clinical Indicators:
Patient admitted with scrotal abscess and cellulitis; s/p Incision of scrotal abscess with scrotal exploration
and debridement 02/27.
02/27 Operative Report, 'Using manual debridement, I broke up all of the potential pockets until the wound was fully open with no tracking or unexplored cavities either inferiorly or superiorly...There was some necrotic debris at the base of the
wound and along the skin edges, which was debrided back to healthy bleeding tissue'
Could you provide, in the progress notes further clarification regarding the debridement.
Please specify the type of debridement performed:
1. Excisional Debridement - defined as removal by excision of devitalized tissue, necrosis or slough
2. Non-excisional debridement - defined as removal of devitalized tissue, necrosis or slough by such methods as irrigation, brushing, scrubbing or washing.
If the debridement was excisional, please also include:
1. Type of instrument used (#11 blade, #15 blade etc.)
Use of terms such as suspected, likely, concern for, or probable (associated with a specific diagnosis that is being evaluated, monitored, or treated as if it exists) are acceptable and can be coded in the inpatient setting, when documented at the
time of discharge.
Thank you,
YAHAIRA Ingram RN
CDI Specialist
available via tiger text
Please use your independent medical judgment in providing your response.
--- NOTE | 2025-03-03 13:35 | CM ---
Per updated notes patient no longer needs IV infusion, ZHAO drain removed and plan is for discharge today, patient is currently on 2 liters of oxygen, plan is to home with [facility], patient has a palliative care appointment.
Plan; Home with [facility].
--- NOTE | 2025-03-03 14:24 | W.DCSUMMARY ---
Discharge Summary
Discharge Data
Date of Admission: 02/18/25
Date of Discharge: 03/03/25
-
Pending Results: No
Hospital Course
Primary diagnoses:
Sepsis due to L scrotal cellulitis/abscess status post drainage/exploration on 02/27/25
Acute kidney injury
Type 2 diabetes mellitus
Secondary diagnoses:
Morbid obesity due to excess calories
Essential Hypertension
Hyperlipidemia
Non-AG Metabolic Acidosis
Consults:
Urology
Infectious disease
Imaging:
CT A/P 02/18/25: Stranding soft tissue density involving the visualized superior left hemiscrotum. Reported history of recent injury. This could represent stranding from contusion. Main differential consideration of stranding from
inflammation/infection. Of note, the entire scrotum including the testicles are not fully included on the [id number] of this examination. There is no evidence for bowel herniation. Fatty infiltration the liver. Two 2 mm calcification within the
pancreas, compatible with benign dystrophic calcifications. No CT findings to suggest acute pancreatitis. Mild to moderate atrophy of the left kidney, asymmetric compared to the right. Bony degenerative changes as described. Mild to moderate atrophy
of the left kidney, asymmetric compared to the right. No gross evidence for significant narrowing of the left renal artery. No other focal abnormality of the kidneys. The visualized pelvicalyceal systems and ureters appear within normal limits. No
abnormality of the urinary bladder.
Scrotal US 02/18/25: Normal sonographic appearance of both testes. Small to moderate-sized right hydrocele. Minimal left hydrocele. Suggestion of mild left-sided scrotal skin thickening, greater than on the right.
55-year-old male who presented with chief complaint of left scrotal swelling as outlined in the H&P done on admission. Hospital course by problem list:
Sepsis due to L scrotal cellulitis/abscess: Imaging above. The patient met sepsis criteria on admission. He was placed on IV Zosyn. He was seen in consultation by urology. With persistent leukocytosis and scrotal edema his antibiotics were
changed to vancomycin and Rocephin. Infectious disease saw the patient consultation antibiotics were changed to daptomycin and subsequently ertapenem was added. On February 27, 2025 the patient underwent scrotal abscess drainage/exploration. All
culture data was no growth. The patient improved clinically. His leukocytosis resolved. He is being discharged on daptomycin and ertapenem through March 10, 2025.
NIVIA: No hydronephrosis or bladder abnormality seen on CT above. The patient received IVF resulting in swelling. He subsequently received one dose Lasix 20mg IV x 1 (not heart failure; iatrogenic swelling). This HCTZ was stopped. Cr increased to 1.6
on 03/01/25, his Lisinopril was held, and IV Toradol was stopped (ordered by urology). IVFs were resumed. NIVIA and non-AG metabolic acidosis resolved.
DM2: a1c 12, patient was started on basal bolus insulin as directed by the diabetes nurse practitioner.
Discharge Plan
-
Patient Disposition: Home with Home Care
Discharge Diagnosis/Procedures: Sepsis due to L scrotal cellulitis/abscess status post drainage/exploration on 02/27/25
Condition: Good
Diet: Diabetic, Carb Controlled
Activity: As tolerated
Driving Restrictions: As prior to admission
Activity Restrictions/Additional Instructions:
Wound Care Instructions
L scrotal wound care-as per urologist's instructions.
Follow up with Dr. Roman.
Follow up at wound care center call for an appointment.
Referrals:
Preet Galicia MD [Active, Urology] - in one to two weeks
Merlin Smiley MD [Family Provider, Family Practice] - in less than 1 week
Prescriptions:
New
insulin glargine [Lantus Solostar U-100 Insulin] 100 unit/mL (3 mL) Insulin Pen
22 unit SC HS Qty: 5 0RF
Rx Instructions:
Take 22 units at bedtime
(DME) Contour Next Test Strips Strip
Qty: 200 0RF
Rx Instructions:
PATIENT TESTING 4 TIMES A DAY
(DME) lancets [Color Lancets] 21 gauge Misc
Qty: 200 0RF
Rx Instructions:
PATIENT TESTING 4 TIMES A DAY
(DME) pen needle, diabetic [Ирина 2nd Gen Pen Needle] 32 gauge x 5/32' Needle
Qty: 1,200 0RF
Rx Instructions:
PATIENT TAKINF INSULIN 4 TIMES A DAY
tamsulosin 0.4 mg Capsule
0.4 mg PO DAILY Qty: 30 0RF
DAPTOmycin [Cubicin] 1000 MG
Syringe [Syringe-Pump] 0 ML
As Directed mls/hr IV Q24H
Ordered By: Greg Mike MD
Last Taken: 03/02/25 17:57 20 mls
Ertapenem [Invanz] 1000 MG
0.9% Sodium Chloride [Nss] 50 ML
120 mls/hr IV Q24H
Ordered By: Greg Mike MD
Last Taken: 03/02/25 16:40 60 mls
amlodipine [Norvasc] 5 mg tablet
5 mg PO DAILY Qty: 30 0RF
pantoprazole 40 mg Tablet,Delayed Release (Dr/Ec)
40 mg PO DAILY Qty: 0 0RF
insulin aspart U-100 [Novolog FlexPen U-100 Insulin] 100 unit/mL (3 mL) Insulin Pen
30 unit SC AC Qty: 5 0RF
Rx Instructions:
TAKE 30 UNITS BEFORE EACH MEAL
insulin glargine [Lantus Solostar U-100 Insulin] 100 unit/mL (3 mL) Insulin Pen
28 unit SC HS Qty: 5 0RF
Rx Instructions:
TAKE AT BEDTIME
Continued
metformin 1,000 mg tablet
1,000 mg PO BID@0800,1700 Qty: 60 0RF
Changed
lisinopril 40 mg tablet
40 mg PO DAILY Qty: 0 0RF
hydrochlorothiazide 12.5 mg tablet
12.5 mg PO DAILY Qty: 0 0RF
Discontinued
atorvastatin 40 mg tablet
40 mg PO HS
glipizide 10 mg tablet
10 mg PO BID@0800,1700
Discharge Orders:
Discharge Patient (As Directed); Ordered 03/03/25
Ordered By: Greg Mike
Discharge Date and Time
Print Language: HUNGARIAN
[2025-03-03 15:00] VITALS: BP 151/112
[2025-03-03] MEDS: CUBICIN 20 MG IV (15:07)
[2025-03-03] MEDS: INVANZ 60 MG IV (15:08)
--- NOTE | 2025-03-03 16:35 | W.PN.URO.CBU ---
Today's Communication / Plan
-
ready for d/c
Assessment / Plan
-
scrotal cellulitis developed into abscess
s/p I+D
pt much improved clinically
packing changed at bedside with wound care- large cavity- but clean with no infection or tissue
may restart subq heparin tomorrow if no bleeding
track wbc and cx's- ID following
urology will perfomr daily dressing changes over the weekend- and if stable- then convert to nursing-teach (says she is willing to learn)
for discharge will need [facility] (order entered) and outpt wound care consult
will follow
Diagnosis
-
Date of Service: March 03, 2025
-
Patient Diagnosis:
Post Op Day:
Patient Diagnosis:
Post Op Day:
Patient Diagnosis:
Post Op Day:
Patient Diagnosis:
Left scrotal cellulitis
Scrotal abscess
s/p I+D and debridement 02/27
Subjective
-
feeling better
Objective
-
Vital Signs
Temp Pulse Resp BP Pulse Ox
98.5 F 105 18 151/112 99
03/03/25 15:00 03/03/25 15:00 03/03/25 15:00 03/03/25 15:00 03/03/25 15:00
Intake and Output
03/02/25 03/03/25 03/04/25
06:59 06:59 06:59
Intake Total 1380 / 1380 480 / 480
Output Total 780 / 780 375 / 375
Balance 600 / 600 105 / 105
Intake:
Oral fluids 480 / 480 480 / 480
IV fluids (Total) 900 / 900 0 / 0
IV piggybacks 0 / 0
Output:
Urine, Voided 780 / 780 375 / 375
Other:
Number of approximated MODERATE 1
amounts of urine
Laboratory Results
03/03/25 07:19
03/03/25 07:19
Review of Systems
-
: Other (scrotum healing)
Physical Exam
-
General - well developed, well nourished, no acute distress
Chest - clear bilaterally
Abdomen - soft, non-tender, positive bowel sounds, no CVAT, no incisional pain or distention
Genitalia - granulating in re packed
Rectal - normal
Skin - warm & dry with no rash
Neuro - AOx3, no motor deficits
Extremities - no clubbing, no cyanosis, no edema
Incision - clean, dry
Dressing - clean, dry, intact
Care Review
Data Reviewed
Discussed with: Nursing
== END 2025-03-03 16:39 | disposition home or self-care (01) | DRG 854 ==
LOC: 4 WEST ACU 12:21
PROVIDERS: Hospitalist; Specialist; ADMITTING PHYSICIAN Student in an Organized Health Care Education/Training Program; ATTENDING PHYSICIAN Internal Medicine; CONSULT PHYSICIAN Internal Medicine Infectious Disease; EMERGENCY PHYSICIAN Emergency Medicine; FAMILY PHYSICIAN Family Medicine; OTHER PHYSICIAN Urology
PROC: 0VB50ZZ Excision of Scrotum, Open Approach (ICD-10-PCS; 2025-02-27)
DX: A41.9 Sepsis, unspecified organism (principal); E87.20 Acidosis, unspecified; N17.9 Acute kidney failure, unspecified; Z68.41 Body mass index [BMI] 40.0-44.9, adult; N49.2 Inflammatory disorders of scrotum; E11.9 Type 2 diabetes mellitus without complications; E66.01 Morbid (severe) obesity due to excess calories; I10 Essential (primary) hypertension; E78.5 Hyperlipidemia, unspecified; N26.1 Atrophy of kidney (terminal); N43.3 Hydrocele, unspecified; K76.0 Fatty (change of) liver, not elsewhere classified; Z79.84 Long term (current) use of oral hypoglycemic drugs; Z87.891 Personal history of nicotine dependence
CPT/HCPCS: 72193; 74177; 76870; 80048; 80053; 80202; 81003; 81015; 82550; 82962; 83036; 83605; 83735; 85025; 85027; 87040; 87070; 87075; 87205; 93005; 93976; 96361; 96365; 96375; 99285; J0878; J1335; Q9967